=== PATIENT | male | born 1965 | race Caucasian/White ===

== ENCOUNTER 2016-11-20 14:26 | Emergency (ER) | payer OTHER ==
[2016-11-20 14:46] VITALS: O2SAT 93
[2016-11-20] MEDS ORDERED: BACIGUENT PACKET ONE (16:54)
[2016-11-20] MEDS ORDERED: XYLOCAINE 1% HCL 20 ML MDV ONE (16:54)
[2016-11-20] MEDS ORDERED: BACIGUENT PACKET TP ONE (17:09)
[2016-11-20] MEDS ORDERED: XYLOCAINE 1% HCL 20 ML MDV IJ ONE (17:09)
--- NOTE | 2016-11-20 17:48 | ERPHSYRPT ---
- History of Present Illness Time Seen by Provider: 11/20/16 17:43 Source: patient Exam Limitations: no limitations Patient Subjective Stated Complaint: pt states he lacerated left hand while cutting roscoe. pt has laceration to left palm. Triage Nursing Assessment: pt pink, warm, dry. bleeding controlled with pressure dressing. pt has 4cm laceration to left medial palm on left hand. Physician History: The patient is a right-handed 51-year-old male who accidentally cut the palm of his left hand near his thumb with a knife while cutting material for roscoe. This happened earlier today. He denies numbness or tingling. He denies any problems with movement of his fingers or thumb his last tetanus vaccination was last year. Occurred: just prior to arrival Method of Injury: incised Quality: constant Severity of Pain-Max: mild Severity of Pain-Current: mild Extremities Pain Location: hand: left Modifying Factors: Improves With: nothing Associated Symptoms: none Allergies/Adverse Reactions: codeine Allergy (Intermediate, Verified 11/20/16 14:46) Hives Hx Tetanus, Diphtheria Vaccination/Date Given: Yes (up to date) Hx Influenza Vaccination/Date Given: No Hx Pneumococcal Vaccination/Date Given: No Immunizations Up to Date: Yes - Review of Systems Constitutional: No Fever, No Chills Eyes: No Symptoms Ears, Nose, & Throat: No Symptoms Respiratory: No Cough, No Dyspnea Cardiac: No Chest Pain, No Edema, No Syncope Abdominal/Gastrointestinal: No Abdominal Pain, No Nausea, No Vomiting, No Diarrhea Genitourinary Symptoms: No Dysuria Musculoskeletal: No Back Pain, No Neck Pain Skin: Other (laceration) Neurological: No Dizziness, No Focal Weakness, No Sensory Changes Psychological: No Symptoms Endocrine: No Symptoms Hematologic/Lymphatic: No Symptoms Immunological/Allergic: No Symptoms All Other Systems: Reviewed and Negative - Past Medical History Pertinent Past Medical History: Yes Respiratory History: Asthma Musculoskeletal History: Other Other Medical History: mrsa/ Hep C - Past Surgical History Past Surgical History: No Other Surgical History: drainage tube in head, left eye, right chin - Social History Smoking Status: Current every day smoker How long have you smoked: 45 Exposure to second hand smoke: No Drug Use: none Patient Lives Alone: No - Nursing Vital Signs Nursing Vital Signs: Initial Vital Signs Temperature 97.8 F Temperature Source Oral Pulse Rate 65 Respiratory Rate 16 Blood Pressure [Right Arm] 138/66 Pain Intensity 0 - Physical Exam General Appearance: alert Eyes, Ears, Nose, Throat Exam: moist mucous membranes Neck Exam: non-tender, supple Cardiovascular/Respiratory Exam: chest non-tender, normal breath sounds, regular rate/rhythm, no respiratory distress Abdominal Exam: non-tender, No guarding Back Exam: normal inspection, No vertebral tenderness Shoulder Exam: normal inspection Elbow/Forearm Exam: normal inspection Wrist Exam: normal inspection Hand Exam: laceration (left palm lac) Neuro/Tendon Exam: normal sensation, normal motor functions Mental Status Exam: alert, oriented x 3, cooperative Skin Exam: laceration (2 cm lac) SpO2 Interpretation: normal SpO2: 93 Oxygen Delivery: Room Air Procedures - Laceration/Wound Repair Left Hand Wound Location: Left, hand Wound's Depth, Shape: superficial, linear Wound Explored: clean Irrigated: Yes Hibiclens Prep: Yes Anesthesia: 1% Lidocaine Volume Anesthetic (ccs): 12 Wound Repaired With: sutures Suture Size/Type: 4-0, nylon Number of Sutures: 5 Layer Closure?: No Sterile Dressing Applied?: Yes Splint Applied?: No Sling Applied?: No Ordered Tests: Active Orders 24 hr Category Date Time Status Prepare for Sutures STAT Care 11/20/16 17:09 Active Sutures STAT Care 11/20/16 17:10 Active Wound Care STAT Care 11/20/16 17:09 Active Medication Summary Discontinued Medications Generic Name Dose Route Start Last Admin Trade Name Freq PRN Reason Stop Dose Admin Bacitracin Confirm 11/20/16 16:54 Baciguent Packet Administered 11/20/16 16:55 Dose 1 gm .ROUTE .STK-MED ONE Bacitracin 0.9 gm 11/20/16 17:09 11/20/16 17:32 Baciguent Packet TP 11/20/16 17:10 0.9 gm STAT ONE Administration Lidocaine HCl Confirm 11/20/16 16:54 Xylocaine 1% Hcl 20 Ml Mdv Administered 11/20/16 16:55 Dose 20 ml .ROUTE .STK-MED ONE Lidocaine HCl 20 ml 11/20/16 17:09 11/20/16 17:31 Xylocaine 1% Hcl 20 Ml Mdv IJ 11/20/16 17:10 20 ml STAT ONE Administration - Progress Progress: improved Counseled pt/family regarding: diagnosis - Departure Time of Disposition: 17:47 Departure Disposition: Home Clinical Impression: Laceration of hand Condition: Stable Critical Care Time: No Instructions: Care for a Laceration After Repair Additional Instructions: Remove sutures in 12 to 14 days. Augmentin 875 twice a day for 10 days. Prescriptions: Amoxicillin/Potassium Clav [Augmentin 875-125 Tablet] 875 mg PO BID #20 tablet
[2016-11-20 17:59] VITALS: BP 136/77; PULSE 68
== END 2016-11-20 17:59 | disposition home or self-care (01) ==
LOC: ED 14:26
PROC: 0HQGXZZ Repair Left Hand Skin, External Approach (ICD-10-PCS; principal; 2016-11-20)
DX: S61.412A Laceration without foreign body of left hand, initial encounter (principal); W26.0XXA Contact with knife, initial encounter; Y93.H3 Activity, building and construction
CPT/HCPCS: 12001; 99283; A9270-GY

== ENCOUNTER 2016-12-06 09:25 | Emergency (ER) | payer OTHER ==
[2016-12-06 09:38] VITALS: O2SAT 97
--- NOTE | 2016-12-06 09:47 | ERPHSYRPT ---
- History of Present Illness Time Seen by Provider: 12/06/16 09:35 Source: patient Exam Limitations: no limitations Patient Subjective Stated Complaint: PT REPORTS HAVING STITCHES PUT IN HIS LEFT HAND ON THE 15TH-STATES HE STOPPED TAKING ANTIBIOTICS DUE TO UPSET STOMACH- STATES THAT WOUND IS INFECTED Triage Nursing Assessment: PT PINK WARM ET DRY-5 STITCHES NOTED TO LEFT HAND- REDNESS NOTED TO HAND-RESP EASY ET NONLABORED Timing/Duration: week(s) (2) Quality: other (sutures have released with wound granulation by secondary healing) Severity: mild Location: hands Possible Causes: other (infected laceration site) Associated Symptoms: denies symptoms Allergies/Adverse Reactions: codeine Allergy (Intermediate, Verified 12/06/16 09:38) Hives Home Medications: No Home Meds 1 ea UD 12/06/16 [History] Hx Tetanus, Diphtheria Vaccination/Date Given: Yes Hx Influenza Vaccination/Date Given: No Hx Pneumococcal Vaccination/Date Given: No Immunizations Up to Date: Yes - Review of Systems Constitutional: No Symptoms Eyes: No Symptoms Ears, Nose, & Throat: No Symptoms Respiratory: No Symptoms Cardiac: No Symptoms Abdominal/Gastrointestinal: No Symptoms Musculoskeletal: No Symptoms Skin: Other, No Induration Neurological: No Symptoms Psychological: No Symptoms Endocrine: No Symptoms Hematologic/Lymphatic: No Symptoms Immunological/Allergic: No Symptoms - Past Medical History Pertinent Past Medical History: Yes Respiratory History: Asthma Musculoskeletal History: Other Other Medical History: mrsa/ Hep C - Past Surgical History Past Surgical History: No Other Surgical History: drainage tube in head, left eye, right chin - Social History Smoking Status: Current every day smoker How long have you smoked: 45 Exposure to second hand smoke: No Drug Use: none Patient Lives Alone: No - Nursing Vital Signs Nursing Vital Signs: Initial Vital Signs Temperature 98.5 F Temperature Source Oral Pulse Rate 70 Respiratory Rate 22 Blood Pressure [Right Arm] 151/92 Pain Intensity 4 - Physical Exam General Appearance: no apparent distress Eye Exam: eyes nml inspection Ears, Nose, Throat Exam: normal ENT inspection, pharynx normal Neck Exam: normal inspection, non-tender, supple, full range of motion Respiratory Exam: normal breath sounds, lungs clear Cardiovascular Exam: regular rate/rhythm, normal heart sounds, normal peripheral pulses Gastrointestinal/Abdomen Exam: soft, normal bowel sounds Extremity Exam: normal range of motion, other (minimal erythema left wrist volar surface with wound dehisced and granulation of 3 cm vertical laceration. Sutures intact to lateral aspect of wound. No drainage or purulence. ) Neurologic Exam: alert, oriented x 3, cooperative Skin Exam: warm, dry SpO2: 97 Oxygen Delivery: Room Air - Course Nursing assessment & vital signs reviewed: Yes - Progress Progress: improved Counseled pt/family regarding: diagnosis, need for follow-up (PCP 1 week) - Departure Time of Disposition: 09:45 Departure Disposition: Home Clinical Impression: Laceration, Visit for suture removal Wound dehiscence, external operation Qualifiers: Encounter type: sequela Qualified Code(s): T81.31XS - Disruption of external operation (surgical) wound, not elsewhere classified, sequela Condition: Stable Critical Care Time: No Prescriptions: Cephalexin Mh 500 mg [Keflex 500 mg] 1 cap PO QID #40 capsule
[2016-12-06 10:08] VITALS: BP 160/85; PULSE 65
== END 2016-12-06 10:07 | disposition home or self-care (01) ==
LOC: ED 09:25
DX: T81.31XD Disruption of external operation (surgical) wound, not elsewhere classified, subsequent encounter (principal); Z48.02 Encounter for removal of sutures
CPT/HCPCS: 99284

== ENCOUNTER 2020-01-09 12:29 | Emergency (ER) | payer OTHER ==
--- NOTE | 2020-01-09 13:13 | ERPHSYRPT ---
- History of Present Illness Time Seen by Provider: 01/09/20 12:39 Source: patient Exam Limitations: other (Poor Historian) Patient Subjective Stated Complaint: pt states he was fishing and tripped in rocks and twisted left ankle, he aslo has laceration to top of foot. Triage Nursing Assessment: pt alert, resp easy, walked in on crutches, pt has laceration to top of foot that pt has already placed super glue on,no bleeding, no swelling to foot or ankle noted Physician History: 54 yo wm fell while fishing at 7AM. Pt has a dorsal L foot lac which he used super glue to close. Pain is 10/10. He denies other injuries and tetanus is UTD. Method of Injury: fell Occurred: other (6 hours ago) Quality: constant Severity of Pain-Max: severe Severity of Pain-Current: severe Lower Extremities Pain: foot: right Modifying Factors: Improves With: nothing Associated Symptoms: none Allergies/Adverse Reactions: codeine Allergy (Intermediate, Verified 12/06/16 09:38) Hives Home Medications: No Home Meds [No Home Meds] 1 ea UD 12/06/16 [History] Hx Tetanus, Diphtheria Vaccination/Date Given: Yes (2 yrs ago) Hx Influenza Vaccination/Date Given: No Hx Pneumococcal Vaccination/Date Given: No Immunizations Up to Date: Yes Travel Risk - International Travel Have you traveled outside of the country in past 3 weeks: No Have you or anyone close to you been diagnosed with or: No Do your reside in a community with a known COVID-19 case?: Yes If Yes where:: [place] - Coronavirus Screening Has patient experienced Coronavirus symptoms: No - Review of Systems Constitutional: No Symptoms Eyes: No Symptoms Ears, Nose, & Throat: No Symptoms Respiratory: Wheezing Cardiac: No Symptoms Abdominal/Gastrointestinal: No Symptoms Genitourinary Symptoms: No Symptoms Skin: No Symptoms Neurological: No Symptoms Psychological: No Symptoms Endocrine: No Symptoms Hematologic/Lymphatic: No Symptoms Immunological/Allergic: No Symptoms - Past Medical History Pertinent Past Medical History: Yes Neurological History: No Pertinent History ENT History: No Pertinent History Cardiac History: No Pertinent History Respiratory History: Asthma Musculoskeletal History: No Pertinent History, Other GI Medical History: No Pertinent History History: No Pertinent History Psycho-Social History: No Pertinent History Male Reproductive Disorders: No Pertinent History Other Medical History: mrsa/ Hep C - Past Surgical History Past Surgical History: No Neuro Surgical History: No Pertinent History Cardiac: No Pertinent History Respiratory: No Pertinent History Gastrointestinal: No Pertinent History Genitourinary: No Pertinent History Musculoskeletal: No Pertinent History Male Surgical History: No Pertinent History Other Surgical History: drainage tube in head, left eye, right chin - Social History Smoking Status: Current every day smoker (<1ppd) How long have you smoked: 45 Exposure to second hand smoke: Yes Alcohol Use: Socially Drug Use: none Patient Lives Alone: No Significant Family History: no pertinent family hx - Nursing Vital Signs Nursing Vital Signs: Initial Vital Signs Temperature 98.4 F 01/09/20 12:38 Pulse Rate 100 H 01/09/20 12:38 Respiratory Rate 20 01/09/20 12:38 Blood Pressure 191/109 01/09/20 12:38 O2 Sat by Pulse Oximetry 98 01/09/20 12:38 Pain Scale Pain Intensity 4 - Physical Exam General Appearance: no apparent distress (Mild pain) Eyes, Ears, Nose, Throat Exam: normal ENT inspection Neck Exam: normal inspection Cardiovascular/Respiratory Exam: chest non-tender, no JVD (Mildly tachy wo M/ Scattered wheezes B), wheezing Gastrointestinal/Abdominal Exam: non-tender Back Exam: normal inspection Hips Exam: bilateral: non-tender, normal inspection, normal range of motion Legs Exam: bilateral leg: non-tender, normal inspection, normal range of motion Knees Exam: bilateral knee: non-tender, normal inspection, normal range of motion, no evidence of injury Ankle Exam: bilateral ankle: non-tender, normal inspection, normal range of motion, no evidence of injury Foot Exam: left foot: abrasions/lacerations (Dorsal abrasion L dorsal foot covwered in super glue/Good distal capillary return, sensation, and pedal pulse) Neuro/Tendon Exam: normal sensation, normal motor functions, normal tendon functions Mental Status Exam: alert, oriented x 3, cooperative Skin Exam: normal color, warm, dry SpO2 Interpretation: normal SpO2: 98 O2 Delivery: Room Air - Course Nursing assessment & vital signs reviewed: Yes - Radiology Exams Left Foot X-ray Interpretation: Interpreted by me, Negative, No Fracture Ordered Tests: Active Orders 24 hr Category Date Time Status [facility] Bandage Application -[facility] STAT Care 01/09/20 13:20 Active FOOT (MINIMUM 3 VIEWS) Stat Exams 01/09/20 12:57 Taken Medication Summary Discontinued Medications Generic Name Dose Route Start Last Admin Trade Name Freq PRN Reason Stop Dose Admin Ketorolac Tromethamine 60 mg 01/09/20 13:20 01/09/20 13:25 Toradol 30 Mg Injection IM 01/09/20 13:21 60 mg STAT ONE Administration Ketorolac Tromethamine Confirm 01/09/20 13:21 Toradol 30 Mg Injection Administered 01/09/20 13:22 Dose 60 mg .ROUTE .STK-MED ONE - Progress Progress: improved Progress Note: 01/09/20 13:44 Wound cleaned and dressed per nurse/NVI - Departure Departure Disposition: Home Clinical Impression: Laceration, Foot laceration Condition: Stable Critical Care Time: No Referrals: ЕЛЕНА DOVER [Primary Care Provider] - Additional Instructions: Wash laceration 1-2 times a day with soap/water Watch for signs of infection-redness/pain/pus/temperature greater than 100.5 Prescriptions: Ketorolac Tromethamine [Toradol] 10 mg PO Q8H PRN PRN #10 tablet PRN Reason: Pain Albuterol Sulfate [Albuterol Sulfate Hfa] 18 gm IH Q4-6HPRN PRN #1 [id number] PRN Reason: Shortness Of Breath/Wheezing Amox Tr/Potass Clav. 875 mg [Augmentin 875-125 Tablet] 1 each PO BID #14 tablet Naproxen 500 mg [Naprosyn 500 MG] 500 mg PO BIDPRN PRN #10 tablet PRN Reason: Pain
[2020-01-09] MEDS ORDERED: TORAdol 30 mg Injection IM ONE (13:20)
[2020-01-09] MEDS ORDERED: TORAdol 30 mg Injection ONE (13:21)
[2020-01-09 14:11] VITALS: BP 176/99; PULSE 80; O2SAT 95
--- NOTE | 2020-01-09 20:28 | XRAY ---
Indication: Pain following injury. Comparison: None 3 nonweightbearing views left foot demonstrates mild anterior soft tissue swelling. No other bony, articular, or soft tissue abnormalities.
== END 2020-01-09 14:18 | disposition home or self-care (01) ==
LOC: ED 12:29
DX: S91.312A Laceration without foreign body, left foot, initial encounter (principal); W26.9XXA Contact with unspecified sharp object(s), initial encounter; S90.812A Abrasion, left foot, initial encounter; Y99.9 Unspecified external cause status; X50.1XXA Overexertion from prolonged static or awkward postures, initial encounter; Y93.01 Activity, walking, marching and hiking; Y92.89 Other specified places as the place of occurrence of the external cause; M79.672 Pain in left foot; Z86.14 Personal history of Methicillin resistant Staphylococcus aureus infection; B19.20 Unspecified viral hepatitis C without hepatic coma; Z72.0 Tobacco use
CPT/HCPCS: 73630; 96372; 99284; J1885; L4386

== ENCOUNTER 2021-11-15 11:01 | Emergency (ER) | payer OTHER ==
--- NOTE | 2021-11-15 11:13 | ERPHSYRPT ---
- History of Present Illness Time Seen by Provider: 11/15/21 11:10 Source: patient Exam Limitations: no limitations Physician History: This is a 56-year-old white male patient of Dr. Jaimee Dover who presents with 1 week history of upper chest discomfort that radiates into his back intermittently and associated myalgias arthralgias and cough. He has been exposed to a grand daughter who been ill. Patient does not have significant shortness of breath. He has no abdominal pain. He has no nausea vomiting or diarrhea. He denies fever. Patient states that he has not been at work for the last week because he has felt ill. He has no known exposure to any individual with COVID-19. Patient states that he himself has no known cardiac issues. However, there is a family history of coronary artery disease. Timing/Duration: week(s) (1) Severity: mild (To moderate) Associated Symptoms: chest pain (Upper chest with radiation into the back), No nausea, No vomiting, No abdominal pain, No shortness of breath, No fever Allergies/Adverse Reactions: codeine Allergy (Intermediate, Verified 11/15/21 11:17) Hives Home Medications: No Home Meds [No Home Meds] 1 ea UD 12/06/16 [History] Hx Tetanus, Diphtheria Vaccination/Date Given: Yes (2 yrs ago) Hx Influenza Vaccination/Date Given: No Hx Pneumococcal Vaccination/Date Given: No Travel Risk - International Travel Have you traveled outside of the country in past 3 weeks: No - Coronavirus Screening Are you exhibiting any of the following symptoms?: No Close contact with a COVID-19 positive Pt in past 14-21 Days: No - Review of Systems Constitutional: No Symptoms Eyes: No Symptoms Ears, Nose, & Throat: No Symptoms Respiratory: No Symptoms Cardiac: Chest Pain Abdominal/Gastrointestinal: No Symptoms Genitourinary Symptoms: No Symptoms Musculoskeletal: Arthralgias, Myalgias Skin: No Symptoms Neurological: No Symptoms Psychological: No Symptoms Endocrine: No Symptoms Hematologic/Lymphatic: No Symptoms Immunological/Allergic: No Symptoms All Other Systems: Reviewed and Negative - Past Medical History Pertinent Past Medical History: Yes Neurological History: No Pertinent History ENT History: No Pertinent History Cardiac History: No Pertinent History Respiratory History: Asthma Musculoskeletal History: No Pertinent History, Other GI Medical History: No Pertinent History History: No Pertinent History Psycho-Social History: No Pertinent History Male Reproductive Disorders: No Pertinent History Other Medical History: mrsa/ Hep C - Past Surgical History Past Surgical History: No Neuro Surgical History: No Pertinent History Cardiac: No Pertinent History Respiratory: No Pertinent History Gastrointestinal: No Pertinent History Genitourinary: No Pertinent History Musculoskeletal: No Pertinent History Male Surgical History: No Pertinent History Other Surgical History: drainage tube in head, left eye, right chin - Social History Smoking Status: Current every day smoker (<1ppd) How long have you smoked: 45 Exposure to second hand smoke: Yes Alcohol Use: Socially Drug Use: none Patient Lives Alone: No Significant Family History: no pertinent family hx - Nursing Vital Signs Nursing Vital Signs: Initial Vital Signs Pulse Rate 70 11/15/21 11:02 Pain Scale Pain Intensity 2 - Physical Exam General Appearance: no apparent distress, alert, anxiety Eye Exam: PERRL/EOMI, eyes nml inspection Ears, Nose, Throat Exam: normal ENT inspection, moist mucous membranes Neck Exam: normal inspection, non-tender, supple, full range of motion Respiratory Exam: normal breath sounds, chest tenderness, lungs clear, airway intact, No respiratory distress Cardiovascular Exam: regular rate/rhythm, normal heart sounds, normal peripheral pulses Gastrointestinal/Abdomen Exam: soft, normal bowel sounds, No tenderness Rectal Exam: not done Back Exam: normal inspection, normal range of motion, No CVA tenderness, No vertebral tenderness Extremity Exam: normal inspection, normal range of motion, pelvis stable Neurologic Exam: alert, oriented x 3, cooperative, records coordinator II-XII nml as tested, normal mood/affect, nml cerebellar function, nml station & gait, sensation nml Skin Exam: normal color, warm, dry Lymphatic Exam: No adenopathy SpO2 Interpretation: normal O2 Delivery: Room Air - Course Nursing assessment & vital signs reviewed: Yes EKG Interpreted by Me: RATE (77), Sinus Rhythm, NORMAL AXIS, NORMAL INTERVALS, NORMAL QRS, NORMAL ST-T, Other (No acute ischemic changes on today's EKG. I compared today's EKG with that of 01/03/2016) Ordered Tests: Active Orders 24 hr Category Date Time Status Otolaryngology Teacher STAT Care 11/15/21 11:17 Active EKG-ER Only STAT Care 11/15/21 11:16 Active IV Insertion STAT Care 11/15/21 11:16 Active Pulse Oximetry (ED) STAT Care 11/15/21 11:16 Active CHEST 1 VIEW (PORTABLE) Stat Exams 11/15/21 11:16 Completed CHEST WITH CONTRAST [CT] Stat Exams 11/15/21 13:33 Completed BLOOD CULTURE Stat Lab 11/15/21 11:58 Received CBC W DIFF Stat Lab 11/15/21 11:50 Completed CMP Stat Lab 11/15/21 11:50 Completed COVID AG-BINAX NOW RAPID TEST Stat Lab 11/15/21 11:18 Completed D-DIMER QUANTITATIVE Stat Lab 11/15/21 11:50 Completed INFLUENZA A+B MEIR Stat Lab 11/15/21 11:17 Completed Lactic Acid Stat Lab 11/15/21 11:50 Completed Mcleod Screen Stat Lab 11/15/21 11:50 Completed NT PRO BNP Stat Lab 11/15/21 11:50 Completed PROTIME WITH INR Stat Lab 11/15/21 11:50 Completed TROPONIN Q3H Lab 11/15/21 11:50 Completed Medication Summary Generic Name Dose Route Start Last Admin Trade Name Freq PRN Reason Stop Dose Admin Sodium Chloride 1,000 mls @ 100 mls/hr 11/15/21 11:30 11/15/21 11:25 Sodium Chloride 0.9% 1000 Ml IV 12/15/21 11:29 100 mls/hr .Q10H MALICK Administration Discontinued Medications Generic Name Dose Route Start Last Admin Trade Name Freq PRN Reason Stop Dose Admin Aspirin 324 mg 11/15/21 11:16 11/15/21 11:25 Aspirin 81 Mg Tab.Chew PO 11/15/21 11:17 324 mg STAT ONE Administration Aspirin Confirm 11/15/21 11:23 Aspirin 81 Mg Tab.Chew Administered 11/15/21 11:24 Dose 324 mg .ROUTE .STK-MED ONE Lab/Rad Data: Laboratory Result Diagrams 11/15/21 11:50 11/15/21 11:50 Laboratory Results 11/15/21 11/15/21 11/15/21 Range/Units 11:50 11:50 11:50 WBC (4.0-10.5) K/mm3 RBC (4.1-5.6) M/mm3 Hgb (12.5-18.0) gm/dl Hct (42-50) % MCV (78-100) fl MCH (26-32) pg MCHC (32-36) g/dl RDW (11.5-14.0) % Plt Count (150-450) K/mm3 MPV (7.5-11.0) fl Gran % (36.0-66.0) % Eos # (Auto) (0-0.5) Absolute Lymphs (auto) (1.0-4.6) Absolute Monos (auto) (0.0-1.3) Lymphocytes % (24.0-44.0) % Monocytes % (0.0-12.0) % Eosinophils % (0.00-5.0) % Basophils % (0.0-0.4) % Absolute Granulocytes (1.4-6.9) Basophils # (0-0.4) PT 12.5 (9.4-12.5) SECONDS INR 1.06 (0.8-3.0) D-Dimer 916 H* (215-500) ng/mL Sodium (137-145) mmol/L Potassium (3.5-5.1) mmol/L Chloride (98-107) mmol/L Carbon Dioxide (22-30) mmol/L Anion Gap (5-15) MEQ/L BUN (9-20) mg/dL Creatinine (0.66-1.25) mg/dL Estimated GFR ML/MIN Glucose (74-106) mg/dL Lactic Acid (0.4-2.0) Calcium (8.4-10.2) mg/dL Total Bilirubin (0.2-1.3) mg/dL AST (17-59) U/L ALT (0-50) U/L Alkaline Phosphatase (38-126) U/L Troponin I < 0.012 (0.000-0.034) ng/mL NT-Pro-B Natriuret Pep (0-900) pg/mL Serum Total Protein (6.3-8.2) g/dL Albumin (3.5-5.0) g/dL Monoscreen NEGATIVE (Negative) Influenza Type A Ag (NEGATIVE) Influenza Type B Ag (NEGATIVE) SARS-CoV-2 Ag (Rapid) (NEGATIVE) Group A Strep Antibody (NEGATIVE) 11/15/21 11/15/21 11/15/21 Range/Units 11:50 11:50 11:50 WBC 6.8 (4.0-10.5) K/mm3 RBC 4.20 (4.1-5.6) M/mm3 Hgb 12.5 (12.5-18.0) gm/dl Hct 38.8 L (42-50) % MCV 92.4 (78-100) fl MCH 29.8 (26-32) pg MCHC 32.2 (32-36) g/dl RDW 12.7 (11.5-14.0) % Plt Count 330 (150-450) K/mm3 MPV 10.5 (7.5-11.0) fl Gran % 63.7 (36.0-66.0) % Eos # (Auto) 0.07 (0-0.5) Absolute Lymphs (auto) 1.74 (1.0-4.6) Absolute Monos (auto) 0.64 (0.0-1.3) Lymphocytes % 25.6 (24.0-44.0) % Monocytes % 9.4 (0.0-12.0) % Eosinophils % 1.0 (0.00-5.0) % Basophils % 0.3 (0.0-0.4) % Absolute Granulocytes 4.32 (1.4-6.9) Basophils # 0.02 (0-0.4) PT (9.4-12.5) SECONDS INR (0.8-3.0) D-Dimer (215-500) ng/mL Sodium 138 (137-145) mmol/L Potassium 4.3 (3.5-5.1) mmol/L Chloride 107 (98-107) mmol/L Carbon Dioxide 24 (22-30) mmol/L Anion Gap 11.3 (5-15) MEQ/L BUN 14 (9-20) mg/dL Creatinine 0.83 (0.66-1.25) mg/dL Estimated GFR > 60.0 ML/MIN Glucose 87 (74-106) mg/dL Lactic Acid 1.4 (0.4-2.0) Calcium 9.1 (8.4-10.2) mg/dL Total Bilirubin 0.30 (0.2-1.3) mg/dL AST 16 L (17-59) U/L ALT 14 (0-50) U/L Alkaline Phosphatase 69 (38-126) U/L Troponin I (0.000-0.034) ng/mL NT-Pro-B Natriuret Pep 470 (0-900) pg/mL Serum Total Protein 7.1 (6.3-8.2) g/dL Albumin 3.9 (3.5-5.0) g/dL Monoscreen (Negative) Influenza Type A Ag (NEGATIVE) Influenza Type B Ag (NEGATIVE) SARS-CoV-2 Ag (Rapid) (NEGATIVE) Group A Strep Antibody (NEGATIVE) 11/15/21 11/15/21 11/15/21 Range/Units 11:18 11:17 11:17 WBC (4.0-10.5) K/mm3 RBC (4.1-5.6) M/mm3 Hgb (12.5-18.0) gm/dl Hct (42-50) % MCV (78-100) fl MCH (26-32) pg MCHC (32-36) g/dl RDW (11.5-14.0) % Plt Count (150-450) K/mm3 MPV (7.5-11.0) fl Gran % (36.0-66.0) % Eos # (Auto) (0-0.5) Absolute Lymphs (auto) (1.0-4.6) Absolute Monos (auto) (0.0-1.3) Lymphocytes % (24.0-44.0) % Monocytes % (0.0-12.0) % Eosinophils % (0.00-5.0) % Basophils % (0.0-0.4) % Absolute Granulocytes (1.4-6.9) Basophils # (0-0.4) PT (9.4-12.5) SECONDS INR (0.8-3.0) D-Dimer (215-500) ng/mL Sodium (137-145) mmol/L Potassium (3.5-5.1) mmol/L Chloride (98-107) mmol/L Carbon Dioxide (22-30) mmol/L Anion Gap (5-15) MEQ/L BUN (9-20) mg/dL Creatinine (0.66-1.25) mg/dL Estimated GFR ML/MIN Glucose (74-106) mg/dL Lactic Acid (0.4-2.0) Calcium (8.4-10.2) mg/dL Total Bilirubin (0.2-1.3) mg/dL AST (17-59) U/L ALT (0-50) U/L Alkaline Phosphatase (38-126) U/L Troponin I (0.000-0.034) ng/mL NT-Pro-B Natriuret Pep (0-900) pg/mL Serum Total Protein (6.3-8.2) g/dL Albumin (3.5-5.0) g/dL Monoscreen (Negative) Influenza Type A Ag NEGATIVE (NEGATIVE) Influenza Type B Ag NEGATIVE (NEGATIVE) SARS-CoV-2 Ag (Rapid) NEGATIVE (NEGATIVE) Group A Strep Antibody NOT DETECTED (NEGATIVE) - Progress Progress: improved, re-examined Progress Note: 11/15/21 13:36 Chest x-ray shows no acute cardiopulmonary process. There are chronic changes present. - Departure Departure Disposition: Home Clinical Impression: Non-cardiac chest pain, Bronchitis Condition: Stable Critical Care Time: No Referrals: ЕЛЕНА DOVER [Primary Care Provider] - Follow up/PCP as directed Additional Instructions: Avoid exposure to any type of smoke. Take medication as prescribed. Follow-up with your primary care provider for further management. Prescriptions: Prednisone 10 mg [Deltasone 10 mg] 10 mg PO TID #12 tablet
[2021-11-15] MEDS ORDERED: BABY ASPIRIN 81 MG CHEW PO ONE (11:16)
[2021-11-15] MEDS ORDERED: BABY ASPIRIN 81 MG CHEW ONE (11:23)
[2021-11-15] MEDS ORDERED: Sodium Chloride 0.9% 1000 ML 1,000 ML ONE (11:23)
[2021-11-15] MEDS ORDERED: Sodium Chloride 0.9% 1000 ML 1,000 ML IV SCH (11:30)
--- NOTE | 2021-11-15 11:41 | XRAY ---
Indication: Cough 1 week. Chest pain. Comparison: January 03, 2016. Portable chest remains hyperinflated and clear. Heart not enlarged again with incidental hilar calcified granulomas. Bony thorax intact again with mild osteopenia, degenerative changes, and scoliosis. Impression: Continued nonacute hyperinflated chest with chronic features.
[2021-11-15 12:17] LABS: Absolute Neutrophil Ct (ANC) 4.32 (1.4-6.9); Basophil (Absolute #) 0.02 (0-0.4); Eosinophil (Absolute #) 0.07 (0-0.5); Hematocrit 38.8 % (42-50); Hemoglobin 12.5 gm/dl (12.5-18.0); Lymphocyte (Absolute #) 1.74 (1.0-4.6); Lymphocytes % 25.6 % (24.0-44.0); Mean Cell Volume 92.4 fl (78-100); Mean Corpuscular Hemoglobin 29.8 pg (26-32); Mean Corpuscular Hgb Concent. 32.2 g/dl (32-36); Mean Platelet Volume 10.5 fl (7.5-11.0); Monocyte (Absolute #) 0.64 (0.0-1.3); Monocytes % 9.4 % (0.0-12.0); Neutrophil % 63.7 % (36.0-66.0); Platelet Count 330 K/mm3 (150-450); Red Cell Distribution Width 12.7 % (11.5-14.0); White Blood Count 6.8 K/mm3 (4.0-10.5)
[2021-11-15 12:26] LABS: INR 1.06 (0.8-3.0); PROTIME 12.5 SECONDS (9.4-12.5)
[2021-11-15 12:40] LABS: COVID AG -BINAX NOW RAPID TEST NEGATIVE (NEGATIVE)
[2021-11-15 12:42] LABS: Potassium 4.3 mmol/L (3.5-5.1)
[2021-11-15 12:48] LABS: ALBUMIN 3.9 g/dL (3.5-5.0); ALKALINE PHOSPHATASE 69 U/L (38-126); BLOOD UREA NITROGEN 14 mg/dL (9-20); CHLORIDE 107 mmol/L (98-107); Calcium 9.1 mg/dL (8.4-10.2); Carbon Dioxide 24 mmol/L (22-30); Creatinine 1 0.83 mg/dL (0.66-1.25); EST GLOMERULAR FILTRATION RATE > 60.0 ML/MIN; Glucose 87 mg/dL (74-106); NT PRO BNP 470 pg/mL (0-900); SGOT/AST 16 U/L (17-59); SGPT/ALT 14 U/L (0-50); SODIUM 138 mmol/L (137-145); Total Protein 7.1 g/dL (6.3-8.2)
[2021-11-15 13:01] LABS: INFLUENZA A NEGATIVE (NEGATIVE); INFLUENZA B NEGATIVE (NEGATIVE)
[2021-11-15 13:03] LABS: ANION GAP 11.3 MEQ/L (5-15)
[2021-11-15 13:45] VITALS: O2SAT 100
[2021-11-15 13:47] VITALS: PULSE 88
[2021-11-15 13:48] VITALS: BP 139/77
--- NOTE | 2021-11-15 14:47 | XRAY ---
Indication: Chest pain and short of breath. Elevated d-dimer. Multiple contiguous axial images obtained through the chest using 100 cc Isovue 370 contrast and PE protocol. Comparison: January 04, 2016. There is good opacification of the pulmonary arteries to include the lobar and segmental branches. No pulmonary embolus. Heart not enlarged. Aorta normal in course and caliber with minimal scattered calcifications. Again multiple mediastinal and bilateral hilar calcified nodes. No pathologic mediastinal/hilar lymphadenopathy. Lungs again demonstrates bilateral scattered fibrosis/scarring and biapical subpleural cystic changes. No new pulmonary mass/nodule, infiltrate, or effusion. Bony thorax intact with minimal degenerative changes throughout the spine. Again incidental bilateral gynecomastia. Limited upper abdomen including adrenal glands are unremarkable. Impression: 1. Continued negative pulmonary embolus. No new/acute cardiopulmonary abnormalities. 2. Again chronic findings including scattered fibrosis/scarring, biapical subpleural cystic changes, old granulomatous disease, and bilateral gynecomastia.
== END 2021-11-15 15:56 | disposition home or self-care (01) ==
LOC: ED 11:01
DX: J20.9 Acute bronchitis, unspecified (principal); R07.89 Other chest pain; M79.10 Myalgia, unspecified site; R05.9 Cough, unspecified; Z20.828 Contact with and (suspected) exposure to other viral communicable diseases; Z72.0 Tobacco use; Z79.52 Long term (current) use of systemic steroids
CPT/HCPCS: 36000; 36415; 71045; 71260; 80053; 83605; 83880; 84484; 85025; 85379; 85610; 86308; 87040; 87400; 87651; 93005; 93041; 94760; 99000; 99284; A9270-GY

== ENCOUNTER 2022-01-13 21:12 | Emergency (ER) | payer OTHER | END 2022-01-13 21:53 | disposition left against medical advice (07) | LOC: ED 21:12 | DX: Z53.21 Procedure and treatment not carried out due to patient leaving prior to being seen by health care provider (principal) | CPT/HCPCS: 99281 ==

== ENCOUNTER 2023-05-24 05:16 | Emergency (ER) | payer OTHER ==
[2023-05-24] MEDS ORDERED: PROVENTIL 2.5 MG/3 ML NEB IH ONE (05:28)
[2023-05-24 05:34] VITALS: TEMP 96.5
[2023-05-24] MEDS ORDERED: ROCEPHIN 1 Gm-D5w 50 ml Bag** 1 G/50 ML IVPB IV STA (05:39)
[2023-05-24] MEDS ORDERED: solu-MEDROL 125 MG, Sterile H2O 10 ml 2 ML IV ONE ×2 (05:39)
[2023-05-24] MEDS ORDERED: Zithromax 500 MG/ 250 ML NaCl Premix 500 MG/250 ML IVPB IV STA (05:39)
--- NOTE | 2023-05-24 05:42 | ERPHSYRPT ---
- History of Present Illness Time Seen by Provider: 05/24/23 05:17 Source: patient Exam Limitations: no limitations Patient Subjective Stated Complaint: pt states that he hasn't been feeling that great for about one week and has been sob and wheezing intermittently. this m orning his sob got significantly worse and is accompanied by right sided chest pain with inhalation. Triage Nursing Assessment: pt ambulated to room 5 independently with slow steady gait after standing on scale for weight acquisition. pt is alert and oriented times three, able to move all extremities. pt with increased work of breathing, increased resp rate, and use of accessory muscles. inspiratory and expiratory wheezing noted from doorway. lung sounds auscultated anterior and posterior in all saleem with inspiratory and expiratory wheezes. skin is pink, warm, dry, and intact. heart sounds are present and regular. no edema noted. Physician History: Pt states he has had wheezing, coughing and a runny nose for the past week; also chest pain. Denies vomiting, abdominal pain, diarrhea. Allergies/Adverse Reactions: codeine Allergy (Intermediate, Verified 05/24/23 05:19) Hives Home Medications: Albuterol Sulfate 3 ml IH Q6H PRN PRN 05/24/23 [History] Albuterol Sulfate [Proair Respiclick] 2 puff IH Q6H PRN PRN 05/24/23 [History] Hx Tetanus, Diphtheria Vaccination/Date Given: Yes (2 yrs ago) Hx Influenza Vaccination/Date Given: Yes Hx Pneumococcal Vaccination/Date Given: No Immunizations Up to Date: Yes Travel Risk - International Travel Have you traveled outside of the country in past 3 weeks: No - Coronavirus Screening Are you exhibiting any of the following symptoms?: No Close contact with a COVID-19 positive Pt in past 14-21 Days: No - Vaccine Status Have you recieved a Covid-19 vaccination: No - Review of Systems Ears, Nose, & Throat: Nose Discharge Respiratory: Dyspnea Cardiac: Chest Pain Abdominal/Gastrointestinal: No Abdominal Pain, No Nausea, No Vomiting Genitourinary Symptoms: No Dysuria Neurological: No Headache - Past Medical History Pertinent Past Medical History: Yes Neurological History: No Pertinent History ENT History: No Pertinent History Cardiac History: No Pertinent History Respiratory History: Asthma Endocrine Medical History: No Pertinent History Musculoskeletal History: Other GI Medical History: Hepatitis History: No Pertinent History Psycho-Social History: No Pertinent History Male Reproductive Disorders: No Pertinent History Other Medical History: mrsa/ Hep C, sciatica - Past Surgical History Past Surgical History: Yes Neuro Surgical History: No Pertinent History Cardiac: No Pertinent History Respiratory: No Pertinent History Gastrointestinal: No Pertinent History Genitourinary: No Pertinent History Musculoskeletal: No Pertinent History Male Surgical History: No Pertinent History Other Surgical History: drainage tube in head, left eye, right chin - Social History Smoking Status: Current some day smoker How long have you smoked: 13yo Exposure to second hand smoke: Yes Alcohol Use: Socially Drug Use: none Patient Lives Alone: No Significant Family History: no pertinent family hx - Nursing Vital Signs Nursing Vital Signs: Initial Vital Signs Temperature 96.5 F 05/24/23 05:22 Pulse Rate 103 H 05/24/23 05:22 Respiratory Rate 24 05/24/23 05:22 Blood Pressure 143/83 05/24/23 05:22 O2 Sat by Pulse Oximetry 97 05/24/23 05:22 Pain Scale Pain Intensity 4 - Physical Exam General Appearance: alert Eye Exam: PERRL/EOMI Ears, Nose, Throat Exam: pharyngeal erythema (mild) Neck Exam: normal inspection Respiratory Exam: respiratory distress, wheezing Cardiovascular/Chest Exam: normal heart sounds Abdominal/Gastrointestinal Exam: soft, normal bowel sounds Extremity Exam: No pedal edema Neurologic Exam: alert, oriented x 3, cooperative Skin Exam: No cyanosis SpO2 Interpretation: normal SpO2: 98 - Course Nursing assessment & vital signs reviewed: Yes EKG Interpreted by Me: RATE (91), Sinus Rhythm, NORMAL AXIS, Other (QTc = 448) - CT Exams Chest CT Interpretation: Tele-radiologist Report (No evidence of pulmonary embolism. Interval development of mild bilateral pleural effusions. ) Ordered Tests: Active Orders 24 hr Category Date Time Status EKG-ER Only STAT Care 05/24/23 05:39 Active Pulse Oximetry (ED) STAT Care 05/24/23 05:39 Active CHEST WITH CONTRAST [CT] Stat Exams 05/24/23 05:39 Completed CBC W DIFF Stat Lab 05/24/23 05:56 Completed CMP Stat Lab 05/24/23 05:56 Completed MAGNESIUM Stat Lab 05/24/23 05:56 Completed TROPONIN Q4H Lab 05/24/23 05:56 Completed TROPONIN Q4H Lab 05/24/23 09:45 Ordered TROPONIN Q4H Lab 05/24/23 13:45 Ordered Respiratory Therapy Assessment DAILY RT 05/24/23 05:28 Active Medication Summary Generic Name Dose Route Start Last Admin Trade Name Freq PRN Reason Stop Dose Admin Sodium Chloride 1,000 mls @ 100 mls/hr 05/24/23 05:45 05/24/23 06:07 Sodium Chloride 0.9% 1000 Ml IV 06/23/23 05:44 100 mls/hr .Q10H MALICK Administration Diltiazem HCl 100 mls @ 10 mls/hr 05/24/23 07:51 05/24/23 08:05 Cardizem Drip 100 Mg/100 Ml D5w IV 06/23/23 07:50 10 mg/hr .Q10H PRN 10 mls/hr HEART RATE/ A-FIB Administration Protocol 10 MG/HR Discontinued Medications Generic Name Dose Route Start Last Admin Trade Name Gaurav PRN Reason Stop Dose Admin Adenosine Confirm 05/24/23 07:32 Adenosine 6 Mg/2 Ml Vial Administered 05/24/23 07:33 Dose 6 mg IV .STK-MED ONE Adenosine Confirm 05/24/23 07:37 Adenosine 6 Mg/2 Ml Vial Administered 05/24/23 07:38 Dose 12 mg IV .STK-MED ONE Adenosine 6 mg 05/24/23 07:48 05/24/23 07:36 Adenosine 6 Mg/2 Ml Vial IV 05/24/23 07:49 6 mg STAT ONE Administration Adenosine 12 mg 05/24/23 07:49 05/24/23 07:40 Adenosine 6 Mg/2 Ml Vial IV 05/24/23 07:50 12 mg STAT ONE Administration Albuterol Sulfate 2.5 mg 05/24/23 05:28 05/24/23 05:32 Albuterol Sulfate 2.5 Mg/3 Ml Neb IH 05/24/23 05:29 2.5 mg STAT ONE Administration Methylprednisolone Sodium 0 mg 05/24/23 05:39 05/24/23 06:08 Succinate 125 mg/ Sterile IV 05/24/23 05:40 125 mg Water 2 ml STAT ONE Administration Diltiazem HCl Confirm 05/24/23 07:42 Diltiazem Hcl Iv 5 Mg/Ml Vial Administered 05/24/23 07:43 Dose 50 mg IV .STK-MED ONE Diltiazem HCl 15 mg 05/24/23 07:49 05/24/23 08:05 Diltiazem Hcl Iv 5 Mg/Ml Vial IV 05/24/23 07:50 15 mg STAT ONE Administration Azithromycin 500 mg in 250 mls @ 250 mls/hr 05/24/23 05:39 05/24/23 06:40 Zithromax 500 Mg/ 250 Ml Nacl Premix IV 05/24/23 06:38 250 mls/hr STAT STA 250 mls/hr Administration Ceftriaxone Sodium/Dextrose 1 g in 50 mls @ 100 mls/hr 05/24/23 05:39 05/24/23 06:41 Rocephin 1 Gm-D5w 50 Ml Bag IV 05/24/23 06:08 Infused STAT STA Infusion Azithromycin Confirm 05/24/23 06:06 Zithromax 500 Mg/ 250 Ml Nacl Premix Administered 05/24/23 06:07 Dose 500 mg in 250 mls @ ud IV .STK-MED ONE Ceftriaxone Sodium/Dextrose Confirm 05/24/23 06:06 Rocephin 1 Gm-D5w 50 Ml Bag Administered 05/24/23 06:07 Dose 1 g in 50 mls @ ud IV .STK-MED ONE Diltiazem HCl Confirm 05/24/23 07:49 Cardizem Drip 100 Mg/100 Ml D5w Administered 05/24/23 07:50 Dose 100 mls @ ud IV .STK-MED ONE Methylprednisolone Sodium Succinate Confirm 05/24/23 06:06 Methylprednis Sod Succ 125 Mg/2 Ml Vial Administered 05/24/23 06:07 Dose 125 mg .ROUTE .STK-MED ONE Sterile Water Confirm 05/24/23 06:05 Water For Injection,Sterile 10 Ml Vial Administered 05/24/23 06:06 Dose 10 ml IJ .STK-MED ONE Lab/Rad Data: Laboratory Result Diagrams 05/24/23 05:56 05/24/23 05:56 Laboratory Results 05/24/23 05/24/23 05/24/23 Range/Units 05:56 05:56 05:56 WBC 11.3 H (4.0-10.5) x10^3/uL RBC 4.39 (4.1-5.6) x10^6/uL Hgb 13.3 (12.5-18.0) g/dL Hct 41.4 L (42-50) % MCV 94.3 (78-100) fL MCH 30.3 (26-32) pg MCHC 32.1 (32-36) g/dL RDW 12.8 (11.5-14.0) % Plt Count 254 (150-450) x10^3/uL MPV 9.8 (7.5-11.0) fL Gran % 76.9 H (36.0-66.0) % Immature Gran % (Auto) 0.4 (0.00-0.4) % Nucleat RBC Rel Count 0.0 (0.00-0.1) % Eos # (Auto) 0.16 (0-0.5) x10^3/uL Immature Gran # (Auto) 0.04 H (0.00-0.03) x10^3u/L Absolute Lymphs (auto) 1.65 (1.0-4.6) x10^3/uL Absolute Monos (auto) 0.70 (0.0-1.3) x10^3/uL Absolute Nucleated RBC 0.00 (0.00-0.01) x10^3u/L Lymphocytes % 14.7 L (24.0-44.0) % Monocytes % 6.2 (0.0-12.0) % Eosinophils % 1.4 (0.00-5.0) % Basophils % 0.4 (0.0-0.4) % Absolute Granulocytes 8.65 H (1.4-6.9) x10^3/uL Basophils # 0.05 (0-0.4) x10^3/uL Sodium 138 (137-145) mmol/L Potassium 4.1 (3.5-5.1) mmol/L Chloride 107 (98-107) mmol/L Carbon Dioxide 24 (22-30) mmol/L Anion Gap 10.7 (5-15) MEQ/L BUN 11 (9-20) mg/dL Creatinine 0.78 (0.66-1.25) mg/dL Estimated GFR > 60.0 ML/MIN Glucose 164 H (74-106) mg/dL Calcium 8.5 (8.4-10.2) mg/dL Magnesium 1.7 (1.6-2.3) mg/dL Total Bilirubin 0.40 (0.2-1.3) mg/dL AST 20 (17-59) U/L ALT 19 (0-50) U/L Alkaline Phosphatase 77 (38-126) U/L Troponin I < 0.012 (0.000-0.034) ng/mL Serum Total Protein 6.0 L (6.3-8.2) g/dL Albumin 3.5 (3.5-5.0) g/dL - Progress Progress Note: 05/24/23 08:14 Pt went into SVT & was given adenosine 6mg & 12 mg which decreased his rate to normal. Pt again went into SVT and was given diltiazem 15mg which decreased his rate to normal. Pt was then placed on a diltiazem drip of 10mg/hr. 05/24/23 08:16 Discussed with : Other Medical Desision Making - Discussion of managment Reviewed:: Test results - Diagnostic Testing Diagnostic test were ordered, analyzed, and reviewed by me: Yes Radiological Interpretation: Teleradiologist Report - Departure Departure Disposition: Transfer ([facility]) Clinical Impression: SVT (supraventricular tachycardia), Dyspnea, Bronchitis Condition: Stable Critical Care Time: Yes Critical Care Time(excluding separately billable procedures): Critical 30-74 mins Referrals: ЕЛЕНА DOVER [Primary Care Provider] - Follow up/PCP as directed
[2023-05-24] MEDS ORDERED: Sodium Chloride 0.9% 1000 ML 1,000 ML IV SCH (05:45)
[2023-05-24 05:59] LABS: Absolute Neutrophil Ct (ANC) 8.65 x10^3/uL (1.4-6.9); BASOPHIL % 0.4 % (0.0-0.4); Basophil (Absolute #) 0.05 x10^3/uL (0-0.4); Eosinophil % 1.4 % (0.00-5.0); Eosinophil (Absolute #) 0.16 x10^3/uL (0-0.5); Hematocrit 41.4 % (42-50); Hemoglobin 13.3 g/dL (12.5-18.0); IMMATURE GRAN # 0.04 x10^3u/L (0.00-0.03); IMMATURE GRAN % 0.4 % (0.00-0.4); Lymphocyte (Absolute #) 1.65 x10^3/uL (1.0-4.6); Lymphocytes % 14.7 % (24.0-44.0); Mean Cell Volume 94.3 fL (78-100); Mean Corpuscular Hemoglobin 30.3 pg (26-32); Mean Corpuscular Hgb Concent. 32.1 g/dL (32-36); Mean Platelet Volume 9.8 fL (7.5-11.0); Monocytes % 6.2 % (0.0-12.0); Neutrophil % 76.9 % (36.0-66.0); Platelet Count 254 x10^3/uL (150-450); Red Blood Count 4.39 x10^6/uL (4.1-5.6); Red Cell Distribution Width 12.8 % (11.5-14.0); White Blood Count 11.3 x10^3/uL (4.0-10.5)
[2023-05-24] MEDS ORDERED: Sterile H2O 10 ml IJ ONE (06:05)
[2023-05-24] MEDS ORDERED: Sodium Chloride 0.9% 1000 ML 1,000 ML ONE (06:06)
[2023-05-24] MEDS ORDERED: ROCEPHIN 1 Gm-D5w 50 ml Bag** 1 G/50 ML IVPB IV ONE (06:06)
[2023-05-24] MEDS ORDERED: solu-MEDROL ONE (06:06)
[2023-05-24] MEDS ORDERED: Zithromax 500 MG/ 250 ML NaCl Premix 500 MG/250 ML IVPB IV ONE (06:06)
[2023-05-24 06:14] LABS: ALBUMIN 3.5 g/dL (3.5-5.0); ALKALINE PHOSPHATASE 77 U/L (38-126); ANION GAP 10.7 MEQ/L (5-15); BLOOD UREA NITROGEN 11 mg/dL (9-20); CHLORIDE 107 mmol/L (98-107); Calcium 8.5 mg/dL (8.4-10.2); Carbon Dioxide 24 mmol/L (22-30); Creatinine 1 0.78 mg/dL (0.66-1.25); EST GLOMERULAR FILTRATION RATE > 60.0 ML/MIN; Glucose 164 mg/dL (74-106); MAGNESIUM 1.7 mg/dL (1.6-2.3); Potassium 4.1 mmol/L (3.5-5.1); SGOT/AST 20 U/L (17-59); SGPT/ALT 19 U/L (0-50); SODIUM 138 mmol/L (137-145)
[2023-05-24] MEDS ORDERED: Adenocard IV 6 MG/2 ML IV ONE ×4 (07:32→07:49)
[2023-05-24] MEDS ORDERED: Cardizem IV 50 MG/10 ML IV ONE ×2 (07:42→07:49)
[2023-05-24] MEDS ORDERED: CARDIZEM DRIP 100 MG/100 ML D5W 100 ML IV ONE (07:49)
[2023-05-24] MEDS ORDERED: CARDIZEM DRIP 100 MG/100 ML D5W 100 ML IV PRN (07:51)
[2023-05-24 08:00] VITALS: O2SAT 98
[2023-05-24 08:06] VITALS: BP 146/100; PULSE 180; RESP 20
--- NOTE | 2023-05-24 08:09 | XRAY ---
CLINICAL HISTORY:shortness of breath, PE protocol COMPARISON:CT dated 11/15/2021. TECHNIQUE:Contiguous axial CT images of the chest were acquired with the administration of intravenous contrast following pulmonary agiographic protocol. Coronal and sagittal reconstructions were also obtained. FINDINGS: No evidence of pulmonary embolism is noted. Bilateral mild pleural effusion noted, more on right side. Cystic emphysematous changes are noted at bilateral apices. Atelectatic changes are identified in medial segment of mid right middle lobe and lingular segment of the left upper lobe. The scanned pulmonary parenchyma shows no definite consolidative lesions. Heart size is normal, and there is no pericardial effusion. No pathologically enlarged mediastinal, hilar or axillary lymph node is identified. There is no definite mass lesion in the chest wall. Scanned upper abdomen is unremarkable IMPRESSION: 1. No evidence of pulmonary embolism is noted. 2. Interval development of mild bilateral pleural effusions. 3. Rest of the scan is grossly stable. Electronically Signed by: Jacqueline Guerrero MD. 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
== END 2023-05-24 08:41 | disposition short-term general hospital (02) ==
LOC: ED 05:16
DX: I47.1 Supraventricular tachycardia (principal); R06.00 Dyspnea, unspecified; J40 Bronchitis, not specified as acute or chronic; R05.1 Acute cough; R07.9 Chest pain, unspecified; Z79.899 Other long term (current) drug therapy; Z28.310 Unvaccinated for COVID-19; Z72.0 Tobacco use
CPT/HCPCS: 36000; 36415; 71260; 80053; 83735; 84484; 85025; 93005; 94640; 94760; 96360; 96365; 96367; 96374; 96375; 96376; 99285; 99291; J0153; J0456; J0696; J2930; J7609; A9270-GY

== ENCOUNTER 2023-09-16 09:16 | Emergency (ER) | payer OTHER ==
[2023-09-16 09:44] VITALS: TEMP 98.5
[2023-09-16] MEDS ORDERED: XYLOCAINE 1% HCL 20 ML MDV ONE (09:47)
--- NOTE | 2023-09-16 10:21 | ERPHSYRPT ---
- History of Present Illness Time Seen by Provider: 09/16/23 09:35 Source: patient Exam Limitations: no limitations Patient Subjective Stated Complaint: laceration to R forearm Triage Nursing Assessment: pt to ED c/o lac to R forearm. 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 rates 8/10 pain that radiates down to R hand. full ROM in affected extremity. cap refil < 3 sec. PWD. laceration cleaned on arrival. not actively bleeding, dressing from home bloody. adipose tissue visible. Physician History: Patient is a 58-year-old male presents to our ED for evaluation and treatment of a laceration to the volar aspect of his right forearm. Patient states he cut his arm on glass. Injury occurred just prior to arrival. Tetanus up-to-date. Pain rated 8 out of 10. Patient states the pain is localized no radiation no other injuries reported. Patient voices no other complaints or concerns at this time. Portions of this note were created with voice recognition technology. There may be grammatical, spelling, punctuation or sound alike errors Timing/Duration: today Severity: moderate Modifying Factors: Improves With: nothing Associated Symptoms: denies symptoms Allergies/Adverse Reactions: codeine Allergy (Intermediate, Verified 09/16/23 09:24) Hives Home Medications: Albuterol Sulfate 3 ml IH Q6H PRN PRN 05/24/23 [History] Albuterol Sulfate [Proair Respiclick] 2 puff IH Q6H PRN PRN 05/24/23 [History] Losartan Potassium 50 mg PO DAILY 09/16/23 [History] Metoprolol Succinate 50 mg [Toprol Xl 50 MG] 50 mg PO BID 09/16/23 [History] Hx Tetanus, Diphtheria Vaccination/Date Given: Yes (2 yrs ago) Hx Influenza Vaccination/Date Given: Yes Hx Pneumococcal Vaccination/Date Given: No Immunizations Up to Date: Yes Travel Risk - International Travel Have you traveled outside of the country in past 3 weeks: No - Coronavirus Screening Are you exhibiting any of the following symptoms?: No Close contact with a COVID-19 positive Pt in past 14-21 Days: No - Vaccine Status Have you recieved a Covid-19 vaccination: No - Review of Systems Constitutional: No Symptoms, No Fever, No Chills Eyes: No Symptoms Ears, Nose, & Throat: No Symptoms Respiratory: No Symptoms, No Cough, No Dyspnea Cardiac: No Symptoms, No Chest Pain, No Edema, No Syncope Abdominal/Gastrointestinal: No Symptoms, No Abdominal Pain, No Nausea, No Vomiting, No Diarrhea Genitourinary Symptoms: No Symptoms, No Dysuria Musculoskeletal: No Symptoms, No Back Pain, No Neck Pain Skin: No Symptoms, No Rash Neurological: No Symptoms, No Dizziness, No Focal Weakness, No Sensory Changes Psychological: No Symptoms Endocrine: No Symptoms Hematologic/Lymphatic: No Symptoms Immunological/Allergic: No Symptoms All Other Systems: Reviewed and Negative - Past Medical History Pertinent Past Medical History: Yes Neurological History: No Pertinent History ENT History: No Pertinent History Cardiac History: Hypertension Respiratory History: Asthma Endocrine Medical History: No Pertinent History Musculoskeletal History: Other GI Medical History: Hepatitis History: No Pertinent History Psycho-Social History: No Pertinent History Male Reproductive Disorders: No Pertinent History Other Medical History: mrsa/ Hep C, sciatica - Past Surgical History Past Surgical History: Yes Neuro Surgical History: No Pertinent History Cardiac: No Pertinent History Respiratory: No Pertinent History Gastrointestinal: No Pertinent History Genitourinary: No Pertinent History Musculoskeletal: No Pertinent History Male Surgical History: No Pertinent History Other Surgical History: drainage tube in head, left eye, right chin - Social History Smoking Status: Current some day smoker How long have you smoked: 15yo Exposure to second hand smoke: Yes Alcohol Use: Socially Drug Use: none Patient Lives Alone: No Significant Family History: no pertinent family hx - Nursing Vital Signs Nursing Vital Signs: Initial Vital Signs Temperature 98.5 F 09/16/23 09:26 Pulse Rate 71 09/16/23 09:26 Respiratory Rate 18 09/16/23 09:26 Blood Pressure 123/74 09/16/23 09:26 O2 Sat by Pulse Oximetry 99 09/16/23 09:26 Pain Scale Pain Intensity 8 - Physical Exam General Appearance: no apparent distress, alert Eye Exam: PERRL/EOMI, eyes nml inspection Neck Exam: normal inspection, full range of motion Respiratory Exam: normal breath sounds, airway intact, No respiratory distress Cardiovascular Exam: regular rate/rhythm, normal peripheral pulses Gastrointestinal/Abdomen Exam: No tenderness, No mass Back Exam: normal inspection, normal range of motion, No CVA tenderness, No vertebral tenderness Extremity Exam: normal inspection, normal range of motion, pelvis stable, other (The involved extremities neurovascular tact distally compartments are soft cap refill less than 2 seconds. Laceration measures 3 cm), No tenderness (Patient denies foreign body sensation at site of laceration) Neurologic Exam: alert, oriented x 3, cooperative, normal mood/affect, nml cerebellar function, nml station & gait, sensation nml, No motor deficits Skin Exam: normal color, warm, dry, No rash Lymphatic Exam: No adenopathy SpO2 Interpretation: normal SpO2: 99 O2 Delivery: Room Air Procedures - Laceration/Wound Repair Right Other Time of Procedure: 09:40 Wound Location: Right (Right volar forearm) Wound Length (cm): 3 Wound's Depth, Shape: superficial Wound Explored: clean Irrigated: Yes Hibiclens Prep: Yes Anesthesia: 1% Lidocaine Volume Anesthetic (ccs): 4 Wound Debrided: No debridement indicated Wound Repaired With: sutures Suture Size/Type: 4-0, ethilon Number of Sutures: 9 Layer Closure?: No Sterile Dressing Applied?: Yes Splint Applied?: No - Course Nursing assessment & vital signs reviewed: Yes Ordered Tests: Medication Summary Discontinued Medications Generic Name Dose Route Start Last Admin Trade Name Gaurav PRN Reason Stop Dose Admin Lidocaine HCl Confirm 09/16/23 09:47 Lidocaine Hcl 1% 20 Ml Mdv 20 Ml Ml Administered 09/16/23 09:48 Dose 4 ml .ROUTE .Pycno ONE - Progress Progress: improved Progress Note: 58-year-old male presents to our ED for evaluation and treatment of a laceration volar aspect right forearm sustained just prior to arrival. Patient lacerated his forearm on glass. Physical exam reveals a 3 cm superficial laceration. The involved extremities neurovascular intact distally compartments are soft cap refill less than 2 seconds. There is some fat extruding from the wound. However no tenderness function compromised. There does not appear to be any muscle or tendon laceration. Laceration was repaired with 9 simple interrupted sutures using 4-0 Ethilon. No intra or postprocedural complications. Patient tolerated procedure well. Patient reports his tetanus is updated. A prescription for Keflex forwarded to patient's pharmacy. Patient agrees to follow-up with his primary care doctor within 48 hours for reassessment. Sutures are to be removed in 7 days. Portions of this note were created with voice recognition technology. There may be grammatical, spelling, punctuation or sound alike errors Complexity problem addressed is low acute uncomplicated No critical care time complexity of data reviewed and analyzed is none. No specialized testing ordered. Diagnosis made based on history and physical exam Risk of complication and or risk of morbidity/mortality of patient management is moderate. A prescription for Keflex forwarded to patient's pharmacy. Vital stable. Time spent to discharge patient is approximately 15 minutes. Plan of care established for shared decision making. No social determinants of health present impede follow-up. Portions of this note were created with voice recognition technology. There may be grammatical, spelling, punctuation or sound alike errors 09/16/23 10:39 Counseled pt/family regarding: diagnosis, need for follow-up - Departure Departure Disposition: Home Clinical Impression: Laceration Condition: Stable Critical Care Time: No Referrals: ЕЛЕНА DOVER [Primary Care Provider] - Follow up/PCP as directed Additional Instructions: Discharge/Care Plan ERICKA JACOB was seen on 09/16/23 in the Emergency Room. The patient was counseled regarding Diagnosis,Lab results, Imaging studies, need for follow up and when to return to the Emergency Room. Prescriptions given: Discharge Note I have spoken with the patient and/or caregivers. I have explained the patient's condition, diagnosis and treatment plan based on the information available to me at this time. I have answered the patient's and/or caregiver's questions and addressed any concerns. The patient and/or caregivers have as good understanding of the patient's diagnosis, condition and treatment plan as can be expected at this point. The vital signs have been stable. The patient's condition is stable and appropriate for discharge from the emergency department. The patient will pursue further outpatient evaluation with the primary care physician or other designated or consulting physician as outlined in the discharge instructions. The patient and/or caregivers are agreeable to this plan of care and follow-up instructions have been explained in detail. The patient and/or caregivers have received these instruction. The patient/and or caregivers are aware that any significant change in condition or worsening of symptoms should prompt an immediate return to this or the closest emergency department or call 911. Prescriptions: Cephalexin Mh 500 mg [Keflex 500 mg] 500 mg PO TID #21 cap
[2023-09-16 10:27] VITALS: BP 155/84
[2023-09-16 10:31] VITALS: PULSE 64; RESP 20
[2023-09-16 10:43] VITALS: O2SAT 99
== END 2023-09-16 10:31 | disposition home or self-care (01) ==
LOC: ED 09:16
DX: S51.811A Laceration without foreign body of right forearm, initial encounter (principal); W25.XXXA Contact with sharp glass, initial encounter; I10 Essential (primary) hypertension; Z79.899 Other long term (current) drug therapy; Z28.310 Unvaccinated for COVID-19; Z72.0 Tobacco use
CPT/HCPCS: 12002; 99281

== ENCOUNTER 2023-09-27 15:04 | Observation (INO) | payer OTHER ==
[2023-09-27] MEDS ORDERED: Sodium Chloride 0.9% 1000 ML 1,000 ML ONE (15:10)
[2023-09-27] MEDS ORDERED: Sodium Chloride 0.9% 100 ML ONE (15:12)
[2023-09-27] MEDS ORDERED: TRANEXAMIC ACID 1000 MG/10 ML ONE (15:12)
[2023-09-27] MEDS ORDERED: Sterile H2O 10 ml IJ ONE (15:15)
[2023-09-27] MEDS ORDERED: solu-MEDROL ONE (15:15)
[2023-09-27] MEDS ORDERED: Pepcid 20 MG VIAL IV ONE ×2 (15:19→15:26)
[2023-09-27] MEDS ORDERED: solu-MEDROL 125 MG, Sterile H2O 10 ml 2 ML IV ONE ×2 (15:19)
[2023-09-27] MEDS ORDERED: TRANEXAMIC ACID 1000 MG/10 ML 1,000 MG in Sodium Chloride 0.9% 100 ML IV ONE (15:21)
--- NOTE | 2023-09-27 15:31 | ERPHSYRPT ---
- History of Present Illness Time Seen by Provider: 09/27/23 15:10 Source: patient, EMS Physician History: 58yo m presents by EMS for concerns for allergic reaction w/ significant upper lip swelling, sob, wheezing. Pt states the swelling in his lip started around 2 hrs prior to presentation, states it started on the right side of his upper lip and gradually spread to the right side as well. Pt reports some sob and a rash of uncertain age on his lower trunk and upper thighs. Pt states he had a similar episode of upper lip swelling 3wks ago that resolved w/ several doses of benadryl. Pt received 2 IM doses of epi, 50mg IV benadryl, 1 duoneb in ambulance en route to ED. Pt complains of some mild retrosternal chest discomfort, reports sob has significantly improved, complains of pain in upper lip. Denies any radiation of pain into jaw or back, denies n/v/abdominal pain. Timing/Duration: today, hour(s) (2) Severity: severe (swelling of upper lip) Modifying Factors: Improves With: nothing Associated Symptoms: shortness of breath, chest pain, No nausea, No vomiting, No abdominal pain Allergies/Adverse Reactions: codeine Allergy (Intermediate, Verified 09/27/23 15:30) Hives Home Medications: Albuterol Sulfate 3 ml IH Q6H PRN PRN 05/24/23 [History] Albuterol Sulfate [Proair Respiclick] 2 puff IH Q6H PRN PRN 05/24/23 [History] Losartan Potassium 50 mg PO DAILY 09/16/23 [History] Metoprolol Succinate 50 mg [Toprol Xl 50 MG] 50 mg PO BID 09/16/23 [History] Umeclidinium Brm/Vilanterol Tr [Anoro Ellipta 62.5-25 Mcg INH] 1 each IH UD 09/27/23 [History] Hx Tetanus, Diphtheria Vaccination/Date Given: Yes (2 yrs ago) Hx Influenza Vaccination/Date Given: Yes Hx Pneumococcal Vaccination/Date Given: No Travel Risk - Vaccine Status Have you recieved a Covid-19 vaccination: No - Review of Systems Constitutional: No Fever, No Chills, No Fatigue Ears, Nose, & Throat: Mouth Swelling, No Throat Pain, No Throat Swelling, No Painful Swallowing, No Snoring, No Stridor Respiratory: Dyspnea, Wheezing, No Stridor Cardiac: Chest Pain, No Edema, No Palpitations Abdominal/Gastrointestinal: No Symptoms Skin: Rash Neurological: No Symptoms - Past Medical History Pertinent Past Medical History: Yes Neurological History: No Pertinent History ENT History: No Pertinent History Cardiac History: Hypertension Respiratory History: Asthma Endocrine Medical History: No Pertinent History Musculoskeletal History: Other GI Medical History: Hepatitis History: No Pertinent History Psycho-Social History: No Pertinent History Male Reproductive Disorders: No Pertinent History Other Medical History: mrsa/ Hep C, sciatica - Past Surgical History Past Surgical History: Yes Neuro Surgical History: No Pertinent History Cardiac: No Pertinent History Respiratory: No Pertinent History Gastrointestinal: No Pertinent History Genitourinary: No Pertinent History Musculoskeletal: No Pertinent History Male Surgical History: No Pertinent History Other Surgical History: drainage tube in head, left eye, right chin - Social History Smoking Status: Current some day smoker How long have you smoked: 15yo Exposure to second hand smoke: Yes Alcohol Use: Socially Drug Use: none Patient Lives Alone: No Significant Family History: no pertinent family hx - Nursing Vital Signs Nursing Vital Signs: Initial Vital Signs Pulse Rate 62 09/27/23 15:06 Respiratory Rate 24 09/27/23 15:06 Blood Pressure 194/90 09/27/23 15:06 Pain Scale Pain Intensity 0 - Physical Exam General Appearance: no apparent distress, alert Eye Exam: PERRL/EOMI, eyes nml inspection Ears, Nose, Throat Exam: other (upper lip significantly swollen 2x baseline, right worse than left; no pharyngeal erythema, tongue normal in size, lower lip non-edematous) Neck Exam: normal inspection, non-tender, supple, No lymphadenopathy Respiratory Exam: airway intact, wheezing Cardiovascular Exam: regular rate/rhythm, normal heart sounds, normal peripheral pulses, capillary refill <2 sec Gastrointestinal/Abdomen Exam: soft, normal bowel sounds Skin Exam: rash (faint, pink, slightly raised papules over lower abdomen and upper thighs b/l) Lymphatic Exam: No adenopathy, No axilla node tender (L), No axilla node tender (R) SpO2 Interpretation: normal SpO2: 100 O2 Delivery: Nasal Cannula (2L) - Course Nursing assessment & vital signs reviewed: Yes EKG Interpreted by Me: RATE (64), Sinus Rhythm, NORMAL INTERVALS, NORMAL QRS, Other (no significant ST changes, not suggestive of ischemia) Ordered Tests: Active Orders 24 hr Category Date Time Status EKG-ER Only STAT Care 09/27/23 15:19 Active IV Insertion STAT Care 09/27/23 15:19 Active Oxygen-ED Only Nasal Cannula 2 lpm Care 09/27/23 15:19 Active Pulse Oximetry (ED) STAT Care 09/27/23 15:19 Active CHEST 1 VIEW (PORTABLE) Stat Exams 09/27/23 15:19 Taken CBC W DIFF Stat Lab 09/27/23 16:00 Completed CMP Stat Lab 09/27/23 16:30 Completed TROPONIN Q4H Lab 09/27/23 16:40 Completed TROPONIN Q4H Lab 09/27/23 19:30 Ordered TROPONIN Q4H Lab 09/27/23 23:30 Ordered Medication Summary Generic Name Dose Route Start Last Admin Trade Name Freq PRN Reason Stop Dose Admin Sodium Chloride 1,000 mls @ 100 mls/hr 09/27/23 15:30 09/27/23 15:50 Sodium Chloride 0.9% 1000 Ml IV 10/27/23 15:29 100 mls/hr .Q10H MALICK Administration Discontinued Medications Generic Name Dose Route Start Last Admin Trade Name Freq PRN Reason Stop Dose Admin Methylprednisolone Sodium 0 mg 09/27/23 15:19 09/27/23 15:35 Succinate 125 mg/ Sterile IV 09/27/23 15:20 125 mg Water 2 ml STAT ONE Administration Famotidine 20 mg 09/27/23 15:19 09/27/23 15:39 Famotidine 20 Mg/1 Vial IV 09/27/23 15:20 20 mg STAT ONE Administration Famotidine Confirm 09/27/23 15:26 Famotidine 20 Mg/1 Vial Administered 09/27/23 15:27 Dose 20 mg IV .STK-MED ONE Sodium Chloride Confirm 09/27/23 15:10 Sodium Chloride 0.9% 1000 Ml Administered 09/27/23 15:11 Dose 1,000 mls @ ud .ROUTE .STK-MED ONE Sodium Chloride Confirm 09/27/23 15:12 Sodium Chloride 0.9% Administered 09/27/23 15:13 Dose 100 mls @ ud .ROUTE .STK-MED ONE Tranexamic Acid 1,000 mg/ 110 mls @ 660 mls/hr 09/27/23 15:21 09/27/23 15:25 Sodium Chloride IV 09/27/23 15:30 660 mls/hr STAT ONE Administration Methylprednisolone Sodium Succinate Confirm 09/27/23 15:15 Methylprednis Sod Succ 125 Mg/2 Ml Vial Administered 09/27/23 15:16 Dose 125 mg .ROUTE .STK-MED ONE Nicotine 21 mg 09/27/23 18:17 Nicotine 21 Mg/Patch Patch TOP 09/27/23 18:18 STAT ONE Sterile Water Confirm 09/27/23 15:15 Water For Injection,Sterile 10 Ml Vial Administered 09/27/23 15:16 Dose 10 ml IJ .STK-MED ONE Tranexamic Acid Confirm 09/27/23 15:12 Tranexamic Acid 1000 Mg/10 Ml Vial/Amp Administered 09/27/23 15:13 Dose 1,000 mg .ROUTE .STK-MED ONE Lab/Rad Data: Laboratory Result Diagrams 09/27/23 16:00 09/27/23 16:30 Laboratory Results 09/27/23 09/27/23 09/27/23 Range/Units 16:40 16:30 16:00 WBC 14.5 H (4.0-10.5) x10^3/uL RBC 4.93 (4.1-5.6) x10^6/uL Hgb 14.6 (12.5-18.0) g/dL Hct 44.9 (42-50) % MCV 91.1 (78-100) fL MCH 29.6 (26-32) pg MCHC 32.5 (32-36) g/dL RDW 12.9 (11.5-14.0) % Plt Count 282 (150-450) x10^3/uL MPV 9.3 (7.5-11.0) fL Gran % 74.7 H (36.0-66.0) % Immature Gran % (Auto) 0.3 (0.00-0.4) % Nucleat RBC Rel Count 0.0 (0.00-0.1) % Eos # (Auto) 0.27 (0-0.5) x10^3/uL Immature Gran # (Auto) 0.04 H (0.00-0.03) x10^3u/L Absolute Lymphs (auto) 2.62 (1.0-4.6) x10^3/uL Absolute Monos (auto) 0.69 (0.0-1.3) x10^3/uL Absolute Nucleated RBC 0.00 (0.00-0.01) x10^3u/L Lymphocytes % 18.0 L (24.0-44.0) % Monocytes % 4.8 (0.0-12.0) % Eosinophils % 1.9 (0.00-5.0) % Basophils % 0.3 (0.0-0.4) % Absolute Granulocytes 10.85 H (1.4-6.9) x10^3/uL Basophils # 0.05 (0-0.4) x10^3/uL Sodium 133 L (137-145) mmol/L Potassium 4.3 (3.5-5.1) mmol/L Chloride 107 (98-107) mmol/L Carbon Dioxide 16 L* (22-30) mmol/L Anion Gap 15.4 H (5-15) MEQ/L BUN 34 H (9-20) mg/dL Creatinine 1.31 H (0.66-1.25) mg/dL Estimated GFR 62.3 ML/MIN Glucose 99 (74-106) mg/dL Calcium 9.6 (8.4-10.2) mg/dL Total Bilirubin 0.90 (0.2-1.3) mg/dL AST 23 (17-59) U/L ALT 14 (0-50) U/L Alkaline Phosphatase 65 (38-126) U/L Troponin I < 0.012 (0.000-0.034) ng/mL Serum Total Protein 7.3 (6.3-8.2) g/dL Albumin 4.5 (3.5-5.0) g/dL - Progress Progress: improved Progress Note: 09/27/23 16:40 pt received 2 doses IM epi, 50mg IV benadryl, 125 solumedrol, 20mg IV pepcid, 1g TXA on re-evaluation - upper lip still swollen but slightly improved, pt reports feeling much better, able to breath w/o difficulty, able to swallow secretions w/o difficulty, vitally stable plan for admission for observation 09/27/23 17:00 repeat ekg 15:23 showed sinus rhythm, 62bpm, no ST changes suggestive of ischemia 01/20/24 18:07 Pt continues to be vitally stable, upper lip swelling improving page sent to hospitalist Discussed with Dr.: Other (Dr Covington) Will see patient in: hospital (observation) Counseled pt/family regarding: lab results, diagnosis, need for follow-up Medical Desision Making - Discussion of managment Care discussed with:: hospitalist Reviewed:: Test results Agreed on:: place in obs Will see patient: in hospital - Diagnostic Testing Diagnostic test were ordered, analyzed, and reviewed by me: Yes Radiological Interpretation: Interpreted by me - Risk of complications The pt has a mod risk of morbidity or mortality based on: Need for prescription drug management - Departure Departure Disposition: Observation Clinical Impression: Angioedema Qualifiers: Encounter type: initial encounter Qualified Code(s): T78.3XXA - Angioneurotic edema, initial encounter Condition: Stable Critical Care Time: Yes Critical Care Time(excluding separately billable procedures): Critical 30-74 mins Referrals: ЕЛЕНА DOVER [Primary Care Provider] - Follow up/PCP as directed
[2023-09-27] MEDS: Sodium Chloride 0.9% 1000 ML 1,000 ML IV SCH (15:50)
[2023-09-27 16:48] LABS: ALBUMIN 4.5 g/dL (3.5-5.0); ANION GAP 15.4 MEQ/L (5-15); BILIRUBIN,TOTAL 0.9 mg/dL (0.2-1.3); Calcium 9.6 mg/dL (8.4-10.2); Creatinine 1 1.31 mg/dL (0.66-1.25); EST GLOMERULAR FILTRATION RATE 62.3 ML/MIN; Potassium 4.3 mmol/L (3.5-5.1); Total Protein 7.3 g/dL (6.3-8.2)
[2023-09-27 17:02] LABS: Absolute Neutrophil Ct (ANC) 10.85 x10^3/uL (1.4-6.9); BASOPHIL % 0.3 % (0.0-0.4); Basophil (Absolute #) 0.05 x10^3/uL (0-0.4); Eosinophil % 1.9 % (0.00-5.0); Eosinophil (Absolute #) 0.27 x10^3/uL (0-0.5); Hematocrit 44.9 % (42-50); Hemoglobin 14.6 g/dL (12.5-18.0); IMMATURE GRAN # 0.04 x10^3u/L (0.00-0.03); IMMATURE GRAN % 0.3 % (0.00-0.4); Lymphocyte (Absolute #) 2.62 x10^3/uL (1.0-4.6); Mean Cell Volume 91.1 fL (78-100); Mean Corpuscular Hemoglobin 29.6 pg (26-32); Mean Corpuscular Hgb Concent. 32.5 g/dL (32-36); Mean Platelet Volume 9.3 fL (7.5-11.0); Monocyte (Absolute #) 0.69 x10^3/uL (0.0-1.3); Monocytes % 4.8 % (0.0-12.0); Neutrophil % 74.7 % (36.0-66.0); Platelet Count 282 x10^3/uL (150-450); Red Blood Count 4.93 x10^6/uL (4.1-5.6); Red Cell Distribution Width 12.9 % (11.5-14.0); White Blood Count 14.5 x10^3/uL (4.0-10.5)
[2023-09-27] MEDS ORDERED: Nicoderm CQ 21 MG TOP ONE (18:17)
[2023-09-27] MEDS ORDERED: PROVENTIL 2.5 MG/3 ML NEB IH PRN (19:17)
[2023-09-27] MEDS ORDERED: TYLENOL 325 MG PO PRN (19:19)
[2023-09-27] MEDS ORDERED: PHENERGAN 25 MG PO PRN (19:19)
[2023-09-27] MEDS ORDERED: BENADRYL 50 MG/ML IV PRN (19:21)
--- NOTE | 2023-09-27 19:28 | PCM.HP ---
History of Present Illness - Chief Complaint Chief Complaint: Angioedema History of Present Illness: is a 58 year old male with hx of asthma and HTN came in today with c/o SOB, wheezing, lips swelling 2 hrs prior. Got treatments in EMS on way over to ER - benadryl, epi and albuterol and has since improved with some residual chest pain, lips pain. He said he had similar episode 3 weeks prior which resolved with same treatment. Denies any recent new meds. Unsure of any food allergies. He has been on Losartan since May 2023 No nausea, vomiting, diarrhea, fever, chills, sputum, headache, vision change, syncope - Review of Systems Constitutional: No Symptoms Eyes: No Symptoms Ears, Nose, & Throat: Other (Lip swelling) Respiratory: Short Of Breath, Wheezing Cardiac: Chest Pain Abdominal/Gastrointestinal: No Symptoms Genitourinary Symptoms: No Symptoms Musculoskeletal: No Symptoms Skin: No Symptoms Neurological: No Symptoms Psychological: No Symptoms Endocrine: No Symptoms Hematologic/Lymphatic: No Symptoms Immunological/Allergic: Other (Had lip swelling 3 weeks prior as well) Medications & Allergies Home Medications: Home Medication List Albuterol Sulfate 3 ml IH Q6H PRN PRN 05/24/23 [History Confirmed 09/27/23] Albuterol Sulfate [Proair Respiclick] 2 puff IH Q6H PRN PRN 05/24/23 [History Confirmed 09/27/23] Losartan Potassium 50 mg PO DAILY 09/16/23 [History Confirmed 09/27/23] Metoprolol Succinate 50 mg [Toprol Xl 50 MG] 50 mg PO BID 09/16/23 [History Confirmed 09/27/23] Umeclidinium Brm/Vilanterol Tr [Anoro Ellipta 62.5-25 Mcg INH] 1 each IH UD 09/27/23 [History Confirmed 09/27/23] Allergies/Adverse Reactions: Allergies Allergy/AdvReac Type Severity Reaction Status Date / Time codeine Allergy Intermediate Hives Verified 09/27/23 15:30 - Past Medical History Past Medical History: Yes Neurological History: No Pertinent History ENT History: No Pertinent History Cardiac History: Hypertension Respiratory History: Asthma Endocrine Medical History: No Pertinent History Musculoskelatal History: Other GI Medical History: Hepatitis History: No Pertinent History Pyscho-Social History: No Pertinent History Male Reproductive Disorders: No Pertinent History Comment: mrsa/ Hep C, sciatica - Past Surgical History Past Surgical History: Yes Neuro Surgical History: No Pertinent History Cardiac History: No Pertinent History Respiratory Surgery: No Pertinent History GI Surgical History: No Pertinent History Genitourinary Surgical Hx: No Pertinent History Musculskeletal Surgical Hx: No Pertinent History Male Surgical History: No Pertinent History Other Surgical History: drainage tube in head, left eye, right chin - Social History Smoking Status: Current some day smoker How long have you smoked: 13yo Exposure to second hand smoke: Yes Alcohol: Rarely Drug Use: none Significant Family History: no pertinent family hx - Physical Exam Vital Signs: Vital Signs - 24 hr Temp Pulse Resp BP BP Pulse Ox 09/27/23 19:01 70 17 151/75 99 09/27/23 18:28 100 09/27/23 18:01 70 22 166/105 09/27/23 17:31 65 19 158/81 09/27/23 17:01 63 20 115/87 93 L 09/27/23 16:31 63 18 170/82 98 09/27/23 16:30 61 19 99 09/27/23 16:20 62 18 99 09/27/23 16:10 60 16 99 09/27/23 16:00 60 21 98 09/27/23 15:50 59 L 15 100 09/27/23 15:40 62 22 100 09/27/23 15:33 59 L 24 09/27/23 15:30 100 09/27/23 15:24 60 16 145/89 09/27/23 15:07 97.0 F 65 20 194/90 100 09/27/23 15:06 62 24 194/90 General Appearance: no apparent distress, alert Neurologic Exam: alert, oriented x 3, cooperative, normal mood/affect Eye Exam: PERRL/EOMI, eyes nml inspection Ears, Nose, Throat Exam: normal ENT inspection, moist mucous membranes Neck Exam: normal inspection, non-tender, supple, full range of motion Respiratory Exam: normal breath sounds, lungs clear, airway intact Cardiovascular Exam: regular rate/rhythm, normal heart sounds, normal peripheral pulses Gastrointestinal/Abdomen Exam: soft, normal bowel sounds Rectal Exam: deferred Back Exam: normal inspection Extremity Exam: normal inspection Skin Exam: normal color, warm, dry Results - Labs Lab/Micro Results: Lab Results-Last 24 Hours 09/27/23 09/27/23 09/27/23 Range/Units 16:00 16:30 16:40 WBC 14.5 H (4.0-10.5) x10^3/uL RBC 4.93 (4.1-5.6) x10^6/uL Hgb 14.6 (12.5-18.0) g/dL Hct 44.9 (42-50) % MCV 91.1 (78-100) fL MCH 29.6 (26-32) pg MCHC 32.5 (32-36) g/dL RDW 12.9 (11.5-14.0) % Plt Count 282 (150-450) x10^3/uL MPV 9.3 (7.5-11.0) fL Gran % 74.7 H (36.0-66.0) % Immature Gran % (Auto) 0.3 (0.00-0.4) % Nucleat RBC Rel Count 0.0 (0.00-0.1) % Eos # (Auto) 0.27 (0-0.5) x10^3/uL Immature Gran # (Auto) 0.04 H (0.00-0.03) x10^3u/L Absolute Lymphs (auto) 2.62 (1.0-4.6) x10^3/uL Absolute Monos (auto) 0.69 (0.0-1.3) x10^3/uL Absolute Nucleated RBC 0.00 (0.00-0.01) x10^3u/L Lymphocytes % 18.0 L (24.0-44.0) % Monocytes % 4.8 (0.0-12.0) % Eosinophils % 1.9 (0.00-5.0) % Basophils % 0.3 (0.0-0.4) % Absolute Granulocytes 10.85 H (1.4-6.9) x10^3/uL Basophils # 0.05 (0-0.4) x10^3/uL Sodium 133 L (137-145) mmol/L Potassium 4.3 (3.5-5.1) mmol/L Chloride 107 (98-107) mmol/L Carbon Dioxide 16 L* (22-30) mmol/L Anion Gap 15.4 H (5-15) MEQ/L BUN 34 H (9-20) mg/dL Creatinine 1.31 H (0.66-1.25) mg/dL Estimated GFR 62.3 ML/MIN Glucose 99 (74-106) mg/dL Calcium 9.6 (8.4-10.2) mg/dL Total Bilirubin 0.90 (0.2-1.3) mg/dL AST 23 (17-59) U/L ALT 14 (0-50) U/L Alkaline Phosphatase 65 (38-126) U/L Troponin I < 0.012 (0.000-0.034) ng/mL Serum Total Protein 7.3 (6.3-8.2) g/dL Albumin 4.5 (3.5-5.0) g/dL - Radiology Impressions Radiology Exams & Impressions: Radiology Procedures Category Date Time Status CHEST 1 VIEW (PORTABLE) Stat Exams 09/27/23 15:19 Taken Assessment/Plan (1) Angioedema Current Visit: Yes Status: Acute Qualifiers: Encounter type: initial encounter Qualified Code(s): T78.3XXA - Angioneurotic edema, initial encounter Assessment & Plan: Responded to treatment. Unsure what is causing this. Would stop and avoid ACEI/ARB from now on given its propensity for angioedema. Prn benadryl, epi and steroid. Will monitor him overnight and if all is ok, home tomorrow Code(s): T78.3XXA - ANGIONEUROTIC EDEMA, INITIAL ENCOUNTER (2) OG (acute kidney injury) Current Visit: Yes Status: Acute Assessment & Plan: BUN 30s, Cr 1.31. NS at 100ml/hr, monitor and repeat chem in AM. Avoid NSAIDs, IV contrast and hypotension. Code(s): N17.9 - ACUTE KIDNEY FAILURE, UNSPECIFIED (3) Hyponatremia Current Visit: Yes Status: Acute Assessment & Plan: Na 133 - mildly low, NS should take care of this. Repeat chem in AM Code(s): E87.1 - HYPO-OSMOLALITY AND HYPONATREMIA (4) Essential (primary) hypertension Current Visit: Yes Status: Acute Assessment & Plan: Holding and avoiding ACEI/ARB given angioedema. Not sure if it is due to this, but it is well documented. Continue Metoprolol Code(s): I10 - ESSENTIAL (PRIMARY) HYPERTENSION (5) Asthma Current Visit: Yes Status: Acute Assessment & Plan: Continue albuterol updraft as needed Code(s): J45.909 - UNSPECIFIED ASTHMA, UNCOMPLICATED (6) Leukocytosis Current Visit: Yes Status: Acute Assessment & Plan: WBC 14.5 - no fever or sign of infection. likely a stress reaction. Monitor and repeat CBC tomorrow Code(s): D72.829 - ELEVATED WHITE BLOOD CELL COUNT, UNSPECIFIED Telemedicine Encounter - Telemedicine Encounter Telemedicine Encounter: The entirety of this encounter was performed via Telemedicine" Pt gave me verbal consent to have this telemedicine visit
--- NOTE | 2023-09-27 20:17 | XRAY ---
Indication: Wheezing. Comparison: November 15, 2021 Portable chest unchanged again demonstrating CT proven pulmonary emphysema and bilateral paramediastinal subsegmental atelectasis/scarring. No focal infiltrate, consolidation, or large effusion. Heart not enlarged again with left hilar calcified nodes. Bony thorax intact again with osteopenia, degenerative changes, and minimal scoliosis. Impression: Continued nonacute chest with chronic features.
[2023-09-27] MEDS ORDERED: Toprol Xl 50 MG PO SCH (22:00)
[2023-09-27] MEDS: Lopressor 50 MG PO SCH (22:33)
[2023-09-28] MEDS: Sodium Chloride 0.9% 1000 ML 1,000 ML IV SCH (02:06)
[2023-09-28 07:44] LABS: Hematocrit 42.6 % (42-50); Hemoglobin 13.4 g/dL (12.5-18.0); Mean Corpuscular Hemoglobin 29.6 pg (26-32); Mean Corpuscular Hgb Concent. 31.5 g/dL (32-36); Mean Platelet Volume 9.6 fL (7.5-11.0); Platelet Count 258 x10^3/uL (150-450); Red Blood Count 4.53 x10^6/uL (4.1-5.6); Red Cell Distribution Width 13.3 % (11.5-14.0); White Blood Count 9.5 x10^3/uL (4.0-10.5)
[2023-09-28] MEDS ORDERED: VENTOLIN COMMON CANISTER IH PRN (07:44)
[2023-09-28] MEDS ORDERED: MEDICATION INTERVENTION MC SCH (07:45)
[2023-09-28 07:57] LABS: ANION GAP 10.6 MEQ/L (5-15); Calcium 9.4 mg/dL (8.4-10.2); Creatinine 1 0.75 mg/dL (0.66-1.25); EST GLOMERULAR FILTRATION RATE 103.3 ML/MIN; Potassium 4.6 mmol/L (3.5-5.1)
--- NOTE | 2023-09-28 08:27 | PCM.DS ---
Discharge Summary Date of Admission: 09/27/23 19:33 Date of Discharge: 09/28/23 Admitting Physician: BRITTA LOPEZ DO Primary Care Provider: ЕЛЕНА DOVER Allergies Allergies codeine Allergy (Severe, Verified 09/27/23 20:26) Hives losartan Allergy (Severe, Verified 09/27/23 20:28) Swelling of Tongue and Lips Hospital Summary - Hospital Course Hospital Course: is a 58 year old male with hx of asthma and HTN. He came in to ED on 09/27/23 with c/o SOB, wheezing, lips swelling 2 hrs prior. Got treatments by EMS on way over to ER with Benadryl, epi and albuterol. He improved with some residual chest pain, lips pain. He said he had similar episode 3 weeks prior which resolved with IBP. Denies any recent new meds. Unsure of any food allergies. He has been on Losartan since May 2023. This medication was stopped and added to allergy med. Discussed not to take and KAROLYN or ARB meds OP due to allergy. BP is stable without this medication. He reports he was unable to eat yesterday and has associated n/v due to angioedmea. On admission he had some OG but this has resolved with IV fluids overnight. He denies CP, SOB, abd. pain, N/V/D. He is wanting to go home today. - Vitals & Intake/Output Vital Signs: Vital Signs Temperature 97.1 F 09/28/23 06:41 Pulse Rate 63 09/28/23 07:35 Respiratory Rate 18 09/28/23 07:35 Blood Pressure 135/67 09/28/23 06:41 O2 Sat by Pulse Oximetry 97 09/28/23 07:35 Intake & Output: Intake & Output 09/25/23 09/26/23 09/27/23 09/28/23 11:59 11:59 11:59 11:59 Intake Total 1428 Output Total 1450 Balance -22 Weight 81.7 kg - Lab Result Diagrams: 09/28/23 07:35 09/28/23 07:35 Lab Results-Last 24 Hrs: Lab Results-Last 24 Hours 09/27/23 09/27/23 09/27/23 Range/Units 16:00 16:30 16:40 WBC 14.5 H (4.0-10.5) x10^3/uL RBC 4.93 (4.1-5.6) x10^6/uL Hgb 14.6 (12.5-18.0) g/dL Hct 44.9 (42-50) % MCV 91.1 (78-100) fL MCH 29.6 (26-32) pg MCHC 32.5 (32-36) g/dL RDW 12.9 (11.5-14.0) % Plt Count 282 (150-450) x10^3/uL MPV 9.3 (7.5-11.0) fL Gran % 74.7 H (36.0-66.0) % Immature Gran % (Auto) 0.3 (0.00-0.4) % Nucleat RBC Rel Count 0.0 (0.00-0.1) % Eos # (Auto) 0.27 (0-0.5) x10^3/uL Immature Gran # (Auto) 0.04 H (0.00-0.03) x10^3u/L Absolute Lymphs (auto) 2.62 (1.0-4.6) x10^3/uL Absolute Monos (auto) 0.69 (0.0-1.3) x10^3/uL Absolute Nucleated RBC 0.00 (0.00-0.01) x10^3u/L Lymphocytes % 18.0 L (24.0-44.0) % Monocytes % 4.8 (0.0-12.0) % Eosinophils % 1.9 (0.00-5.0) % Basophils % 0.3 (0.0-0.4) % Absolute Granulocytes 10.85 H (1.4-6.9) x10^3/uL Basophils # 0.05 (0-0.4) x10^3/uL Sodium 133 L (137-145) mmol/L Potassium 4.3 (3.5-5.1) mmol/L Chloride 107 (98-107) mmol/L Carbon Dioxide 16 L* (22-30) mmol/L Anion Gap 15.4 H (5-15) MEQ/L BUN 34 H (9-20) mg/dL Creatinine 1.31 H (0.66-1.25) mg/dL Estimated GFR 62.3 ML/MIN Glucose 99 (74-106) mg/dL Calcium 9.6 (8.4-10.2) mg/dL Total Bilirubin 0.90 (0.2-1.3) mg/dL AST 23 (17-59) U/L ALT 14 (0-50) U/L Alkaline Phosphatase 65 (38-126) U/L Troponin I < 0.012 (0.000-0.034) ng/mL Serum Total Protein 7.3 (6.3-8.2) g/dL Albumin 4.5 (3.5-5.0) g/dL 09/28/23 09/28/23 Range/Units 07:35 07:35 WBC 9.5 (4.0-10.5) x10^3/uL RBC 4.53 (4.1-5.6) x10^6/uL Hgb 13.4 (12.5-18.0) g/dL Hct 42.6 (42-50) % MCV 94.0 (78-100) fL MCH 29.6 (26-32) pg MCHC 31.5 L (32-36) g/dL RDW 13.3 (11.5-14.0) % Plt Count 258 (150-450) x10^3/uL MPV 9.6 (7.5-11.0) fL Gran % (36.0-66.0) % Immature Gran % (Auto) (0.00-0.4) % Nucleat RBC Rel Count (0.00-0.1) % Eos # (Auto) (0-0.5) x10^3/uL Immature Gran # (Auto) (0.00-0.03) x10^3u/L Absolute Lymphs (auto) (1.0-4.6) x10^3/uL Absolute Monos (auto) (0.0-1.3) x10^3/uL Absolute Nucleated RBC (0.00-0.01) x10^3u/L Lymphocytes % (24.0-44.0) % Monocytes % (0.0-12.0) % Eosinophils % (0.00-5.0) % Basophils % (0.0-0.4) % Absolute Granulocytes (1.4-6.9) x10^3/uL Basophils # (0-0.4) x10^3/uL Sodium 133 L (137-145) mmol/L Potassium 4.6 (3.5-5.1) mmol/L Chloride 110 H (98-107) mmol/L Carbon Dioxide 17 L (22-30) mmol/L Anion Gap 10.6 (5-15) MEQ/L BUN 17 (9-20) mg/dL Creatinine 0.75 (0.66-1.25) mg/dL Estimated GFR 103.3 ML/MIN Glucose 130 H (74-106) mg/dL Calcium 9.4 (8.4-10.2) mg/dL Total Bilirubin (0.2-1.3) mg/dL AST (17-59) U/L ALT (0-50) U/L Alkaline Phosphatase (38-126) U/L Troponin I (0.000-0.034) ng/mL Serum Total Protein (6.3-8.2) g/dL Albumin (3.5-5.0) g/dL - Radiology Exams Ordered Rad Exams-Entire Visit: Radiology Procedures Category Date Time Status CHEST 1 VIEW (PORTABLE) Stat Exams 09/27/23 15:19 Completed - Procedures and Test Procedures and Tests throughout Hospitalization: Therapy Orders & Screens 09/27/23 20:27 Respiratory Therapy Assessment DAILY Comment: Diagnosis: Angioedema 09/27/23 21:10 Smoking Cessation Education ONCE Comment: Diagnosis: Angioedema Smoking Status: Current every day smoker How long have you smoked: 13yo Have you smoked in the past 12 months: Yes Do you dip or chew tobacco: No Discharge Exam General Appearance: no apparent distress, alert Neurologic Exam: alert, oriented x 3, cooperative, normal mood/affect, nml cerebellar function, sensation nml, No motor deficits Eye Exam: PERRL, EOMI, eyes nml inspection Ears, Nose, Throat Exam: normal ENT inspection, pharynx normal, moist mucous me mbranes Neck Exam: normal inspection, non-tender, supple, full range of motion Respiratory Exam: normal breath sounds, lungs clear, wheezing, No respiratory distress Cardiovascular Exam: regular rate/rhythm, normal heart sounds Gastrointestinal/Abdomen Exam: soft, No tenderness, No mass Male Genitalia Exam: deferred Rectal Exam: deferred Back Exam: normal inspection, normal range of motion, No CVA tenderness, No vertebral tenderness Extremity Exam: normal inspection, normal range of motion Skin Exam: normal color, warm, dry Final Diagnosis/Problem List - Final Discharge Diagnosis/Problem (1) Angioedema Current Visit: Yes Status: Resolved Assessment & Plan: - resolved - Discontinued losartan and added to allergy list. - Do not take KAROLYN/ ARB OP - F/U with PCP this week - will need repeat labs - F/U with cardiology as scheduled Code(s): T78.3XXA - ANGIONEUROTIC EDEMA, INITIAL ENCOUNTER (2) OG (acute kidney injury) Current Visit: Yes Status: Resolved Assessment & Plan: - resolved Code(s): N17.9 - ACUTE KIDNEY FAILURE, UNSPECIFIED (3) Essential (primary) hypertension Current Visit: Yes Status: Acute Assessment & Plan: - BP stable - Continue Beta clemente - F/u with [facility] as scheduled Code(s): I10 - ESSENTIAL (PRIMARY) HYPERTENSION (4) Smoker Current Visit: Yes Status: Acute Assessment & Plan: - advised cessation - pt is trying to quit, Code(s): F17.200 - NICOTINE DEPENDENCE, UNSPECIFIED, UNCOMPLICATED - Discharge Discharge Date: 09/28/23 Disposition: Home, Self-Care Condition: Stable Prescriptions: Continue Albuterol Sulfate 3 ml IH Q6H PRN PRN PRN Reason: Shortness Of Breath/Wheezing Albuterol Sulfate [Proair Respiclick] 2 puff IH Q6H PRN PRN PRN Reason: Shortness Of Breath/Wheezing Umeclidinium Brm/Vilanterol Tr [Anoro Ellipta 62.5-25 Mcg INH] 1 each IH DAILY Metoprolol Tartrate 50 mg [Lopressor 50 MG] 50 mg PO BID Instructions: Angioedema (DC) Follow up with: ЕЛЕНА DOVER [Primary Care Provider] - Call for Appointment (Call Friday09/29/2023 for a 1 week follow-up appointment. )
[2023-09-28] MEDS: Lopressor 50 MG PO SCH (08:59)
[2023-09-28] MEDS ORDERED: ENOXAPARIN SODIUM SQ SCH (10:00)
[2023-09-28 11:26] VITALS: BP 118/85; TEMP 97.5; O2SAT 99
[2023-09-28 12:11] VITALS: PULSE 72; RESP 18
== END 2023-09-28 13:05 | disposition home or self-care (01) ==
LOC: ED 15:04 → MED SURG 19:33
PROVIDERS: ADMIT Internal Medicine; ATTEND Internal Medicine
DX: T78.3XXA Angioneurotic edema, initial encounter (principal); N17.9 Acute kidney failure, unspecified; I10 Essential (primary) hypertension; F17.200 Nicotine dependence, unspecified, uncomplicated; J45.909 Unspecified asthma, uncomplicated; D72.829 Elevated white blood cell count, unspecified; Z79.899 Other long term (current) drug therapy; Z20.828 Contact with and (suspected) exposure to other viral communicable diseases
CPT/HCPCS: 36000; 36415; 71045; 80048; 80053; 84484; 85025; 85027; 93005; 93268; 94640; 94760; 96374; 96375; 99284; 99291; G0378; Q3014; J1650; J2930; J7609; J7614; A9270-GY

== ENCOUNTER 2023-10-31 12:28 | Emergency (ER) | payer OTHER ==
[2023-10-31 12:42] VITALS: TEMP 96.1
[2023-10-31] MEDS ORDERED: solu-MEDROL ONE (12:47)
[2023-10-31] MEDS ORDERED: Sterile H2O 10 ml IJ ONE (12:47)
[2023-10-31] MEDS ORDERED: Sodium Chloride 0.9% 1000 ML 1,000 ML ONE (12:47)
[2023-10-31] MEDS ORDERED: BENADRYL 50 MG/ML ONE ×2 (12:47→14:09)
--- NOTE | 2023-10-31 12:47 | ERPHSYRPT ---
- History of Present Illness Time Seen by Provider: 10/31/23 12:35 Source: patient Exam Limitations: no limitations Physician History: About 3 hours ago after pt took a trelegy inhaler inhalation pt's lower lip started to swell; denies chest pain, shortness of air, fever, headache. Allergies/Adverse Reactions: codeine Allergy (Severe, Verified 09/27/23 20:26) Hives lisinopril Allergy (Severe, Verified 10/31/23 12:43) angioedema losartan Allergy (Severe, Verified 09/27/23 20:28) Swelling of Tongue and Lips Home Medications: Albuterol Sulfate 3 ml IH Q6H PRN PRN 05/24/23 [History] Albuterol Sulfate [Proair Respiclick] 2 puff IH Q6H PRN PRN 05/24/23 [History] Metoprolol Tartrate 50 mg [Lopressor 50 MG] 50 mg PO BID 09/27/23 [History] Umeclidinium Brm/Vilanterol Tr [Anoro Ellipta 62.5-25 Mcg INH] 1 each IH DAILY 09/27/23 [History] Hx Tetanus, Diphtheria Vaccination/Date Given: Yes (2 yrs ago) Hx Influenza Vaccination/Date Given: Yes Hx Pneumococcal Vaccination/Date Given: No Travel Risk - Vaccine Status Have you recieved a Covid-19 vaccination: No - Review of Systems Constitutional: No Fever Ears, Nose, & Throat: Mouth Swelling (lower lip) Respiratory: Wheezing (ongoing), No Dyspnea Cardiac: No Chest Pain Abdominal/Gastrointestinal: No Abdominal Pain, No Nausea, No Vomiting, No Diarrhea Neurological: No Headache - Past Medical History Pertinent Past Medical History: Yes Neurological History: No Pertinent History ENT History: No Pertinent History Cardiac History: Hypertension Respiratory History: Asthma Endocrine Medical History: No Pertinent History Musculoskeletal History: Other GI Medical History: Hepatitis History: No Pertinent History Psycho-Social History: No Pertinent History Male Reproductive Disorders: No Pertinent History Other Medical History: mrsa/ Hep C, sciatica - Past Surgical History Past Surgical History: Yes Neuro Surgical History: No Pertinent History Cardiac: No Pertinent History Respiratory: No Pertinent History Gastrointestinal: No Pertinent History Genitourinary: No Pertinent History Musculoskeletal: No Pertinent History Male Surgical History: No Pertinent History Other Surgical History: drainage tube in head, left eye, right chin - Social History Smoking Status: Current every day smoker How long have you smoked: 13yo Exposure to second hand smoke: Yes Alcohol Use: Socially Drug Use: none Patient Lives Alone: No Significant Family History: no pertinent family hx - Nursing Vital Signs Nursing Vital Signs: Initial Vital Signs Temperature 96.1 F 10/31/23 12:34 Pulse Rate 69 10/31/23 12:34 Respiratory Rate 22 10/31/23 12:34 Blood Pressure 97/71 10/31/23 12:34 O2 Sat by Pulse Oximetry 99 10/31/23 12:34 Pain Scale Pain Intensity 0 - Physical Exam General Appearance: alert Eye Exam: PERRL/EOMI Ears, Nose, Throat Exam: TMs normal, pharynx normal, moist mucous membranes, other (lower lip edematous) Neck Exam: normal inspection Respiratory Exam: wheezing (expiratory - mild) Cardiovascular Exam: normal heart sounds Gastrointestinal/Abdomen Exam: soft, normal bowel sounds Neurologic Exam: alert, cooperative Skin Exam: warm, dry Ordered Tests: Active Orders 24 hr Category Date Time Status IV Insertion STAT Care 10/31/23 12:42 Completed Medication Summary Generic Name Dose Route Start Last Admin Trade Name Freq PRN Reason Stop Dose Admin Sodium Chloride 1,000 mls @ 100 mls/hr 10/31/23 12:45 10/31/23 13:06 Sodium Chloride 0.9% 1000 Ml IV 11/30/23 12:44 100 mls/hr .Q10H MALICK Administration Discontinued Medications Generic Name Dose Route Start Last Admin Trade Name Freq PRN Reason Stop Dose Admin Albuterol Sulfate 2.5 mg 10/31/23 12:42 10/31/23 12:54 Albuterol Sulfate 2.5 Mg/3 Ml Neb IH 10/31/23 12:43 2.5 mg STAT ONE Administration Albuterol Sulfate Confirm 10/31/23 12:52 Albuterol Sulfate 2.5 Mg/3 Ml Neb Administered 10/31/23 12:53 Dose 2.5 mg IH .STK-MED ONE Methylprednisolone Sodium 0 mg 10/31/23 12:42 10/31/23 13:05 Succinate 125 mg/ Sterile IV 10/31/23 12:43 125 mg Water 2 ml STAT ONE Administration Diphenhydramine HCl 25 mg 10/31/23 12:42 10/31/23 13:05 Diphenhydramine Hcl 50 Mg/Ml Vial IV 10/31/23 12:43 25 mg STAT ONE Administration Diphenhydramine HCl Confirm 10/31/23 12:47 Diphenhydramine Hcl 50 Mg/Ml Vial Administered 10/31/23 12:48 Dose 50 mg .ROUTE .STK-MED ONE Diphenhydramine HCl 25 mg 10/31/23 14:00 10/31/23 14:11 Diphenhydramine Hcl 50 Mg/Ml Vial IV 10/31/23 14:01 25 mg STAT ONE Administration Diphenhydramine HCl Confirm 10/31/23 14:09 Diphenhydramine Hcl 50 Mg/Ml Vial Administered 10/31/23 14:10 Dose 50 mg .ROUTE .STK-MED ONE Epinephrine HCl 0.2 mg 10/31/23 14:06 10/31/23 14:11 Epinephrine 1 Mg/1 Ml Pf Amp 1 Mg/Ml Ml SQ 10/31/23 14:07 0.2 mg STAT ONE Administration Epinephrine HCl Confirm 10/31/23 14:10 Epinephrine 1 Mg/1 Ml Pf Amp 1 Mg/Ml Ml Administered 10/31/23 14:11 Dose 1 mg .ROUTE .STK-MED ONE Methylprednisolone Sodium Succinate Confirm 10/31/23 12:47 Methylprednis Sod Succ 125 Mg/2 Ml Vial Administered 10/31/23 12:48 Dose 125 mg .ROUTE .STK-MED ONE Sterile Water Confirm 10/31/23 12:47 Water For Injection,Sterile 10 Ml Vial Administered 10/31/23 12:48 Dose 10 ml IJ .STK-MED ONE - Progress Progress: improved Progress Note: 10/31/23 16:51 Pt examined @1645: lower lip less edematous & pt states he feels better. Counseled pt/family regarding: diagnosis, need for follow-up - Departure Departure Disposition: Home Clinical Impression: Angioedema secondary to trelegy Condition: Stable Critical Care Time: No Referrals: ЕЛЕНА DOVER [Primary Care Provider] - Follow up/PCP as directed Instructions: Adverse Drug Reactions, Adult (DC), Angioedema (DC) Additional Instructions: Do not take trelegy. Follow up with private doctor tomorrow. Prescriptions: Hydroxyzine HCl 25 mg [Atarax 25 mg] 25 mg PO Q4H PRN PRN #30 tablet PRN Reason: Allergies Methylprednisolone Packet [Medrol Dosepack] 4 mg PO UD #30 packet
[2023-10-31] MEDS ORDERED: PROVENTIL 2.5 MG/3 ML NEB IH ONE (12:52)
[2023-10-31] MEDS: PROVENTIL 2.5 MG/3 ML NEB IH ONE (12:54)
[2023-10-31] MEDS: solu-MEDROL 125 MG, Sterile H2O 10 ml 2 ML IV ONE (13:05)
[2023-10-31] MEDS: BENADRYL 50 MG/ML IV ONE ×2 (13:05→14:11)
[2023-10-31] MEDS: Sodium Chloride 0.9% 1000 ML 1,000 ML IV SCH (13:06)
[2023-10-31] MEDS ORDERED: Epinephrine Preservative Free 1 MG/ML ONE (14:10)
[2023-10-31] MEDS: Epinephrine Preservative Free 1 MG/ML SQ ONE (14:11)
[2023-10-31 17:08] VITALS: BP 122/70; PULSE 75; RESP 17; O2SAT 96
== END 2023-10-31 17:22 | disposition home or self-care (01) ==
LOC: ED 12:28
DX: T78.3XXA Angioneurotic edema, initial encounter (principal); T50.995A Adverse effect of other drugs, medicaments and biological substances, initial encounter; I10 Essential (primary) hypertension; Z79.899 Other long term (current) drug therapy; Z79.52 Long term (current) use of systemic steroids; Z28.310 Unvaccinated for COVID-19; Z72.0 Tobacco use
CPT/HCPCS: 36000; 94640; 96372; 96374; 96375; 96376; 99284; J0171; J1200; J2930; J7609; A9270-GY

== ENCOUNTER 2023-12-27 20:32 | Emergency (ER) | payer BC, OTHER ==
[2023-12-27 20:58] VITALS: TEMP 97.8
[2023-12-27 21:02] VITALS: RESP 18
[2023-12-27] MEDS ORDERED: XYLOCAINE 1% HCL 20 ML MDV ONE (21:06)
[2023-12-27] MEDS: XYLOCAINE 1% HCL 20 ML MDV IJ ONE (21:11)
--- NOTE | 2023-12-27 21:30 | ERPHSYRPT ---
- History of Present Illness Time Seen by Provider: 12/27/23 21:00 Source: patient Exam Limitations: no limitations Patient Subjective Stated Complaint: pt reports that he was mushroom hunting 2 days ago and had "ticks all over me". states that there are 2 placed on back of neck that he thinks might still have part or all of a tick under the skin. Triage Nursing Assessment: pt ambulated into room 8 independently with slow steady gait after standing on scale for weight acquisition. pt is alert and oriented times three, able to move all extremities, able to speak in complete sentences, and with resp even and unlabored. denies garcía, sob, difficulty breathing, lightheadedness, dizziness, chest pain, n/v, fever, cough, chills, or other ill feelings. Physician History: 58yo m presents for abscess of skin on the back of his head. Pt reports he noticed it today after mushroom hunting in the [facility], states he had several ticks on his body that he was able to removed, is concerned that this bump is related to a tick bite. Pt states he is not sure if he had a tick there or if he had an infected hair. Pt denies any fevers, denies any GARCÍA, weakness, drainage from the area, denies vision changes, cp, soa. Timing/Duration: today Quality: painful Severity: mild Location: scalp Possible Causes: no cause identified Allergies/Adverse Reactions: codeine Allergy (Severe, Verified 12/27/23 20:41) Hives lisinopril Allergy (Severe, Verified 12/27/23 20:41) angioedema losartan Allergy (Severe, Verified 12/27/23 20:41) Swelling of Tongue and Lips Home Medications: Albuterol Sulfate 3 ml IH Q6H PRN PRN 05/24/23 [History] Albuterol Sulfate [Proair Respiclick] 2 puff IH Q6H PRN PRN 05/24/23 [History] Metoprolol Tartrate 50 mg [Lopressor 50 MG] 50 mg PO BID 09/27/23 [History] Hx Tetanus, Diphtheria Vaccination/Date Given: Yes (2 yrs ago) Hx Influenza Vaccination/Date Given: Yes Hx Pneumococcal Vaccination/Date Given: No Immunizations Up to Date: Yes Travel Risk - International Travel Have you traveled outside of the country in past 3 weeks: No - Emerging Infectious Disease Are you exhibiting symptoms associated with any current EIDs: No - Review of Systems Constitutional: No Fever, No Chills, No Lethargy, No Malaise Respiratory: No Symptoms Cardiac: No Symptoms Abdominal/Gastrointestinal: No Symptoms Skin: Other (possible abscess on posterior scalp) Neurological: No Symptoms - Past Medical History Pertinent Past Medical History: Yes Neurological History: Other ENT History: No Pertinent History Cardiac History: Hypertension Respiratory History: Asthma Endocrine Medical History: No Pertinent History Musculoskeletal History: Other GI Medical History: Hepatitis History: No Pertinent History Psycho-Social History: No Pertinent History Male Reproductive Disorders: No Pertinent History Other Medical History: mrsa/ Hep C, sciatica - Past Surgical History Past Surgical History: Yes Neuro Surgical History: No Pertinent History Cardiac: No Pertinent History Respiratory: No Pertinent History Gastrointestinal: No Pertinent History Genitourinary: No Pertinent History Musculoskeletal: No Pertinent History Male Surgical History: No Pertinent History Other Surgical History: drainage tube in head, left eye, right chin Significant Family History: no pertinent family hx - Social History Smoking Status: Current every day smoker How long have you smoked: 13yo Exposure to second hand smoke: Yes Alcohol Use: Socially Drug Use: none Patient Lives Alone: No - Nursing Vital Signs Nursing Vital Signs: Initial Vital Signs Temperature 97.8 F 12/27/23 20:44 Pulse Rate 84 12/27/23 20:44 Respiratory Rate 16 12/27/23 20:44 Blood Pressure 129/80 12/27/23 20:44 O2 Sat by Pulse Oximetry 99 12/27/23 20:44 Pain Scale Pain Intensity 10 - Physical Exam General Appearance: no apparent distress, alert Eye Exam: PERRL/EOMI, eyes nml inspection Neck Exam: normal inspection, non-tender, No meningismus Respiratory Exam: normal breath sounds, lungs clear, No chest tenderness, No respiratory distress Cardiovascular Exam: regular rate/rhythm, normal heart sounds Neurologic Exam: alert, oriented x 3, cooperative, normal mood/affect, nml station & gait, sensation nml Skin Exam: normal color, warm, dry, other (1cm erythematous region on right posterior lower scalp w/ area of central purulence, no evidence of tick remnants ) SpO2 Interpretation: normal SpO2: 97 O2 Delivery: Room Air Procedures - Incision and Drainage Time of Procedure: 21:15 Site: right side posterior scalp occipital region Anesthesia: 1% Lidocaine cc's of anesthesia: 2 Blade Size: 11 I & D Procedure: betadine prep, sterile drapes applied, culture obtained Results: small amount pus Ordered Tests: Active Orders 24 hr Category Date Time Status CULTURE,WOUND Stat Lab 12/27/23 21:25 Received Medication Summary Discontinued Medications Generic Name Dose Route Start Last Admin Trade Name Gaurav PRN Reason Stop Dose Admin Doxycycline Hyclate 100 mg 12/27/23 21:38 12/27/23 21:44 Doxycycline Hyclate 100 Mg Tablet PO 12/27/23 21:39 100 mg STAT ONE Administration Doxycycline Hyclate Confirm 12/27/23 21:39 Doxycycline Hyclate 100 Mg Tablet Administered 12/27/23 21:40 Dose 100 mg .ROUTE .STK-MED ONE Lidocaine HCl Confirm 12/27/23 21:06 Lidocaine Hcl 1% 20 Ml Mdv 20 Ml Ml Administered 12/27/23 21:07 Dose 5 ml .ROUTE .STK-MED ONE Lidocaine HCl 5 ml 12/27/23 21:09 12/27/23 21:11 Lidocaine Hcl 1% 20 Ml Mdv 20 Ml Ml IJ 12/27/23 21:10 5 ml STAT ONE Administration - Progress Progress: improved, pain not gone completely Progress Note: 12/27/23 21:28 I+D performed yielding small amount purulent fluid - cultured bandage applied instructed to keep wound clean/dry as possible no evidence of retained tick particulates, vitals stable while in ED likely folliculitis Medical Desision Making - Diagnostic Testing Diagnostic test were ordered, analyzed, and reviewed by me: No - Risk of complications Low Risk: Low risk of morbidity from additional dx testing or treatment - Departure Departure Disposition: Home Clinical Impression: Folliculitis Abscess of skin Qualifiers: Site of cutaneous abscess: head Qualified Code(s): L02.811 - Cutaneous abscess of head [any part, except face] Condition: Stable Critical Care Time: No Referrals: ЕЛЕНА DOVER [Primary Care Provider] - Follow up/PCP as directed Instructions: Bacterial Folliculitis (DC) Additional Instructions: plan to dc home no evidence of retained tick body parts doxycycline 100mg twice per day x 7d prescribed recommend close follow up w/ PCP Dr Dover this week return to ED if: develop fevers, develop muscle weakness, develop GARCÍA, develop blurry vision Prescriptions: Doxycycline Hyclate 100 mg [Vibramycin 100 MG] 100 mg PO BID 7 Days #14 tab
[2023-12-27] MEDS ORDERED: Vibramycin 100 MG ONE (21:39)
[2023-12-27] MEDS: Vibramycin 100 MG PO ONE (21:44)
[2023-12-27 22:02] VITALS: BP 121/64; PULSE 77; O2SAT 98
== END 2023-12-27 22:04 | disposition home or self-care (01) ==
LOC: ED 20:32
DX: L02.811 Cutaneous abscess of head [any part, except face] (principal); L73.9 Follicular disorder, unspecified; I10 Essential (primary) hypertension; Z79.899 Other long term (current) drug therapy; Z72.0 Tobacco use
CPT/HCPCS: 10060; 87070; 87077; 87186; 96372; 99283; A9270-GY

== ENCOUNTER 2024-01-21 13:07 | Observation (INO) | payer BC, OTHER ==
[2024-01-21] MEDS ORDERED: Sterile H2O 10 ml IJ ONE (13:24)
[2024-01-21] MEDS ORDERED: BENADRYL 50 MG/ML ONE ×2 (13:24→14:48)
--- NOTE | 2024-01-21 13:24 | ERPHSYRPT ---
- History of Present Illness Time Seen by Provider: 01/21/24 13:13 Source: patient Exam Limitations: no limitations Physician History: For the past 5 hours pt has had nausea; for the past hour swelling of his upper lip; chest pain, shortness of air, vomiting all denied. Allergies/Adverse Reactions: codeine Allergy (Severe, Verified 01/21/24 13:33) Hives lisinopril Allergy (Severe, Verified 01/21/24 13:33) angioedema losartan Allergy (Severe, Verified 01/21/24 13:33) Swelling of Tongue and Lips Home Medications: Albuterol Sulfate 3 ml IH Q6H PRN PRN 05/24/23 [History] Albuterol Sulfate [Proair Respiclick] 2 puff IH Q6H PRN PRN 05/24/23 [History] Metoprolol Tartrate 50 mg [Lopressor 50 MG] 50 mg PO BID 09/27/23 [History] Hx Tetanus, Diphtheria Vaccination/Date Given: Yes (2 yrs ago) Hx Influenza Vaccination/Date Given: Yes Hx Pneumococcal Vaccination/Date Given: No Travel Risk - Emerging Infectious Disease Are you exhibiting symptoms associated with any current EIDs: No - Review of Systems Constitutional: No Fever Ears, Nose, & Throat: Other (upper lip swelling) Respiratory: No Dyspnea Cardiac: No Chest Pain Abdominal/Gastrointestinal: Nausea, No Vomiting Neurological: No Headache - Past Medical History Pertinent Past Medical History: Yes Neurological History: Other ENT History: No Pertinent History Cardiac History: Hypertension Respiratory History: Asthma Endocrine Medical History: No Pertinent History Musculoskeletal History: Other GI Medical History: Hepatitis History: No Pertinent History Psycho-Social History: No Pertinent History Male Reproductive Disorders: No Pertinent History Other Medical History: mrsa/ Hep C, sciatica - Past Surgical History Past Surgical History: Yes Neuro Surgical History: No Pertinent History Cardiac: No Pertinent History Respiratory: No Pertinent History Gastrointestinal: No Pertinent History Genitourinary: No Pertinent History Musculoskeletal: No Pertinent History Male Surgical History: No Pertinent History Other Surgical History: drainage tube in head, left eye, right chin Significant Family History: no pertinent family hx - Social History Smoking Status: Current every day smoker How long have you smoked: 13yo Exposure to second hand smoke: Yes Alcohol Use: Socially Drug Use: none Patient Lives Alone: No - Nursing Vital Signs Nursing Vital Signs: Initial Vital Signs Temperature 96.4 F 01/21/24 13:23 Pulse Rate 160 H 01/21/24 13:23 Respiratory Rate 22 01/21/24 13:23 Blood Pressure 94/75 01/21/24 13:23 O2 Sat by Pulse Oximetry 96 01/21/24 13:23 Pain Scale Pain Intensity 3 - Physical Exam General Appearance: alert Eye Exam: PERRL/EOMI Ears, Nose, Throat Exam: pharynx normal, other (moderate upper lip edema; no pharyngeal edema.) Neck Exam: normal inspection Respiratory Exam: wheezing (expiratory - diffuse) Cardiovascular Exam: tachycardia Gastrointestinal/Abdomen Exam: normal bowel sounds Back Exam: normal inspection Neurologic Exam: alert, cooperative Skin Exam: warm, dry SpO2 Interpretation: normal SpO2: 96 O2 Delivery: Room Air - Course EKG Interpreted by Me: RATE (157), SVT, NORMAL AXIS, Other (QTc = 485) - Radiology Exams Chest X-ray Interpretation: Discussed w/ radiologist (Continued nonacute hyperinflated chest with chronic features.) Ordered Tests: Active Orders 24 hr Category Date Time Status EKG-ER Only STAT Care 01/21/24 13:20 Active IV Insertion STAT Care 01/21/24 13:20 Active Oxygen-ED Only Nasal Cannula 2 lpm Care 01/21/24 13:43 Active CHEST 1 VIEW (PORTABLE) Stat Exams 01/21/24 13:21 Completed AMYLASE Stat Lab 01/21/24 13:25 Completed CBC W DIFF Stat Lab 01/21/24 13:25 Completed CMP Stat Lab 01/21/24 13:25 Completed LIPASE Stat Lab 01/21/24 13:25 Completed MAGNESIUM Stat Lab 01/21/24 13:25 Completed TROPONIN Q4H Lab 01/21/24 13:25 Completed TROPONIN Q4H Lab 01/21/24 17:30 Ordered TROPONIN Q4H Lab 01/21/24 21:30 Ordered UA W/RFX UR CULTURE Stat Lab 01/21/24 13:21 Ordered Medication Summary Discontinued Medications Generic Name Dose Route Start Last Admin Trade Name Freq PRN Reason Stop Dose Admin Adenosine 6 mg 01/21/24 14:13 01/21/24 14:18 Adenosine 6 Mg/2 Ml Vial IV 01/21/24 14:14 6 mg STAT ONE Administration Adenosine Confirm 01/21/24 14:13 Adenosine 6 Mg/2 Ml Vial Administered 01/21/24 14:14 Dose 6 mg IV .STK-MED ONE Albuterol Sulfate 2.5 mg 01/21/24 15:15 01/21/24 15:27 Albuterol Sulfate 2.5 Mg/3 Ml Neb IH 01/21/24 15:16 2.5 mg STAT ONE Administration Albuterol Sulfate Confirm 01/21/24 15:24 Albuterol Sulfate 2.5 Mg/3 Ml Neb Administered 01/21/24 15:25 Dose 2.5 mg IH .STK-MED ONE Methylprednisolone Sodium 0 mg 01/21/24 13:22 01/21/24 13:26 Succinate 125 mg/ Sterile IV 01/21/24 13:23 125 mg Water 2 ml STAT ONE Administration Diphenhydramine HCl 25 mg 01/21/24 13:22 01/21/24 13:26 Diphenhydramine Hcl 50 Mg/Ml Vial IV 01/21/24 13:23 25 mg STAT ONE Administration Diphenhydramine HCl Confirm 01/21/24 13:24 Diphenhydramine Hcl 50 Mg/Ml Vial Administered 01/21/24 13:25 Dose 50 mg .ROUTE .STK-MED ONE Diphenhydramine HCl 50 mg 01/21/24 14:37 01/21/24 14:49 Diphenhydramine Hcl 50 Mg/Ml Vial IV 01/21/24 14:38 50 mg STAT ONE Administration Diphenhydramine HCl Confirm 01/21/24 14:48 Diphenhydramine Hcl 50 Mg/Ml Vial Administered 01/21/24 14:49 Dose 50 mg .ROUTE .STK-MED ONE Sodium Chloride 1,000 mls @ 999 mls/hr 01/21/24 13:20 01/21/24 14:27 Sodium Chloride 0.9% 1000 Ml IV 01/21/24 14:20 Infused .Q1H1M STA Infusion Sodium Chloride Confirm 01/21/24 13:25 Sodium Chloride 0.9% 1000 Ml Administered 01/21/24 13:26 Dose 1,000 mls @ ud .ROUTE .STK-MED ONE Sodium Chloride 1,000 mls @ 999 mls/hr 01/21/24 14:04 01/21/24 14:31 Sodium Chloride 0.9% 1000 Ml IV 01/21/24 15:04 999 mls/hr .Q1H1M STA Administration Sodium Chloride Confirm 01/21/24 14:29 Sodium Chloride 0.9% 1000 Ml Administered 01/21/24 14:30 Dose 1,000 mls @ ud .ROUTE .STK-MED ONE Methylprednisolone Sodium Succinate Confirm 01/21/24 13:25 Methylprednis Sod Succ 125 Mg/2 Ml Vial Administered 01/21/24 13:26 Dose 125 mg .ROUTE .STK-MED ONE Sterile Water Confirm 01/21/24 13:24 Water For Injection,Sterile 10 Ml Vial Administered 01/21/24 13:25 Dose 10 ml IJ .STK-MED ONE Lab/Rad Data: Laboratory Result Diagrams 01/21/24 13:25 01/21/24 13:25 Laboratory Results 01/21/24 01/21/24 01/21/24 Range/Units 13:25 13:25 13:25 WBC 12.1 H (4.0-10.5) x10^3/uL RBC 5.49 (4.1-5.6) x10^6/uL Hgb 16.2 (12.5-18.0) g/dL Hct 49.7 (42-50) % MCV 90.5 (78-100) fL MCH 29.5 (26-32) pg MCHC 32.6 (32-36) g/dL RDW 12.6 (11.5-14.0) % Plt Count 360 (150-450) x10^3/uL MPV 9.8 (7.5-11.0) fL Gran % 63.0 (36.0-66.0) % Immature Gran % (Auto) 0.2 (0.00-0.4) % Nucleat RBC Rel Count 0.0 (0.00-0.1) % Eos # (Auto) 0.10 (0-0.5) x10^3/uL Immature Gran # (Auto) 0.02 (0.00-0.03) x10^3u/L Absolute Lymphs (auto) 3.42 (1.0-4.6) x10^3/uL Absolute Monos (auto) 0.85 (0.0-1.3) x10^3/uL Absolute Nucleated RBC 0.00 (0.00-0.01) x10^3u/L Lymphocytes % 28.4 (24.0-44.0) % Monocytes % 7.1 (0.0-12.0) % Eosinophils % 0.8 (0.00-5.0) % Basophils % 0.5 (0.0-0.4) % Absolute Granulocytes 7.60 H (1.4-6.9) x10^3/uL Basophils # 0.06 (0-0.4) x10^3/uL Sodium 139 (135-145) mmol/L Potassium 3.8 (3.5-5.1) mmol/L Chloride 112 H (98-107) mmol/L Carbon Dioxide 23 (22-30) mmol/L Anion Gap 8.1 (5-15) MEQ/L BUN 28 H (9-20) mg/dL Creatinine 1.18 (0.66-1.25) mg/dL Estimated GFR 70.6 ML/MIN Glucose 130 H (74-106) mg/dL Calcium 9.0 (8.4-10.2) mg/dL Magnesium 1.7 (1.6-2.3) mg/dL Total Bilirubin 0.40 (0.2-1.3) mg/dL AST 22 (17-59) U/L ALT 21 (0-50) U/L Alkaline Phosphatase 56 (38-126) U/L Troponin I < 0.012 (0.000-0.033) ng/mL Serum Total Protein 6.4 (6.3-8.2) g/dL Albumin 3.7 (3.5-5.0) g/dL Amylase 57 (30-110) U/L Lipase 56 (23-300) U/L - Progress Progress: improved Progress Note: 01/21/24 14:32 EKG after adenosine at 1417: sinus rhythm, rate=72, QTc = 419, minimal ST depression in leads III & aVF. 01/21/24 15:13 Pt examined again: no pharyngeal edema, upper lip still edematous. Discussed with : Other (Spoke with & discussed pt with Dr. Clayton - obs) Counseled pt/family regarding: lab results, diagnosis, rad results Medical Desision Making - Diagnostic Testing Diagnostic test were ordered, analyzed, and reviewed by me: Yes Radiological Interpretation: Discussed w/ radiologist - Departure Departure Disposition: Observation Clinical Impression: SVT (supraventricular tachycardia), Angioedema of upper lip Condition: Stable Critical Care Time: No Referrals: ЕЛЕНА DOVER [Primary Care Provider] - Follow up/PCP as directed
[2024-01-21] MEDS ORDERED: Sodium Chloride 0.9% 1000 ML 1,000 ML ONE ×2 (13:25→14:29)
[2024-01-21] MEDS ORDERED: solu-MEDROL ONE (13:25)
[2024-01-21] MEDS: Sodium Chloride 0.9% 1000 ML 1,000 ML IV STA ×2 (13:26→14:31)
[2024-01-21] MEDS: solu-MEDROL 125 MG, Sterile H2O 10 ml 2 ML IV ONE (13:26)
[2024-01-21] MEDS: BENADRYL 50 MG/ML IV ONE ×2 (13:26→14:49)
[2024-01-21 13:35] LABS: BASOPHIL % 0.5 % (0.0-0.4); Basophil (Absolute #) 0.06 x10^3/uL (0-0.4); Eosinophil % 0.8 % (0.00-5.0); Hematocrit 49.7 % (42-50); Hemoglobin 16.2 g/dL (12.5-18.0); IMMATURE GRAN # 0.02 x10^3u/L (0.00-0.03); IMMATURE GRAN % 0.2 % (0.00-0.4); Lymphocyte (Absolute #) 3.42 x10^3/uL (1.0-4.6); Lymphocytes % 28.4 % (24.0-44.0); Mean Cell Volume 90.5 fL (78-100); Mean Corpuscular Hemoglobin 29.5 pg (26-32); Mean Corpuscular Hgb Concent. 32.6 g/dL (32-36); Mean Platelet Volume 9.8 fL (7.5-11.0); Monocyte (Absolute #) 0.85 x10^3/uL (0.0-1.3); Monocytes % 7.1 % (0.0-12.0); Platelet Count 360 x10^3/uL (150-450); Red Blood Count 5.49 x10^6/uL (4.1-5.6); Red Cell Distribution Width 12.6 % (11.5-14.0); White Blood Count 12.1 x10^3/uL (4.0-10.5)
--- NOTE | 2024-01-21 14:11 | XRAY ---
Indication: Supra ventricular tachycardia. Comparison: September 27, 2023 Portable chest is now slightly rotated and again hyperinflated without focal infiltrate, consolidation, or large effusion. Heart not enlarged. Bony thorax intact again with osteopenia and mild degenerative changes. Impression: Continued nonacute hyperinflated chest with chronic features.
[2024-01-21] MEDS ORDERED: Adenocard IV 6 MG/2 ML IV ONE (14:13)
[2024-01-21] MEDS: Adenocard IV 6 MG/2 ML IV ONE (14:18)
[2024-01-21 14:50] LABS: ALBUMIN 3.7 g/dL (3.5-5.0); ANION GAP 8.1 MEQ/L (5-15); BILIRUBIN,TOTAL 0.4 mg/dL (0.2-1.3); Creatinine 1 1.18 mg/dL (0.66-1.25); EST GLOMERULAR FILTRATION RATE 70.6 ML/MIN; MAGNESIUM 1.7 mg/dL (1.6-2.3); Potassium 3.8 mmol/L (3.5-5.1); Total Protein 6.4 g/dL (6.3-8.2)
[2024-01-21] MEDS ORDERED: PROVENTIL 2.5 MG/3 ML NEB IH ONE (15:24)
[2024-01-21] MEDS: PROVENTIL 2.5 MG/3 ML NEB IH ONE (15:27)
--- NOTE | 2024-01-21 16:19 | PCM.HP ---
<ALISTAIR MORALES - Last Filed: 01/21/24 16:37> History of Present Illness - Chief Complaint Chief Complaint: SVT; Angioedema of upper lip Date: 01/21/24 History of Present Illness: is a 58 year old male with a pmhx of AFIB, HTN, smoker (2 cigarettes a month), and MRSA (5-6 year ago), who presented to ED 01/21/24 with complaints of a lip swelling, shortness of breath, and wheezing. Onset was around 8/9 a.m today. Patient states he woke up feeling nauseated, vomited once and when he went to take a drink he noticed his lip felt like it was swelling. He has had several admissions for similar episodes in the past. During prior admissions trelegy lisinopril, and losartan were discontinued. He reports that he has not been prescribed any new medications (not able to provide medication list, unsure of the names) nor has he ever been told he has food allergies. He also denies any changes to detergents/soaps. He denies fever, CP, vision changes, headache, dizziness, or sick contacts. He does feel like he had chills earlier. In ED, patient was tachycardic and hypotensive. Initial EKG per ER physician read showing SVT with HR at 157. Labs showing leukocytosis which may be reactive otherwise labs unremarkable. Patient was given adenosine with repeat EKG NS with HR [address] depression in leads III & AVF. Initial troponins wnl. Patient treated with Benadryl and solu-medrol with upper lip still edematous. Will admit for observation of SVT and angioedema of the upper lip. - Review of Systems Constitutional: Chills Eyes: No Symptoms Ears, Nose, & Throat: Mouth Swelling Respiratory: Short Of Breath Cardiac: No Symptoms Abdominal/Gastrointestinal: Nausea, Vomiting Genitourinary Symptoms: No Symptoms Musculoskeletal: No Symptoms Skin: No Symptoms Neurological: No Symptoms Psychological: No Symptoms Endocrine: No Symptoms Hematologic/Lymphatic: No Symptoms Immunological/Allergic: Pollen Allergy Medications & Allergies Home Medications: Home Medication List Albuterol Sulfate 3 ml IH Q6H PRN PRN 05/24/23 [History Confirmed 01/21/24] Albuterol Sulfate [Proair Respiclick] 2 puff IH Q6H PRN PRN 05/24/23 [History Confirmed 01/21/24] Metoprolol Tartrate 50 mg [Lopressor 50 MG] 50 mg PO BID 09/27/23 [History Confirmed 01/21/24] Allergies/Adverse Reactions: Allergies Allergy/AdvReac Type Severity Reaction Status Date / Time codeine Allergy Severe Hives Verified 01/21/24 13:33 lisinopril Allergy Severe angioedema Verified 01/21/24 13:33 losartan Allergy Severe Swelling Verified 01/21/24 13:33 of Tongue and Lips - Past Medical History Past Medical History: Yes Neurological History: Other ENT History: No Pertinent History Cardiac History: Hypertension Respiratory History: Asthma Endocrine Medical History: No Pertinent History Musculoskelatal History: Other GI Medical History: Hepatitis History: No Pertinent History Pyscho-Social History: No Pertinent History Male Reproductive Disorders: No Pertinent History Comment: mrsa/ Hep C, sciatica - Past Surgical History Past Surgical History: Yes Neuro Surgical History: No Pertinent History Cardiac History: No Pertinent History Respiratory Surgery: No Pertinent History GI Surgical History: No Pertinent History Genitourinary Surgical Hx: No Pertinent History Musculskeletal Surgical Hx: No Pertinent History Male Surgical History: No Pertinent History Other Surgical History: drainage tube in head, left eye, right chin Significant Family History: no pertinent family hx - Social History Smoking Status: Current every day smoker How long have you smoked: 13yo Exposure to second hand smoke: Yes Alcohol: None Drug Use: none - Social Determinants of Health Will the patient participate in the screening: Yes Do you worry about a steady place to live?: No Do you have any problems with any of the following?: No known problems In the past 12 months,have you had to go without utilities?: No Have you or anyone in your house had to go without enough: No Transportation Issues: No Has anyone in your support network made you feel unsafe?: No Does the patient want assistance with any of the above?: No - Physical Exam Vital Signs: Vital Signs - 24 hr Temp Pulse Resp BP BP Pulse Ox 01/21/24 15:31 96 01/21/24 15:29 73 20 96 01/21/24 15:00 72 13 134/93 97 01/21/24 14:30 70 15 114/78 97 01/21/24 14:01 72 21 133/81 95 01/21/24 14:00 151 H 18 97 01/21/24 13:50 151 H 27 H 96 01/21/24 13:40 151 H 21 95 01/21/24 13:37 155 H 23 95 01/21/24 13:23 96.4 F 160 H 22 94/75 96 General Appearance: no apparent distress Neurologic Exam: alert, oriented x 3, cooperative Eye Exam: PERRL/EOMI Ears, Nose, Throat Exam: other (angioededema to upper lip) Neck Exam: normal inspection Respiratory Exam: crackles/rales, wheezing Cardiovascular Exam: regular rate/rhythm, normal heart sounds Gastrointestinal/Abdomen Exam: soft, normal bowel sounds Rectal Exam: deferred Back Exam: normal inspection Extremity Exam: normal inspection Skin Exam: normal color Results - Labs Lab/Micro Results: Lab Results-Last 24 Hours 01/21/24 01/21/24 01/21/24 Range/Units 13:25 13:25 13:25 WBC 12.1 H (4.0-10.5) x10^3/uL RBC 5.49 (4.1-5.6) x10^6/uL Hgb 16.2 (12.5-18.0) g/dL Hct 49.7 (42-50) % MCV 90.5 (78-100) fL MCH 29.5 (26-32) pg MCHC 32.6 (32-36) g/dL RDW 12.6 (11.5-14.0) % Plt Count 360 (150-450) x10^3/uL MPV 9.8 (7.5-11.0) fL Gran % 63.0 (36.0-66.0) % Immature Gran % (Auto) 0.2 (0.00-0.4) % Nucleat RBC Rel Count 0.0 (0.00-0.1) % Eos # (Auto) 0.10 (0-0.5) x10^3/uL Immature Gran # (Auto) 0.02 (0.00-0.03) x10^3u/L Absolute Lymphs (auto) 3.42 (1.0-4.6) x10^3/uL Absolute Monos (auto) 0.85 (0.0-1.3) x10^3/uL Absolute Nucleated RBC 0.00 (0.00-0.01) x10^3u/L Lymphocytes % 28.4 (24.0-44.0) % Monocytes % 7.1 (0.0-12.0) % Eosinophils % 0.8 (0.00-5.0) % Basophils % 0.5 (0.0-0.4) % Absolute Granulocytes 7.60 H (1.4-6.9) x10^3/uL Basophils # 0.06 (0-0.4) x10^3/uL Sodium 139 (135-145) mmol/L Potassium 3.8 (3.5-5.1) mmol/L Chloride 112 H (98-107) mmol/L Carbon Dioxide 23 (22-30) mmol/L Anion Gap 8.1 (5-15) MEQ/L BUN 28 H (9-20) mg/dL Creatinine 1.18 (0.66-1.25) mg/dL Estimated GFR 70.6 ML/MIN Glucose 130 H (74-106) mg/dL Calcium 9.0 (8.4-10.2) mg/dL Magnesium 1.7 (1.6-2.3) mg/dL Total Bilirubin 0.40 (0.2-1.3) mg/dL AST 22 (17-59) U/L ALT 21 (0-50) U/L Alkaline Phosphatase 56 (38-126) U/L Troponin I < 0.012 (0.000-0.033) ng/mL Serum Total Protein 6.4 (6.3-8.2) g/dL Albumin 3.7 (3.5-5.0) g/dL Amylase 57 (30-110) U/L Lipase 56 (23-300) U/L - Radiology Impressions Radiology Exams & Impressions: Radiology Procedures Category Date Time Status CHEST 1 VIEW (PORTABLE) Stat Exams 01/21/24 13:21 Completed - Other Procedures and Tests Respiratory Therapy 01/21/24 15:53 EKG [id number] 01/21/24 22:17 EKG ONCE Assessment/Plan (1) Angioedema of lips Current Visit: Yes Status: Acute Assessment & Plan: -Unsure what is causing this -will need to review medication list when available as pt is unsure of the names of his medications. Patient may need referral to mine geologist for further testing/epi pen . -Solumedrol given in ED, will continue 40mg BID for now as well as prn benadryl, and epi -Supplemental oxygen with goal spo2 >92% -IVF -Abuterol nebs PRN for bronchospasm -Pepcid bid Code(s): T78.3XXA - ANGIONEUROTIC EDEMA, INITIAL ENCOUNTER (2) SVT (supraventricular tachycardia) Current Visit: Yes Status: Acute Assessment & Plan: -Converted to NS on repeat EKG after receiving adenosine in ED -Metoprolol 5mg IV prn -TELE -UDS -Trops WNL Code(s): I47.1 - SUPRAVENTRICULAR TACHYCARDIA * DO NOT USE * (3) Asthma Current Visit: No Status: Acute Assessment & Plan: -CXR -RT eval - neb/inh Code(s): J45.909 - UNSPECIFIED ASTHMA, UNCOMPLICATED (4) Leukocytosis Current Visit: No Status: Acute Assessment & Plan: -most likely reactive, will trend -CXR with nonacute hyperinflated chest -UA pending Code(s): D72.829 - ELEVATED WHITE BLOOD CELL COUNT, UNSPECIFIED (5) Smoker Current Visit: No Status: Acute Assessment & Plan: -Advised cessation Code(s): F17.200 - NICOTINE DEPENDENCE, UNSPECIFIED, UNCOMPLICATED (6) HTN (hypertension) Current Visit: Yes Status: Acute Assessment & Plan: -stable, will review home medications when available. Code(s): I10 - ESSENTIAL (PRIMARY) HYPERTENSION (7) Afib Current Visit: Yes Status: Acute Assessment & Plan: -Planned ablation on 01/26/[address] Mclean at [facility] - patient states he does have medications on hold right now, I believe this is probably his anticoagulant -Continue metoprolol, patient unsure of medications, will call pharmacy to obtain list. VTE: bilateral SCD Dispo: 1-2 days Code: Full Code(s): I48.91 - UNSPECIFIED ATRIAL FIBRILLATION Telemedicine Encounter - Telemedicine Encounter Telemedicine Encounter: The entirety of this encounter was performed via Telemedicine" <ASHIA WYMAN - Last Filed: 01/21/24 21:04> History of Present Illness - Chief Complaint History of Present Illness: is a 58 year old male. - Physical Exam Vital Signs: Vital Signs - 24 hr Temp Pulse Resp BP BP Pulse Ox 01/21/24 20:36 81 18 92 L 01/21/24 19:53 96.6 F 81 18 117/81 94 L 01/21/24 16:28 78 16 93 L 01/21/24 16:00 98.0 F 73 16 128/77 93 L 01/21/24 15:53 78 01/21/24 15:52 98.0 F 73 16 128/77 93 L 01/21/24 15:31 96 01/21/24 15:29 73 20 96 01/21/24 15:00 72 13 134/93 97 01/21/24 14:30 70 15 114/78 97 01/21/24 14:01 72 21 133/81 95 01/21/24 14:00 151 H 18 97 01/21/24 13:50 151 H 27 H 96 01/21/24 13:40 151 H 21 95 01/21/24 13:37 155 H 23 95 01/21/24 13:23 96.4 F 160 H 22 94/75 96 Results - Labs Lab/Micro Results: Lab Results-Last 24 Hours 01/21/24 01/21/24 01/21/24 Range/Units 13:25 13:25 13:25 WBC 12.1 H (4.0-10.5) x10^3/uL RBC 5.49 (4.1-5.6) x10^6/uL Hgb 16.2 (12.5-18.0) g/dL Hct 49.7 (42-50) % MCV 90.5 (78-100) fL MCH 29.5 (26-32) pg MCHC 32.6 (32-36) g/dL RDW 12.6 (11.5-14.0) % Plt Count 360 (150-450) x10^3/uL MPV 9.8 (7.5-11.0) fL Gran % 63.0 (36.0-66.0) % Immature Gran % (Auto) 0.2 (0.00-0.4) % Nucleat RBC Rel Count 0.0 (0.00-0.1) % Eos # (Auto) 0.10 (0-0.5) x10^3/uL Immature Gran # (Auto) 0.02 (0.00-0.03) x10^3u/L Absolute Lymphs (auto) 3.42 (1.0-4.6) x10^3/uL Absolute Monos (auto) 0.85 (0.0-1.3) x10^3/uL Absolute Nucleated RBC 0.00 (0.00-0.01) x10^3u/L Lymphocytes % 28.4 (24.0-44.0) % Monocytes % 7.1 (0.0-12.0) % Eosinophils % 0.8 (0.00-5.0) % Basophils % 0.5 (0.0-0.4) % Absolute Granulocytes 7.60 H (1.4-6.9) x10^3/uL Basophils # 0.06 (0-0.4) x10^3/uL Sodium 139 (135-145) mmol/L Potassium 3.8 (3.5-5.1) mmol/L Chloride 112 H (98-107) mmol/L Carbon Dioxide 23 (22-30) mmol/L Anion Gap 8.1 (5-15) MEQ/L BUN 28 H (9-20) mg/dL Creatinine 1.18 (0.66-1.25) mg/dL Estimated GFR 70.6 ML/MIN Glucose 130 H (74-106) mg/dL Calcium 9.0 (8.4-10.2) mg/dL Magnesium 1.7 (1.6-2.3) mg/dL Total Bilirubin 0.40 (0.2-1.3) mg/dL AST 22 (17-59) U/L ALT 21 (0-50) U/L Alkaline Phosphatase 56 (38-126) U/L Troponin I < 0.012 (0.000-0.033) ng/mL Serum Total Protein 6.4 (6.3-8.2) g/dL Albumin 3.7 (3.5-5.0) g/dL Amylase 57 (30-110) U/L Lipase 56 (23-300) U/L Urine Color (Yellow) Urine Appearance (Clear) Urine pH (4.6-8.0) Ur Specific Starbuck (1.005-1.030) Urine Protein (Negative) Urine Glucose (UA) (Negative) mg/dL Urine Ketones (Negative) Urine Blood (Negative) Urine Nitrite (Negative) Urine Bilirubin (Negative) Urine Urobilinogen (0.2) mg/dL Ur Leukocyte Esterase (Negative) U Hyaline Cast (Auto) (0-2) /LPF Urine Microscopic RBC (0-5) /HPF Urine Microscopic WBC (0-5) /HPF Ur Epithelial Cells (None Seen) /HPF Urine Bacteria (None Seen) /HPF Urine Culture Reflexed (NO) 01/21/24 01/21/24 Range/Units 16:30 19:22 WBC (4.0-10.5) x10^3/uL RBC (4.1-5.6) x10^6/uL Hgb (12.5-18.0) g/dL Hct (42-50) % MCV (78-100) fL MCH (26-32) pg MCHC (32-36) g/dL RDW (11.5-14.0) % Plt Count (150-450) x10^3/uL MPV (7.5-11.0) fL Gran % (36.0-66.0) % Immature Gran % (Auto) (0.00-0.4) % Nucleat RBC Rel Count (0.00-0.1) % Eos # (Auto) (0-0.5) x10^3/uL Immature Gran # (Auto) (0.00-0.03) x10^3u/L Absolute Lymphs (auto) (1.0-4.6) x10^3/uL Absolute Monos (auto) (0.0-1.3) x10^3/uL Absolute Nucleated RBC (0.00-0.01) x10^3u/L Lymphocytes % (24.0-44.0) % Monocytes % (0.0-12.0) % Eosinophils % (0.00-5.0) % Basophils % (0.0-0.4) % Absolute Granulocytes (1.4-6.9) x10^3/uL Basophils # (0-0.4) x10^3/uL Sodium (135-145) mmol/L Potassium (3.5-5.1) mmol/L Chloride (98-107) mmol/L Carbon Dioxide (22-30) mmol/L Anion Gap (5-15) MEQ/L BUN (9-20) mg/dL Creatinine (0.66-1.25) mg/dL Estimated GFR ML/MIN Glucose (74-106) mg/dL Calcium (8.4-10.2) mg/dL Magnesium (1.6-2.3) mg/dL Total Bilirubin (0.2-1.3) mg/dL AST (17-59) U/L ALT (0-50) U/L Alkaline Phosphatase (38-126) U/L Troponin I < 0.012 (0.000-0.033) ng/mL Serum Total Protein (6.3-8.2) g/dL Albumin (3.5-5.0) g/dL Amylase (30-110) U/L Lipase (23-300) U/L Urine Color Yellow (Yellow) Urine Appearance Clear (Clear) Urine pH 5.5 (4.6-8.0) Ur Specific Starbuck 1.025 (1.005-1.030) Urine Protein Negative (Negative) Urine Glucose (UA) >=1000 A (Negative) mg/dL Urine Ketones Trace A (Negative) Urine Blood Negative (Negative) Urine Nitrite Negative (Negative) Urine Bilirubin Negative (Negative) Urine Urobilinogen 0.2 (0.2) mg/dL Ur Leukocyte Esterase Negative (Negative) U Hyaline Cast (Auto) NONE SEEN (0-2) /LPF Urine Microscopic RBC 0-2 (0-5) /HPF Urine Microscopic WBC 0-2 (0-5) /HPF Ur Epithelial Cells None Seen (None Seen) /HPF Urine Bacteria None Seen (None Seen) /HPF Urine Culture Reflexed NO (NO) - Radiology Impressions Radiology Exams & Impressions: Radiology Procedures Category Date Time Status CHEST 1 VIEW (PORTABLE) Stat Exams 01/21/24 13:21 Completed - Other Procedures and Tests Respiratory Therapy 01/21/24 15:29 Respiratory Therapy Assessment DAILY 01/21/24 16:53 EKG REPEAT IN AM 01/21/24 22:17 EKG ONCE Telemedicine Encounter - Telemedicine Encounter Telemedicine Encounter: The entirety of this encounter was performed via Telemedicine" JIM Encounter - JIM Encounter Attestation JIM Encounter Attestation: "ERICKA Rothman andalbinoiscussed pertinent aspects of their care with Alistair bowers with the history, physical exam (any modifications based on my personal exam will be noted below), assessment, and plan as outlined in original note. Please see immediately below for my summary of findings and additional assessment and plan along with any meaningful corrections/explanations to the Subjective/Objective portions of the JIM note will be noted." My portion of the encounter took place via telemedicine. 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 His SVT is likely worse due to withdrawal of beta clemente. He says he is still supposed to be taking another medication (does not remember which one), with instructions to stop it 2 days prior to surgery. At this time he is rate controlled without medication, will use metoprolol IVP as needed. Trops negative x 2. Upper lip swelling recurrent, and improving with IV steroids and pepcid.
[2024-01-21] MEDS ORDERED: Zofran 4 MG/2 ML VIAL IV PRN (16:53)
[2024-01-21] MEDS ORDERED: TYLENOL 325 MG PO PRN (16:53)
[2024-01-21] MEDS: Sodium Chloride 0.9% 1000 ML 1,000 ML IV SCH (17:12)
[2024-01-21] MEDS: Nicoderm CQ 21 MG TOP SCH (17:14)
[2024-01-21] MEDS: BENADRYL 50 MG/ML IV PRN (17:16)
[2024-01-21] MEDS ORDERED: Epinephrine Preservative Free 1 MG/ML IJ PRN (17:24)
[2024-01-21] MEDS: solu-MEDROL 40 MG, Sterile H2O 10 ml 1 ML IV SCH (18:56)
[2024-01-21] MEDS ORDERED: DUONEB 0.5-3 MG/3 ml Neb IH SCH (19:00)
[2024-01-21 19:31] LABS: Appearance Clear (Clear); Bacteria None Seen /HPF (None Seen); Bilirubin Negative (Negative); Blood Negative (Negative); Epithelial Cells None Seen /HPF (None Seen); Glucose, Urine >=1000 mg/dL (Negative); Hyaline Casts NONE SEEN /LPF (0-2); Ketones Trace (Negative); Leukocyte Esterase Negative (Negative); Nitrite Negative (Negative); Ph 5.5 (4.6-8.0); Protein,Urine Dip Negative (Negative); RBC 0-2 /HPF (0-5); Specific Gravity 1.025 (1.005-1.030); Urobilinogen 0.2 mg/dL (0.2); WBC 0-2 /HPF (0-5)
[2024-01-21 19:32] LABS: ADD URINE CULTURE? NO (NO)
[2024-01-21 20:24] LABS: Barbiturate,Urine NEGATIVE (NEGATIVE); Benzodiazepine,Urine NEGATIVE (NEGATIVE); Cocaine,Urine NEGATIVE (NEGATIVE); Methadone,Urine NEGATIVE (NEGATIVE); Opiate,Urine NEGATIVE (NEGATIVE); PCP,Urine NEGATIVE (NEGATIVE); THC,Urine NEGATIVE (NEGATIVE)
[2024-01-21] MEDS: PROVENTIL 2.5 MG/3 ML NEB IH SCH (20:33)
[2024-01-21 21:17] LABS: Amphetamine,Urine POSITIVE (NEGATIVE)
[2024-01-21] MEDS: Pepcid 20 MG PO SCH (22:56)
[2024-01-22 05:02] LABS: Absolute Neutrophil Ct (ANC) 11.15 x10^3/uL (1.4-6.9); BASOPHIL % 0.1 % (0.0-0.4); Basophil (Absolute #) 0.01 x10^3/uL (0-0.4); Eosinophil (Absolute #) 0 x10^3/uL (0-0.5); Hematocrit 42.8 % (42-50); Hemoglobin 13.8 g/dL (12.5-18.0); IMMATURE GRAN # 0.06 x10^3u/L (0.00-0.03); IMMATURE GRAN % 0.5 % (0.00-0.4); Lymphocyte (Absolute #) 0.83 x10^3/uL (1.0-4.6); Lymphocytes % 6.8 % (24.0-44.0); Mean Cell Volume 90.7 fL (78-100); Mean Corpuscular Hemoglobin 29.2 pg (26-32); Mean Corpuscular Hgb Concent. 32.2 g/dL (32-36); Mean Platelet Volume 9.9 fL (7.5-11.0); Monocyte (Absolute #) 0.09 x10^3/uL (0.0-1.3); Monocytes % 0.7 % (0.0-12.0); Neutrophil % 91.9 % (36.0-66.0); Platelet Count 283 x10^3/uL (150-450); Red Blood Count 4.72 x10^6/uL (4.1-5.6); Red Cell Distribution Width 12.5 % (11.5-14.0); White Blood Count 12.1 x10^3/uL (4.0-10.5)
[2024-01-22 05:34] LABS: ALBUMIN 3.9 g/dL (3.5-5.0); ANION GAP 11.5 MEQ/L (5-15); BILIRUBIN,TOTAL 0.2 mg/dL (0.2-1.3); Creatinine 1 0.92 mg/dL (0.66-1.25); EST GLOMERULAR FILTRATION RATE 95.2 ML/MIN; MAGNESIUM 1.7 mg/dL (1.6-2.3); Potassium 3.9 mmol/L (3.5-5.1); Total Protein 6.5 g/dL (6.3-8.2)
[2024-01-22] MEDS ORDERED: solu-MEDROL ONE (06:06)
--- NOTE | 2024-01-22 11:23 | PCM.DS ---
Discharge Summary Date of Admission: 01/21/24 15:50 Date of Discharge: 01/22/24 Admitting Physician: ASHIA WYMAN MD Primary Care Provider: ЕЛЕНА DOVER Allergies Allergies codeine Allergy (Severe, Verified 01/21/24 13:33) Hives lisinopril Allergy (Severe, Verified 01/21/24 13:33) angioedema losartan Allergy (Severe, Verified 01/21/24 13:33) Swelling of Tongue and Lips Hospital Summary - Hospital Course Hospital Course: is a 58 year old male with a pmhx of AFIB, HTN, smoker (2 cigarettes a month), and MRSA (5-6 year ago), who presented to ED 01/21/24 with complaints of a lip swelling, shortness of breath, and wheezing. Onset was around 8/9 a.m today. Patient states he woke up feeling nauseated, vomited once and when he went to take a drink he noticed his lip felt like it was swelling. He has had several admissions for similar episodes in the past. During prior admissions trelegy lisinopril, and losartan were discontinued. He reports that he has not been prescribed any new medications (not able to provide medication list, unsure of the names) nor has he ever been told he has food allergies. He also denies any changes to detergents/soaps. He denies fever, CP, vision changes, headache, dizziness, or sick contacts. He does feel like he had chills earlier. In ED, patient was tachycardic and hypotensive. Initial EKG per ER physician read showing SVT with HR at 157. Labs showing leukocytosis which may be reactive otherwise labs unremarkable. Patient was given adenosine with repeat EKG NS with HR [address] depression in leads III & AVF. Initial troponins wnl. Patient treated with Benadryl and solu-medrol with upper lip still edematous. Will admit for observation of SVT and angioedema of the upper lip. No overnight events noted, no further edema to upper lip. Repeat EKG NS, trop series negative. Patient does have planned SVT ablation procedure scheduled for 01/26/[address] Cortez at [facility]. I have reviewed current medication list and pre-procedural instructions. It is noted that patient is required to hold metoprolol x 5 day and amlodipine 2 days prior to procedure. Patient is at high risk for readmission due to holding the beta clemente. Discharge Note New Diagnosis: SVT/angioedema New Medications: medrol dose pack - pt to follow pre-procedural instructions Follow Up: PCP/cards Latest Assessment & Plan 1) Angioedema of lips Current Visit: Yes Status: Acute Assessment & Plan: -Unsure what is causing this -will need to review medication list when available as pt is unsure of the names of his medications. Patient may need referral to dump grounds checker for further testing/epi pen . -Solumedrol given in ED, will continue 40mg BID for now as well as prn benadryl, and epi -Supplemental oxygen with goal spo2 >92% -IVF -Abuterol nebs PRN for bronchospasm -Pepcid bid 01/21: -Continue medrol dose pack/pepcid -pt advised nebs at home prn Code(s): T78.3XXA - ANGIONEUROTIC EDEMA, INITIAL ENCOUNTER (2) SVT (supraventricular tachycardia) Current Visit: Yes Status: Acute Assessment & Plan: -Converted to NS on repeat EKG after receiving adenosine in ED -Metoprolol 5mg IV prn -TELE -UDS -Trops WNL 01/21: -Repeat eKG NS -Planned SVT ablation on Friday, instructions to hold metoprolol and amlodipine Code(s): I47.1 - SUPRAVENTRICULAR TACHYCARDIA * DO NOT USE * (3) Asthma Current Visit: No Status: Acute Assessment & Plan: -CXR negative for acute findings -RT eval - neb/inh Code(s): J45.909 - UNSPECIFIED ASTHMA, UNCOMPLICATED (4) Leukocytosis Current Visit: No Status: Acute Assessment & Plan: -most likely reactive, will trend -CXR with nonacute hyperinflated chest -UA negative Code(s): D72.829 - ELEVATED WHITE BLOOD CELL COUNT, UNSPECIFIED (5) Smoker Current Visit: No Status: Acute Assessment & Plan: -Advised cessation I spent 35 minutes [id number] with the patient on the day of discharge performing discharge exam, discussing hospital stay and discharge instructions with patient and caregivers, preparation of discharge records, prescriptions & referral forms and addressing any questions/concerns the patient had as documented above. - Vitals & Intake/Output Vital Signs: Vital Signs Temperature 96 F 05/16/24 06:58 Pulse Rate 80 01/22/24 07:04 Respiratory Rate 16 01/22/24 07:04 Blood Pressure 125/74 01/22/24 06:58 O2 Sat by Pulse Oximetry 92 L 01/22/24 07:04 Intake & Output: Intake & Output 01/19/24 01/20/24 01/21/24 01/22/24 11:59 11:59 11:59 11:59 Intake Total 2303 Output Total 480 Balance 1823 Weight 82.8 kg - Lab Result Diagrams: 01/22/24 04:51 01/22/24 04:51 Lab Results-Last 24 Hrs: Lab Results-Last 24 Hours 01/21/24 01/21/24 01/21/24 Range/Units 13:25 13:25 13:25 WBC 12.1 H (4.0-10.5) x10^3/uL RBC 5.49 (4.1-5.6) x10^6/uL Hgb 16.2 (12.5-18.0) g/dL Hct 49.7 (42-50) % MCV 90.5 (78-100) fL MCH 29.5 (26-32) pg MCHC 32.6 (32-36) g/dL RDW 12.6 (11.5-14.0) % Plt Count 360 (150-450) x10^3/uL MPV 9.8 (7.5-11.0) fL Gran % 63.0 (36.0-66.0) % Immature Gran % (Auto) 0.2 (0.00-0.4) % Nucleat RBC Rel Count 0.0 (0.00-0.1) % Eos # (Auto) 0.10 (0-0.5) x10^3/uL Immature Gran # (Auto) 0.02 (0.00-0.03) x10^3u/L Absolute Lymphs (auto) 3.42 (1.0-4.6) x10^3/uL Absolute Monos (auto) 0.85 (0.0-1.3) x10^3/uL Absolute Nucleated RBC 0.00 (0.00-0.01) x10^3u/L Lymphocytes % 28.4 (24.0-44.0) % Monocytes % 7.1 (0.0-12.0) % Eosinophils % 0.8 (0.00-5.0) % Basophils % 0.5 (0.0-0.4) % Absolute Granulocytes 7.60 H (1.4-6.9) x10^3/uL Basophils # 0.06 (0-0.4) x10^3/uL Sodium 139 (135-145) mmol/L Potassium 3.8 (3.5-5.1) mmol/L Chloride 112 H (98-107) mmol/L Carbon Dioxide 23 (22-30) mmol/L Anion Gap 8.1 (5-15) MEQ/L BUN 28 H (9-20) mg/dL Creatinine 1.18 (0.66-1.25) mg/dL Estimated GFR 70.6 ML/MIN Glucose 130 H (74-106) mg/dL Calcium 9.0 (8.4-10.2) mg/dL Magnesium 1.7 (1.6-2.3) mg/dL Total Bilirubin 0.40 (0.2-1.3) mg/dL AST 22 (17-59) U/L ALT 21 (0-50) U/L Alkaline Phosphatase 56 (38-126) U/L Troponin I < 0.012 (0.000-0.033) ng/mL Serum Total Protein 6.4 (6.3-8.2) g/dL Albumin 3.7 (3.5-5.0) g/dL Amylase 57 (30-110) U/L Lipase 56 (23-300) U/L Urine Color (Yellow) Urine Appearance (Clear) Urine pH (4.6-8.0) Ur Specific [place] (1.005-1.030) Urine Protein (Negative) Urine Glucose (UA) (Negative) mg/dL Urine Ketones (Negative) Urine Blood (Negative) Urine Nitrite (Negative) Urine Bilirubin (Negative) Urine Urobilinogen (0.2) mg/dL Ur Leukocyte Esterase (Negative) U Hyaline Cast (Auto) (0-2) /LPF Urine Microscopic RBC (0-5) /HPF Urine Microscopic WBC (0-5) /HPF Ur Epithelial Cells (None Seen) /HPF Urine Bacteria (None Seen) /HPF Urine Culture Reflexed (NO) Urine Opiates Level (NEGATIVE) Ur Methadone (NEGATIVE) Urine Barbiturates (NEGATIVE) Ur Phencyclidine (PCP) (NEGATIVE) Urine Amphetamine (NEGATIVE) U Benzodiazepine Level (NEGATIVE) Urine Cocaine (NEGATIVE) Urine Marijuana (THC) (NEGATIVE) 01/21/24 01/21/24 01/21/24 Range/Units 16:30 19:22 19:22 WBC (4.0-10.5) x10^3/uL RBC (4.1-5.6) x10^6/uL Hgb (12.5-18.0) g/dL Hct (42-50) % MCV (78-100) fL MCH (26-32) pg MCHC (32-36) g/dL RDW (11.5-14.0) % Plt Count (150-450) x10^3/uL MPV (7.5-11.0) fL Gran % (36.0-66.0) % Immature Gran % (Auto) (0.00-0.4) % Nucleat RBC Rel Count (0.00-0.1) % Eos # (Auto) (0-0.5) x10^3/uL Immature Gran # (Auto) (0.00-0.03) x10^3u/L Absolute Lymphs (auto) (1.0-4.6) x10^3/uL Absolute Monos (auto) (0.0-1.3) x10^3/uL Absolute Nucleated RBC (0.00-0.01) x10^3u/L Lymphocytes % (24.0-44.0) % Monocytes % (0.0-12.0) % Eosinophils % (0.00-5.0) % Basophils % (0.0-0.4) % Absolute Granulocytes (1.4-6.9) x10^3/uL Basophils # (0-0.4) x10^3/uL Sodium (135-145) mmol/L Potassium (3.5-5.1) mmol/L Chloride (98-107) mmol/L Carbon Dioxide (22-30) mmol/L Anion Gap (5-15) MEQ/L BUN (9-20) mg/dL Creatinine (0.66-1.25) mg/dL Estimated GFR ML/MIN Glucose (74-106) mg/dL Calcium (8.4-10.2) mg/dL Magnesium (1.6-2.3) mg/dL Total Bilirubin (0.2-1.3) mg/dL AST (17-59) U/L ALT (0-50) U/L Alkaline Phosphatase (38-126) U/L Troponin I < 0.012 (0.000-0.033) ng/mL Serum Total Protein (6.3-8.2) g/dL Albumin (3.5-5.0) g/dL Amylase (30-110) U/L Lipase (23-300) U/L Urine Color Yellow (Yellow) Urine Appearance Clear (Clear) Urine pH 5.5 (4.6-8.0) Ur Specific [place] 1.025 (1.005-1.030) Urine Protein Negative (Negative) Urine Glucose (UA) >=1000 A (Negative) mg/dL Urine Ketones Trace A (Negative) Urine Blood Negative (Negative) Urine Nitrite Negative (Negative) Urine Bilirubin Negative (Negative) Urine Urobilinogen 0.2 (0.2) mg/dL Ur Leukocyte Esterase Negative (Negative) U Hyaline Cast (Auto) NONE SEEN (0-2) /LPF Urine Microscopic RBC 0-2 (0-5) /HPF Urine Microscopic WBC 0-2 (0-5) /HPF Ur Epithelial Cells None Seen (None Seen) /HPF Urine Bacteria None Seen (None Seen) /HPF Urine Culture Reflexed NO (NO) Urine Opiates Level NEGATIVE (NEGATIVE) Ur Methadone NEGATIVE (NEGATIVE) Urine Barbiturates NEGATIVE (NEGATIVE) Ur Phencyclidine (PCP) NEGATIVE (NEGATIVE) Urine Amphetamine POSITIVE A (NEGATIVE) U Benzodiazepine Level NEGATIVE (NEGATIVE) Urine Cocaine NEGATIVE (NEGATIVE) Urine Marijuana (THC) NEGATIVE (NEGATIVE) 01/21/24 01/22/24 01/22/24 Range/Units 21:40 04:51 04:51 WBC 12.1 H (4.0-10.5) x10^3/uL RBC 4.72 (4.1-5.6) x10^6/uL Hgb 13.8 (12.5-18.0) g/dL Hct 42.8 (42-50) % MCV 90.7 (78-100) fL MCH 29.2 (26-32) pg MCHC 32.2 (32-36) g/dL RDW 12.5 (11.5-14.0) % Plt Count 283 (150-450) x10^3/uL MPV 9.9 (7.5-11.0) fL Gran % 91.9 H (36.0-66.0) % Immature Gran % (Auto) 0.5 H (0.00-0.4) % Nucleat RBC Rel Count 0.0 (0.00-0.1) % Eos # (Auto) 0 (0-0.5) x10^3/uL Immature Gran # (Auto) 0.06 H (0.00-0.03) x10^3u/L Absolute Lymphs (auto) 0.83 L (1.0-4.6) x10^3/uL Absolute Monos (auto) 0.09 (0.0-1.3) x10^3/uL Absolute Nucleated RBC 0.00 (0.00-0.01) x10^3u/L Lymphocytes % 6.8 L (24.0-44.0) % Monocytes % 0.7 (0.0-12.0) % Eosinophils % 0.0 (0.00-5.0) % Basophils % 0.1 (0.0-0.4) % Absolute Granulocytes 11.15 H (1.4-6.9) x10^3/uL Basophils # 0.01 (0-0.4) x10^3/uL Sodium 138 (135-145) mmol/L Potassium 3.9 (3.5-5.1) mmol/L Chloride 109 H (98-107) mmol/L Carbon Dioxide 21 L (22-30) mmol/L Anion Gap 11.5 (5-15) MEQ/L BUN 20 (9-20) mg/dL Creatinine 0.92 (0.66-1.25) mg/dL Estimated GFR 95.2 ML/MIN Glucose 139 H (74-106) mg/dL Calcium 9.0 (8.4-10.2) mg/dL Magnesium 1.7 (1.6-2.3) mg/dL Total Bilirubin 0.20 (0.2-1.3) mg/dL AST 23 (17-59) U/L ALT 21 (0-50) U/L Alkaline Phosphatase 56 (38-126) U/L Troponin I < 0.012 (0.000-0.033) ng/mL Serum Total Protein 6.5 (6.3-8.2) g/dL Albumin 3.9 (3.5-5.0) g/dL Amylase (30-110) U/L Lipase (23-300) U/L Urine Color (Yellow) Urine Appearance (Clear) Urine pH (4.6-8.0) Ur Specific [place] (1.005-1.030) Urine Protein (Negative) Urine Glucose (UA) (Negative) mg/dL Urine Ketones (Negative) Urine Blood (Negative) Urine Nitrite (Negative) Urine Bilirubin (Negative) Urine Urobilinogen (0.2) mg/dL Ur Leukocyte Esterase (Negative) U Hyaline Cast (Auto) (0-2) /LPF Urine Microscopic RBC (0-5) /HPF Urine Microscopic WBC (0-5) /HPF Ur Epithelial Cells (None Seen) /HPF Urine Bacteria (None Seen) /HPF Urine Culture Reflexed (NO) Urine Opiates Level (NEGATIVE) Ur Methadone (NEGATIVE) Urine Barbiturates (NEGATIVE) Ur Phencyclidine (PCP) (NEGATIVE) Urine Amphetamine (NEGATIVE) U Benzodiazepine Level (NEGATIVE) Urine Cocaine (NEGATIVE) Urine Marijuana (THC) (NEGATIVE) - Radiology Exams Ordered Rad Exams-Entire Visit: Radiology Procedures Category Date Time Status CHEST 1 VIEW (PORTABLE) Stat Exams 01/21/24 13:21 Completed - Procedures and Test Procedures and Tests throughout Hospitalization: Therapy Orders & Screens 01/21/24 15:29 Respiratory Therapy Assessment DAILY Comment: 01/21/24 15:53 EKG [id number] Comment: 01/21/24 16:53 EKG REPEAT IN AM Comment: Diagnosis: SVT; Angioedema of upper lip Respiratory Therapy Consult ONCE Comment: Reason For Exam: Diagnosis: SVT; Angioedema of upper lip 01/21/24 22:17 EKG ONCE Comment: Diagnosis: SVT; Angioedema of upper lip Discharge Exam General Appearance: no apparent distress Neurologic Exam: alert, oriented x 3, cooperative Eye Exam: PERRL Ears, Nose, Throat Exam: normal ENT inspection, moist mucous membranes Neck Exam: normal inspection Respiratory Exam: wheezing Cardiovascular Exam: regular rate/rhythm, normal heart sounds Gastrointestinal/Abdomen Exam: soft, normal bowel sounds Male Genitalia Exam: deferred Rectal Exam: deferred Back Exam: normal inspection Extremity Exam: normal inspection Skin Exam: normal color Final Diagnosis/Problem List - Final Discharge Diagnosis/Problem (1) Angioedema of lips Current Visit: Yes Status: Acute Code(s): T78.3XXA - ANGIONEUROTIC EDEMA, INITIAL ENCOUNTER (2) SVT (supraventricular tachycardia) Current Visit: Yes Status: Acute Code(s): I47.1 - SUPRAVENTRICULAR TACHYCA RDIA * DO NOT USE * (3) Asthma Current Visit: No Status: Acute Code(s): J45.909 - UNSPECIFIED ASTHMA, UN COMPLICATED (4) Leukocytosis Current Visit: No Status: Acute Code(s): D72.829 - ELEVATED WHITE BLOOD CELL COUNT, UNSPECIFIED (5) Smoker Current Visit: No Status: Acute Code(s): F17.200 - NICOTINE DEPENDENCE, UNSPECIFIED, UNCOMPLICATED (6) HTN (hypertension) Current Visit: Yes Status: Acute Code(s): I10 - ESSENTIAL (PRIMARY) HYPERTENSION (7) Afib Current Visit: Yes Status: Acute Code(s): I48.91 - UNSPECIFIED ATRIAL FIBRILLATION - Discharge Disposition: Home, Self-Care Condition: Stable Prescriptions: New Methylprednisolone Packet [Medrol Dosepack] 4 mg PO UD #30 packet Famotidine 20 mg [Pepcid 20 MG] 20 mg PO BID 14 Days #28 tablet Continue Metoprolol Tartrate 50 mg [Lopressor 50 MG] 50 mg PO BID Albuterol Sulfate/Budesonide [Airsupra 90-80 Mcg Inhaler] 2 puffs IH DAILY PRN PRN PRN Reason: Shortness Of Breath Amlodipine Besylate 5 mg [Norvasc 5 mg] 5 mg PO DAILY Albuterol/Ipratropium 3ml Neb* [DUONEB 0.5-3 MG/3 ml Neb] 3 ml IH Q6H PRN PRN PRN Reason: Shortness Of Breath Additional Instructions: hold metoprolol x 5 day and amlodipine 2 days prior to procedure per pre-surgery instructions Follow up with: ЕЛЕНА DOVER [Primary Care Provider] - 01/27/24 4:00 pm
[2024-01-22 11:34] VITALS: BP 129/69; TEMP 97.1
[2024-01-22 12:49] VITALS: PULSE 91; RESP 16; O2SAT 94
== END 2024-01-22 13:23 | disposition home or self-care (01) ==
LOC: ED 13:07 → MED SURG 15:50
PROVIDERS: ADMIT Internal Medicine; ATTEND Internal Medicine
DX: T78.3XXA Angioneurotic edema, initial encounter (principal); I47.10 Supraventricular tachycardia, unspecified; J45.909 Unspecified asthma, uncomplicated; D72.829 Elevated white blood cell count, unspecified; F17.200 Nicotine dependence, unspecified, uncomplicated; I10 Essential (primary) hypertension; I48.91 Unspecified atrial fibrillation; Z86.14 Personal history of Methicillin resistant Staphylococcus aureus infection; Z79.899 Other long term (current) drug therapy
CPT/HCPCS: 36000; 36415; 71045; 80053; 80307; 81001; 82150; 83690; 83735; 84484; 85025; 93005; 93268; 94640; 94760; 96374; 96375; 96376; 99285; G0378; Q3014; J0153; J1200; J2919; J7609; A9270-GY

== ENCOUNTER 2024-02-05 08:58 | Emergency (ER) | payer BC, OTHER ==
[2024-02-05 09:17] VITALS: TEMP 97.4; O2SAT 97
[2024-02-05] MEDS ORDERED: Cleocin Phosphate IV 600 MG/4 ML ONE (10:06)
--- NOTE | 2024-02-05 10:06 | ERPHSYRPT ---
- History of Present Illness Time Seen by Provider: 02/05/24 09:40 Source: patient Exam Limitations: no limitations Patient Subjective Stated Complaint: pt states spider bite to leg Triage Nursing Assessment: pt ambulated into the er; pt is axo x4; c/o spider bite; reddened area measuring 10 cm x 10 cm; purple area with pustules measuring 3 cm x 3 cm; minimal bleeding present; skin is hot to the touch around reddened area; no respiratory distress present; hypertensive Physician History: 58 years old male with history of atrial fibrillation status post ablation on Xarelto presented in the ER with complaint of right lower lateral thigh above knee area with a spider bite/swelling redness and bloody drainage. Patient reports this has been gradually worsening for the last 4 days. Dull aching to sharp pain with radiation to the hip and knee. No fever or chills reported. Denies any discharge of pus. Up-to-date with tetanus. Allergies/Adverse Reactions: codeine Allergy (Severe, Verified 02/05/24 09:04) Hives lisinopril Allergy (Severe, Verified 02/05/24 09:04) angioedema losartan Allergy (Severe, Verified 02/05/24 09:04) Swelling of Tongue and Lips Home Medications: Metoprolol Tartrate 50 mg [Lopressor 50 MG] 50 mg PO BID 09/27/23 [History] Albuterol Sulfate/Budesonide [Airsupra 90-80 Mcg Inhaler] 2 puffs IH DAILY PRN PRN 01/22/24 [History] Albuterol/Ipratropium 3ml Neb* [DUONEB 0.5-3 MG/3 ml Neb] 3 ml IH Q6H PRN PRN 01/22/24 [History] Amlodipine Besylate 5 mg [Norvasc 5 mg] 5 mg PO DAILY 01/22/24 [History] Pantoprazole 20 mg [Protonix 20MG Tablet] 20 mg PO BID 02/05/24 [History] Rivaroxaban [Xarelto] 20 mg PO HS 02/05/24 [History] Hx Tetanus, Diphtheria Vaccination/Date Given: Yes Hx Influenza Vaccination/Date Given: Yes Hx Pneumococcal Vaccination/Date Given: Yes Travel Risk - International Travel Have you traveled outside of the country in past 3 weeks: No - Emerging Infectious Disease Are you exhibiting symptoms associated with any current EIDs: No - Review of Systems Constitutional: No Symptoms Ears, Nose, & Throat: No Symptoms Respiratory: No Symptoms Cardiac: No Symptoms Abdominal/Gastrointestinal: No Symptoms Musculoskeletal: Injury Skin: Cellulitis, Skin Lesions Neurological: No Symptoms - Past Medical History Pertinent Past Medical History: Yes Neurological History: Other ENT History: No Pertinent History Cardiac History: Hypertension Respiratory History: Asthma Endocrine Medical History: No Pertinent History Musculoskeletal History: Other GI Medical History: Hepatitis History: No Pertinent History Psycho-Social History: No Pertinent History Male Reproductive Disorders: No Pertinent History Other Medical History: mrsa/ Hep C, sciatica - Past Surgical History Past Surgical History: Yes Neuro Surgical History: No Pertinent History Cardiac: No Pertinent History Respiratory: No Pertinent History Gastrointestinal: No Pertinent History Genitourinary: No Pertinent History Musculoskeletal: No Pertinent History Male Surgical History: No Pertinent History Other Surgical History: drainage tube in head, left eye, right chin Significant Family History: no pertinent family hx - Social History Smoking Status: Former smoker How long have you smoked: 15yo Exposure to second hand smoke: Yes Alcohol Use: Socially Drug Use: none Patient Lives Alone: No - Nursing Vital Signs Nursing Vital Signs: Initial Vital Signs Pulse Rate 80 02/05/24 09:02 Blood Pressure 167/100 02/05/24 09:02 O2 Sat by Pulse Oximetry 97 02/05/24 09:02 Pain Scale Pain Intensity 8 - Physical Exam General Appearance: no apparent distress Eye Exam: PERRL/EOMI Neck Exam: normal inspection, full range of motion Respiratory Exam: normal breath sounds, lungs clear Cardiovascular Exam: regular rate/rhythm, normal heart sounds Extremity Exam: normal range of motion, inflammation, swelling (Right lower lateral thigh with purple discoloration in the center, erythema around. Warm and mild tenderness. No swelling of the knee. No fluctuation. Firm consistency.), tenderness Neurologic Exam: alert, oriented x 3, cooperative Skin Exam: normal color, warm SpO2 Interpretation: normal SpO2: 97 O2 Delivery: Room Air Ordered Tests: Medication Summary Discontinued Medications Generic Name Dose Route Start Last Admin Trade Name Freq PRN Reason Stop Dose Admin Clindamycin Phosphate 600 mg 02/05/24 09:58 Clindamycin Phosphate 600 Mg/4 Ml Vial IM 02/05/24 09:59 ONCE STA - Progress Progress: unchanged Progress Note: 02/05/24 10:04 58 years old is evaluated in the ER for right lower lateral thighs spider bite. Patient is afebrile. It is firm consistency, no fluctuation. He has cellulitis around. I will start him on clindamycin. Patient is up-to-date with tetanus. Since he is on Xarelto, not ideal to take ibuprofen but it I will give him pain medications. Discussed signs symptoms of worsening needing return to ER which she seems understanding. Counseled pt/family regarding: diagnosis, need for follow-up Medical Desision Making - Diagnostic Testing Diagnostic test were ordered, analyzed, and reviewed by me: No - Risk of complications The pt has a mod risk of morbidity or mortality based on: Need for prescription drug management - Departure Departure Disposition: Home Clinical Impression: Spider bite, Cellulitis, leg Condition: Stable Critical Care Time: No Referrals: ЕЛЕНА DOVER [Primary Care Provider] - Follow up with PCP 1 day Instructions: Insect Bites and Stings ED Additional Instructions: Take Tylenol as needed. Follow-up with primary care for reevaluation. Return to ER for increasing pain swelling or if develop discharge/fever chills etc. Prescriptions: Hydrocodone/Acetaminophen [Hydrocodone-Acetamin 7.5-325] 1 each PO Q6HPRN PRN 3 Days #12 tablet MDD 4 PRN Reason: Pain clindamycin HCL [Clindamycin HCl] 300 mg PO QID 7 Days #28 cap
[2024-02-05] MEDS: Cleocin Phosphate IV 600 MG/4 ML IM STA (10:08)
[2024-02-05 10:13] VITALS: RESP 14
[2024-02-05] MEDS ORDERED: BACIGUENT PACKET ONE (10:35)
[2024-02-05] MEDS: BACIGUENT PACKET TP ONE (10:38)
[2024-02-05 10:44] VITALS: BP 142/80; PULSE 72
== END 2024-02-05 10:44 | disposition home or self-care (01) ==
LOC: ED 08:58
DX: S70.361A Insect bite (nonvenomous), right thigh, initial encounter (principal); L03.115 Cellulitis of right lower limb; W57.XXXA Bitten or stung by nonvenomous insect and other nonvenomous arthropods, initial encounter; I10 Essential (primary) hypertension; Z79.01 Long term (current) use of anticoagulants; Z79.891 Long term (current) use of opiate analgesic; Z79.899 Other long term (current) drug therapy
CPT/HCPCS: 96372; 99283; A9270-GY

== ENCOUNTER 2024-09-21 11:41 | Observation (INO) | payer BC, OTHER ==
[2024-09-21] MEDS ORDERED: Sterile H2O 10 ml IJ ONE (11:49)
[2024-09-21] MEDS ORDERED: solu-MEDROL ONE (11:49)
[2024-09-21] MEDS ORDERED: Pepcid 20 MG VIAL IV ONE (11:49)
[2024-09-21] MEDS ORDERED: BENADRYL 50 MG/ML ONE (11:49)
[2024-09-21] MEDS ORDERED: Epinephrine Preservative Free 1 MG/ML ONE (11:49)
[2024-09-21] MEDS: BENADRYL 50 MG/ML IV ONE (11:53)
[2024-09-21] MEDS: solu-MEDROL 125 MG, Sterile H2O 10 ml 2 ML IV ONE (11:53)
[2024-09-21] MEDS: Pepcid 20 MG VIAL IV ONE (11:53)
[2024-09-21] MEDS: Epinephrine Preservative Free 1 MG/ML IJ ONE (11:54)
--- NOTE | 2024-09-21 12:29 | ERPHSYRPT ---
- History of Present Illness Time Seen by Provider: 09/21/24 12:21 Source: patient Exam Limitations: no limitations Patient Subjective Stated Complaint: Pt states "I ate a cinnamon doghnut and woke up this way." Triage Nursing Assessment: PT presented alert and oriented X 3, skin pwd. Pt ambulates with an upright steady gait, able to speak in clear full sentences. Pt face is swollen, pt left eye swollen, pt lips swollen, respirations clear, pt has slight cough. Physician History: 59-year-old male presents to our ED for evaluation of facial swelling. Patient attributes the swelling to a cinnamon doughnut that he ate last night. Patient is not aware that he is allergic to cinnamon donuts however he attributes his symptoms to cinnamon doughnut. Patient presents to our ED with facial swelling and lip swelling. Patient is conversant. No respiratory distress. No wheezing. Patient has an occasional dry cough. Patient otherwise feels well. He voices no other complaints or concerns at this time. Patient reports he had similar episode back in January. At that time he was on lisinopril. It was believed that his facial swelling was secondary to the lisinopril. Lisinopril was discontinued. Patient had been well up until today. He is still off of lisinopril Portions of this note were created with voice recognition technology. There may be grammatical, spelling, punctuation or sound alike errors Timing/Duration: today Severity: moderate Modifying Factors: Improves With: nothing Associated Symptoms: denies symptoms Allergies/Adverse Reactions: codeine Allergy (Severe, Verified 02/05/24 09:04) Hives lisinopril Allergy (Severe, Verified 02/05/24 09:04) angioedema losartan Allergy (Severe, Verified 02/05/24 09:04) Swelling of Tongue and Lips Home Medications: Metoprolol Tartrate 50 mg [Lopressor 50 MG] 50 mg PO BID 09/27/23 [Hist ory] Albuterol Sulfate/Budesonide [Airsupra 90-80 Mcg Inhaler] 2 puffs IH DAILY PRN PRN 01/22/24 [History] Albuterol/Ipratropium 3ml Neb* [DUONEB 0.5-3 MG/3 ml Neb] 3 ml IH Q6H PRN PRN 01/22/24 [History] Amlodipine Besylate 5 mg [Norvasc 5 mg] 5 mg PO DAILY 01/22/24 [History] Pantoprazole 20 mg [Protonix 20MG Tablet] 20 mg PO BID 02/05/24 [History] Rivaroxaban [Xarelto] 20 mg PO HS 02/05/24 [History] Hx Tetanus, Diphtheria Vaccination/Date Given: Yes Hx Influenza Vaccination/Date Given: Yes Hx Pneumococcal Vaccination/Date Given: Yes Immunizations Up to Date: No Travel Risk - International Travel Have you traveled outside of the country in past 3 weeks: No - Emerging Infectious Disease Are you exhibiting symptoms associated with any current EIDs: No - Review of Systems Constitutional: No Symptoms, No Fever, No Chills Eyes: No Symptoms Ears, Nose, & Throat: No Symptoms Respiratory: No Symptoms, No Cough, No Dyspnea Cardiac: No Symptoms, No Chest Pain, No Edema, No Syncope Abdominal/Gastrointestinal: No Symptoms, No Abdominal Pain, No Nausea, No Vomiting, No Diarrhea Genitourinary Symptoms: No Symptoms, No Dysuria Musculoskeletal: No Symptoms, No Back Pain, No Neck Pain Skin: No Symptoms, No Rash Neurological: No Symptoms, No Dizziness, No Focal Weakness, No Sensory Changes Psychological: No Symptoms Endocrine: No Symptoms Hematologic/Lymphatic: No Symptoms Immunological/Allergic: No Symptoms All Other Systems: Reviewed and Negative - Past Medical History Pertinent Past Medical History: Yes Neurological History: Other ENT History: No Pertinent History Cardiac History: Hypertension Respiratory History: Asthma Endocrine Medical History: No Pertinent History Musculoskeletal History: Other GI Medical History: Hepatitis History: No Pertinent History Psycho-Social History: No Pertinent History Male Reproductive Disorders: No Pertinent History Other Medical History: mrsa/ Hep C, sciatica - Past Surgical History Past Surgical History: Yes Neuro Surgical History: No Pertinent History Cardiac: No Pertinent History Respiratory: No Pertinent History Gastrointestinal: No Pertinent History Genitourinary: No Pertinent History Musculoskeletal: No Pertinent History Male Surgical History: No Pertinent History Other Surgical History: drainage tube in head, left eye, right chin Significant Family History: no pertinent family hx - Social History Smoking Status: Former smoker How long have you smoked: 13yo Exposure to second hand smoke: Yes Alcohol Use: Socially Drug Use: none Patient Lives Alone: No - Social Determinants of Health Will the patient participate in the screening: Yes Do you worry about a steady place to live?: No Do you have any problems with any of the following?: No known problems In the past 12 months,have you had to go without utilities?: No Transportation Issues: No Has anyone in your support network made you feel unsafe?: No Have you or anyone in your house had to go without enough: No - Nursing Vital Signs Nursing Vital Signs: Initial Vital Signs Temperature 96.3 F 09/21/24 11:43 Pulse Rate 61 09/21/24 11:43 Respiratory Rate 22 09/21/24 11:43 O2 Sat by Pulse Oximetry 94 L 09/21/24 11:43 Pain Scale Pain Intensity 2 - Physical Exam General Appearance: no apparent distress, alert Eye Exam: PERRL/EOMI, eyes nml inspection Ears, Nose, Throat Exam: normal ENT inspection, moist mucous membranes, other (Facial swelling lip swelling. Airway patent. Patient tolerating oral secretions well. No respiratory distress.) Neck Exam: normal inspection, full range of motion Respiratory Exam: respiratory distress, airway intact (Coarse breath sounds faint expiratory wheezing at bases), rhonchi, wheezing, other Cardiovascular Exam: regular rate/rhythm, normal heart sounds, normal peripheral pulses Gastrointestinal/Abdomen Exam: soft, normal bowel sounds, No tenderness, No mass Back Exam: normal inspection, normal range of motion, No CVA tenderness, No vertebral tenderness Extremity Exam: normal inspection, normal range of motion, pelvis stable Neurologic Exam: alert, oriented x 3, cooperative, normal mood/affect, sensation nml, No motor deficits Skin Exam: normal color, warm, dry, other (No rash no hives no pruritus. Intact skin), No rash Lymphatic Exam: No adenopathy SpO2 Interpretation: normal SpO2: 93 O2 Delivery: Room Air - Course Nursing assessment & vital signs reviewed: Yes Ordered Tests: Active Orders 24 hr Category Date Time Status Transfer Order Routine Transfer 09/21/24 Ordered Medication Summary Discontinued Medications Generic Name Dose Route Start Last Admin Trade Name Freq PRN Reason Stop Dose Admin Methylprednisolone Sodium 0 mg 09/21/24 11:49 09/21/24 11:53 Succinate 125 mg/ Sterile IV 09/21/24 11:50 125 mg Water 2 ml STAT ONE Administration Diphenhydramine HCl Confirm 09/21/24 11:49 Diphenhydramine Hcl 50 Mg/Ml Vial Administered 09/21/24 11:50 Dose 50 mg .ROUTE .STK-MED ONE Diphenhydramine HCl 50 mg 09/21/24 11:49 09/21/24 11:53 Diphenhydramine Hcl 50 Mg/Ml Vial IV 09/21/24 11:50 50 mg STAT ONE Administration Epinephrine HCl Confirm 09/21/24 11:49 Epinephrine 1 Mg/1 Ml Pf Amp 1 Mg/Ml Ml Administered 09/21/24 11:50 Dose 1 mg .ROUTE .STK-MED ONE Epinephrine HCl 0.3 mg 09/21/24 11:50 09/21/24 11:54 Epinephrine 1 Mg/1 Ml Pf Amp 1 Mg/Ml Ml IJ 09/21/24 11:51 0.3 mg STAT ONE Administration Famotidine Confirm 09/21/24 11:49 Famotidine 20 Mg/1 Vial Administered 09/21/24 11:50 Dose 20 mg IV .STK-MED ONE Famotidine 20 mg 09/21/24 11:49 09/21/24 11:53 Famotidine 20 Mg/1 Vial IV 09/21/24 11:50 20 mg STAT ONE Administration Methylprednisolone Sodium Succinate Confirm 09/21/24 11:49 Methylprednis Sod Succ 125 Mg/2 Ml Vial Administered 09/21/24 11:50 Dose 125 mg .ROUTE .STK-MED ONE Sterile Water Confirm 09/21/24 11:49 Water For Injection,Sterile 10 Ml Vial Administered 09/21/24 11:50 Dose 10 ml IJ .STK-MED ONE - Progress Progress: improved Progress Note: 59-year-old male presents to emergency department for evaluation treatment of fa cial swelling. Physical exam reveals facial swelling and coarse breath sounds. Patient received epinephrine, Solu-Medrol, Pepcid and Benadryl. Patient feels much better. Breathing treatment ordered treatment pending. Patient will be admitted for observation. Case discussed with hospitalist who accepts admission to observation at 12:43 PM. Plan of care discussed with patient. He agrees to admission to [facility] for further evaluation and treatment. Portions of this note were created with voice recognition technology. There may be grammatical, spelling, punctuation or sound alike errors Complexity of problem addressed is moderate acute complicated no critical care time. Complexity of data reviewed and analyzed is extensive. Test ordered test reviewed results analyzed and correlated clinically with history and physical exam. Risk of complication and or risk of morbidity/mortality of patient management is high. Patient requires hospitalization for further evaluation and treatment. Vital stable. Time spent to admit patient is approximately 15 minutes. Plan of care established for shared decision making. No social determinants of health present to impede follow-up. Portions of this note were created with voice recognition technology. There may be grammatical, spelling, punctuation or sound alike errors 09/21/24 12:49 Counseled pt/family regarding: diagnosis - Departure Departure Disposition: Observation Clinical Impression: Angioedema Condition: Stable Critical Care Time: No Referrals: ЕЛЕНА DOVER [Primary Care Provider] - Follow up/PCP as directed
[2024-09-21] MEDS ORDERED: DUONEB 0.5-3 MG/3 ml Neb IH ONE (12:59)
[2024-09-21] MEDS: DUONEB 0.5-3 MG/3 ml Neb IH ONE (13:02)
[2024-09-21] MEDS ORDERED: NON-FORMULARY ITEM (Albuterol Sulfate/Budesonide [Airsupra 90-80 Mcg Inhaler] 10.7 GM Hfa. IH PRN (14:57)
[2024-09-21] MEDS ORDERED: DUONEB 0.5-3 MG/3 ml Neb IH PRN (14:57)
--- NOTE | 2024-09-21 14:58 | PCM.HP ---
History of Present Illness - Chief Complaint Chief Complaint: Angioedema Date: 09/21/24 History of Present Illness: is a 59 year old male with pmhx of AFIB, HTN, asthma, hepatitis, and MRSA (5-6 year ago). He presented to emergency department today for eval uation and treatment of facial swelling. He states he ate a donut with cinnamon last night and this could be the cause. He reports no previous reaction like this before with cinnamon. He had a reaction in the past that was similar d/t medication but he has not taken that medication for some time. He has never seen an electrolysis investigator. Physical exam in ER revealed facial swelling and coarse breath sounds. Patient received epinephrine, Solu-Medrol, Pepcid and Benadryl. Patient feels much better but continues to have some facial swelling. Lung sounds have wheezing throughout. Will continue with same plan of care and breathing treatments PRN. He denies CP, abd. pain, N/V/D. - Review of Systems Constitutional: No Fever, No Chills Eyes: No Symptoms, Other (edema of face and around eye and lips) Ears, Nose, & Throat: No Symptoms Respiratory: No Cough, No Short Of Breath Cardiac: No Chest Pain, No Edema, No Syncope Abdominal/Gastrointestinal: No Abdominal Pain, No Nausea, No Vomiting, No Diarrhea Genitourinary Symptoms: No Dysuria Musculoskeletal: No Back Pain, No Neck Pain Skin: No Rash Neurological: No Dizziness, No Focal Weakness, No Sensory Changes Psychological: No Symptoms Endocrine: No Symptoms Hematologic/Lymphatic: No Symptoms Immunological/Allergic: No Symptoms Medications & Allergies Home Medications: Home Medication List Metoprolol Tartrate 50 mg [Lopressor 50 MG] 50 mg PO BID 09/27/23 [History Confirmed 09/21/24] Albuterol Sulfate/Budesonide [Airsupra 90-80 Mcg Inhaler] 2 puffs IH DAILY PRN PRN 01/22/24 [History Confirmed 09/21/24] Albuterol/Ipratropium 3ml Neb* [DUONEB 0.5-3 MG/3 ml Neb] 3 ml IH Q6H PRN PRN 01/22/24 [History Confirmed 09/21/24] Amlodipine Besylate 5 mg [Norvasc 5 mg] 5 mg PO DAILY 01/22/24 [History Confirmed 09/21/24] Rivaroxaban [Xarelto] 20 mg PO HS 02/05/24 [History Confirmed 09/21/24] Fluticasone Propion/Salmeterol [Advair 100-50 Diskus] 1 each IH DAILY 09/21/24 [History Confirmed 09/21/24] Furosemide 40 mg [Lasix 40 MG] 40 mg PO DAILY 09/21/24 [History Confirmed 09/21/24] Allergies/Adverse Reactions: Allergies Allergy/AdvReac Type Severity Reaction Status Date / Time codeine Allergy Severe Hives Verified 02/05/24 09:04 lisinopril Allergy Severe angioedema Verified 02/05/24 09:04 losartan Allergy Severe Swelling Verified 02/05/24 09:04 of Tongue and Lips - Past Medical History Past Medical History: Yes Neurological History: Other ENT History: No Pertinent History Cardiac History: Hypertension Respiratory History: Asthma Endocrine Medical History: No Pertinent History Musculoskelatal History: Other GI Medical History: Hepatitis History: No Pertinent History Pyscho-Social History: No Pertinent History Male Reproductive Disorders: No Pertinent History Comment: mrsa/ Hep C, sciatica - Past Surgical History Past Surgical History: Yes Neuro Surgical History: No Pertinent History Cardiac History: No Pertinent History Respiratory Surgery: No Pertinent History GI Surgical History: No Pertinent History Genitourinary Surgical Hx: No Pertinent History Musculskeletal Surgical Hx: No Pertinent History Male Surgical History: No Pertinent History Other Surgical History: drainage tube in head, left eye, right chin Significant Family History: no pertinent family hx - Social History Smoking Status: Former smoker How long have you smoked: 13yo Exposure to second hand smoke: Yes Alcohol: None Drug Use: none - Social Determinants of Health Will the patient participate in the screening: Yes Do you worry about a steady place to live?: No Do you have any problems with any of the following?: No known problems In the past 12 months,have you had to go without utilities?: No Have you or anyone in your house had to go without enough: No Transportation Issues: No Has anyone in your support network made you feel unsafe?: No Does the patient want assistance with any of the above?: No - Physical Exam Vital Signs: Vital Signs - 24 hr Temp Pulse Resp BP Pulse Ox 09/21/24 14:15 61 18 161/76 98 09/21/24 14:01 137/85 98 09/21/24 13:45 159/78 97 09/21/24 13:30 149/74 97 09/21/24 13:15 58 L 18 139/80 97 09/21/24 13:03 78 18 97 09/21/24 13:01 135/71 96 09/21/24 12:54 93 L 09/21/24 12:52 133/81 98 09/21/24 12:47 64 20 133/78 96 09/21/24 11:43 96.3 F 61 22 93 L General Appearance: no apparent distress, alert, obese Neurologic Exam: alert, oriented x 3, cooperative, normal mood/affect, nml cerebellar function, nml station & gait, sensation nml, No motor deficits Eye Exam: PERRL/EOMI, eyes nml inspection, other (edema around eyes) Ears, Nose, Throat Exam: TMs normal, pharynx normal, moist mucous membranes, other (edema of lips and face) Neck Exam: normal inspection, non-tender, supple, full range of motion Respiratory Exam: wheezing, No respiratory distress Cardiovascular Exam: regular rate/rhythm, normal heart sounds, normal peripheral pulses Gastrointestinal/Abdomen Exam: soft, normal bowel sounds, No tenderness, No mass Back Exam: normal inspection, normal range of motion, No CVA tenderness, No vertebral tenderness Extremity Exam: normal inspection, normal range of motion, pelvis stable Skin Exam: normal color, warm, dry, No rash Lymphatic Exam: No adenopathy Results - Other Procedures and Tests Respiratory Therapy 09/21/24 14:55 Respiratory Therapy Assessment DAILY Assessment/Plan (1) Angioedema Current Visit: Yes Status: Acute Assessment & Plan: - improved with meds gave in ER - Continue same plan of care- Solu-Medrol, Pepcid, and Benadryl. - Will need referral to electrolysis investigator at d/c - Tele - Labs ordered - Will need Epi-pen at d/c Code(s): T78.3XXA - ANGIONEUROTIC EDEMA, INITIAL ENCOUNTER (2) Asthma Current Visit: No Status: Chronic Assessment & Plan: - With acute exacerbation - Xoponex Q4 PRN - CXR: Impression: Continued nonacute hyperinflated chest with chronic features. - RA 95% Code(s): J45.909 - UNSPECIFIED ASTHMA, UNCOMPLICATED (3) Essential (primary) hypertension Current Visit: No Status: Chronic Assessment & Plan: - Continue home meds - BP stable Code(s): I10 - ESSENTIAL (PRIMARY) HYPERTENSION (4) History of atrial fibrillation Current Visit: Yes Status: Acute Assessment & Plan: - Continue Xarelto VTE: Xarelto PPI: Pepcid Next of KIN: Friend D/C plan: tomorrow Code status: Full Code(s): Z86.79 - PERSONAL HISTORY OF OTHER DISEASES OF THE CIRCULATORY SYSTEM Telemedicine Encounter - Telemedicine Encounter Telemedicine Encounter: "The entirety of this encounter was performed via Telemedicine" This visit was performed using real-time audio and video connection between my location and thepatients locationwith the assistance of a surrogateat the patients location. Written or verbal consent was obtained from the patient/guardian to perform this visit usingsynchronoustelemedicine technology. Any patient questions regarding the telemedicine interaction were answered.
[2024-09-21] MEDS ORDERED: Xopenex 1.25 MG/0.5 ML UD NEBULE IH PRN (15:26)
[2024-09-21] MEDS ORDERED: BENADRYL 25 MG CAPSULE PO PRN (15:28)
[2024-09-21 15:39] LABS: Hematocrit 43.3 % (40.1-51.0); Hemoglobin 13.8 g/dL (13.7-17.5); Mean Cell Volume 88.5 fL (79.0-92.2); Mean Corpuscular Hemoglobin 28.2 pg (25.7-32.2); Mean Corpuscular Hgb Concent. 31.9 g/dL (32.3-36.5); Mean Platelet Volume 9.6 fL (9.4-12.4); Platelet Count 343 x10^3/uL (163-337); Red Blood Count 4.89 x10^6/uL (4.63-6.08); Red Cell Distribution Width 12.8 % (11.6-14.4); White Blood Count 10.3 x10^3/uL (4.23-9.07)
[2024-09-21 15:52] LABS: ALBUMIN 4.3 g/dL (3.5-5.0); ANION GAP 10.7 MEQ/L (5-15); BILIRUBIN,TOTAL 0.3 mg/dL (0.2-1.3); Calcium 9.5 mg/dL (8.4-10.2); Creatinine 1 0.92 mg/dL (0.66-1.25); EST GLOMERULAR FILTRATION RATE 94.6 ML/MIN; Potassium 4.2 mmol/L (3.5-5.1); Total Protein 7.7 g/dL (6.3-8.2)
[2024-09-21] MEDS: DUONEB 0.5-3 MG/3 ml Neb IH SCH (18:51)
[2024-09-21] MEDS: Advair Hfa 115/21 Common canister IH SCH (18:59)
[2024-09-21] MEDS: XARELTO 10 MG TABLET PO SCH (21:21)
[2024-09-21] MEDS: Lopressor 50 MG PO SCH (21:22)
[2024-09-21] MEDS: Pepcid 20 MG VIAL IV SCH (21:28)
[2024-09-21] MEDS: solu-MEDROL 40 MG, Sterile H2O 10 ml 1 ML IV SCH (21:39)
[2024-09-21] MEDS ORDERED: solu-MEDROL 40 MG, Sterile H2O 10 ml 1 ML IV SCH (22:00)
[2024-09-22 05:39] LABS: Hemoglobin 13.6 g/dL (13.7-17.5); Mean Cell Volume 87.9 fL (79.0-92.2); Mean Corpuscular Hemoglobin 27.8 pg (25.7-32.2); Mean Corpuscular Hgb Concent. 31.6 g/dL (32.3-36.5); Platelet Count 378 x10^3/uL (163-337); Red Blood Count 4.89 x10^6/uL (4.63-6.08); Red Cell Distribution Width 12.9 % (11.6-14.4); White Blood Count 16.7 x10^3/uL (4.23-9.07)
[2024-09-22 05:53] LABS: ANION GAP 14.1 MEQ/L (5-15); BILIRUBIN,TOTAL 0.3 mg/dL (0.2-1.3); Calcium 9.8 mg/dL (8.4-10.2); Creatinine 1 0.83 mg/dL (0.66-1.25); EST GLOMERULAR FILTRATION RATE 99.6 ML/MIN; Potassium 4.4 mmol/L (3.5-5.1); Total Protein 6.9 g/dL (6.3-8.2)
[2024-09-22 07:40] VITALS: O2SAT 95
[2024-09-22 08:22] VITALS: RESP 18
[2024-09-22] MEDS: NORVASC 5 MG PO SCH (09:25)
[2024-09-22] MEDS: Lasix 40 MG PO SCH (09:26)
[2024-09-22] MEDS ORDERED: Pepcid 20 MG VIAL IV SCH (10:00)
[2024-09-22] MEDS ORDERED: NON-FORMULARY ITEM (Fluticasone Propion/Salmeterol [Advair 100-50 Diskus] 1 EACH Blst.W.De IH SCH (10:00)
[2024-09-22] MEDS ORDERED: PATIENT OWN MEDICATION IH SCH (10:00)
--- NOTE | 2024-09-22 10:17 | PCM.DS ---
Discharge Summary Date of Admission: 09/21/24 14: Date of Discharge: 09/22/24 Admitting Physician: CORETTA ESTRELLA MD Primary Care Provider: ЕЛЕНА DOVER Allergies Allergies codeine Allergy (Severe, Verified 02/05/24 09:04) Hives lisinopril Allergy (Severe, Verified 02/05/24 09:04) angioedema losartan Allergy (Severe, Verified 02/05/24 09:04) Swelling of Tongue and Lips Hospital Summary - Hospital Course Hospital Course: 09/21/24 is a 59 year old male with pmhx of AFIB, HTN, asthma, hepatitis, and MRSA (5-6 year ago). He presented to emergency department today for evaluation and treatment of facial swelling. He states he ate a donut with cinnamon last night and this could be the cause. He reports no previous reaction like this before with cinnamon. He had a reaction in the past that was similar d/t medication but he has not taken that medication for some time. He has never seen an leather goods assembler. Physical exam in ER revealed facial swelling and coarse breath sounds. Patient received epinephrine, Solu-Medrol, Pepcid and Benadryl. Patient feels much better but continues to have some facial swelling. Lung sounds have wheezing throughout. Will continue with same plan of care and breathing treatments PRN. He denies CP, abd. pain, N/V/D. 09/22/24 Pt wanting to d/c today as he is feeling much better. Angioedema resolved and he is no longer SOB. Epi- pen sent in. Appointment made with leather goods assembler. He denies any further concerns at this time. - Vitals & Intake/Output Vital Signs: Vital Signs Temperature 97.6 F 09/22/24 08:00 Pulse Rate 73 09/22/24 08:00 Respiratory Rate 18 09/22/24 08:00 Blood Pressure 142/81 09/22/24 08:00 O2 Sat by Pulse Oximetry 95 09/22/24 08:00 Intake & Output: Intake & Output 09/19/24 09/20/24 09/21/24 09/22/24 11:59 11:59 11:59 11:59 Intake Total 1000 Balance 1000 Weight 89.358 kg 87 kg - Lab Result Diagrams: 09/22/24 05:30 09/22/24 05:30 Lab Results-Last 24 Hrs: Lab Results-Last 24 Hours 09/21/24 09/21/24 09/22/24 Range/Units 15:39 15:39 05:30 WBC 10.3 H 16.7 H (4.23-9.07) x10^3/uL RBC 4.89 4.89 (4.63-6.08) x10^6/uL Hgb 13.8 13.6 L (13.7-17.5) g/dL Hct 43.3 43.0 (40.1-51.0) % MCV 88.5 87.9 (79.0-92.2) fL MCH 28.2 27.8 (25.7-32.2) pg MCHC 31.9 L 31.6 L (32.3-36.5) g/dL RDW 12.8 12.9 (11.6-14.4) % Plt Count 343 H 378 H (163-337) x10^3/uL MPV 9.6 10.0 (9.4-12.4) fL Sodium 138 (135-145) mmol/L Potassium 4.2 (3.5-5.1) mmol/L Chloride 107 (98-107) mmol/L Carbon Dioxide 25 (22-30) mmol/L Anion Gap 10.7 (5-15) MEQ/L BUN 11 (9-20) mg/dL Creatinine 0.92 (0.66-1.25) mg/dL Estimated GFR 94.6 ML/MIN Glucose 125 H (74-106) mg/dL Calcium 9.5 (8.4-10.2) mg/dL Total Bilirubin 0.30 (0.2-1.3) mg/dL AST 27 (17-59) U/L ALT 21 (0-50) U/L Alkaline Phosphatase 101 (38-126) U/L Serum Total Protein 7.7 (6.3-8.2) g/dL Albumin 4.3 (3.5-5.0) g/dL 09/22/24 Range/Units 05:30 WBC (4.23-9.07) x10^3/uL RBC (4.63-6.08) x10^6/uL Hgb (13.7-17.5) g/dL Hct (40.1-51.0) % MCV (79.0-92.2) fL MCH (25.7-32.2) pg MCHC (32.3-36.5) g/dL RDW (11.6-14.4) % Plt Count (163-337) x10^3/uL MPV (9.4-12.4) fL Sodium 137 (135-145) mmol/L Potassium 4.4 (3.5-5.1) mmol/L Chloride 105 (98-107) mmol/L Carbon Dioxide 22 (22-30) mmol/L Anion Gap 14.1 (5-15) MEQ/L BUN 14 (9-20) mg/dL Creatinine 0.83 (0.66-1.25) mg/dL Estimated GFR 99.6 ML/MIN Glucose 134 H (74-106) mg/dL Calcium 9.8 (8.4-10.2) mg/dL Total Bilirubin 0.30 (0.2-1.3) mg/dL AST 27 (17-59) U/L ALT 22 (0-50) U/L Alkaline Phosphatase 92 (38-126) U/L Serum Total Protein 6.9 (6.3-8.2) g/dL Albumin 4.0 (3.5-5.0) g/dL - Procedures and Test Procedures and Tests throughout Hospitalization: Therapy Orders & Screens 09/21/24 13:02 Respiratory Therapy Assessment DAILY Comment: 09/21/24 14:55 Respiratory Therapy Assessment DAILY Comment: Diagnosis: Angioedema 09/21/24 15:12 RT Screen per Nursing Assess ONCE Comment: Protocol Order Physician Instructions: Greater than 3 points order RT Admission Screen Reason For Exam: Triggered on Admission Diagnosis: Angioedema Diagnosis: Angioedema Pneumonia: No Home O2: No Asthma: Yes CHF: No Home CPAP/BIPAP: No Home Nebs/MDI: Yes Total Points: 9 09/21/24 15:17 Respiratory MDI BID Comment: Diagnosis: Angioedema Discharge Exam General Appearance: no apparent distress, alert Neurologic Exam: alert, oriented x 3, cooperative, normal mood/affect, nml cere bellar function, sensation nml, No motor deficits Eye Exam: PERRL, EOMI, eyes nml inspection Ears, Nose, Throat Exam: normal ENT inspection, pharynx normal, moist mucous membranes Neck Exam: normal inspection, non-tender, supple, full range of motion Respiratory Exam: normal breath sounds, lungs clear, No respiratory distress Cardiovascular Exam: regular rate/rhythm, normal heart sounds Gastrointestinal/Abdomen Exam: soft, No tenderness, No mass Male Genitalia Exam: deferred Rectal Exam: deferred Back Exam: normal inspection, normal range of motion, No CVA tenderness, No vertebral tenderness Extremity Exam: normal inspection, normal range of motion Skin Exam: normal color, warm, dry Final Diagnosis/Problem List - Final Discharge Diagnosis/Problem (1) Angioedema Current Visit: Yes Status: Acute Code(s): T78.3XXA - ANGIONEUROTIC EDEMA, INITIAL ENCOUNTER (2) Asthma Current Visit: No Status: Chronic Code(s): J45.909 - UNSPECIFIED ASTHMA, UNCOMPLICATED (3) Essential (primary) hypertension Current Visit: No Status: Chronic Code(s): I10 - ESSENTIAL (PRIMARY) HYPERTENSION (4) History of atrial fibrillation Current Visit: Yes Status: Acute Assessment & Plan: (1) Angioedema Current Visit: Yes Status: Acute Assessment & Plan: - improved with meds gave in ER - Continue same plan of care- Solu-Medrol, Pepcid, and Benadryl. - Will need referral to leather goods assembler at d/c - Tele - Labs ordered - Will need Epi-pen at d/c 09/22 - resolved - epi- pen sent in Code(s): T78.3XXA - ANGIONEUROTIC EDEMA, INITIAL ENCOUNTER (2) Asthma Current Visit: No Status: Chronic Assessment & Plan: - With acute exacerbation - Xoponex Q4 PRN - CXR: Impression: Continued nonacute hyperinflated chest with chronic features. - RA 95% Code(s): J45.909 - UNSPECIFIED ASTHMA, UNCOMPLICATED (3) Essential (primary) hypertension Current Visit: No Status: Chronic Assessment & Plan: - Continue home meds - BP stable Code(s): I10 - ESSENTIAL (PRIMARY) HYPERTENSION (4) History of atrial fibrillation Current Visit: Yes Status: Acute Assessment & Plan: - Continue Xarelto Code(s): Z86.79 - PERSONAL HISTORY OF OTHER DISEASES OF THE CIRCULATORY SYSTEM - Discharge Discharge Date: 09/22/24 Disposition: Home, Self-Care Condition: Stable Prescriptions: New EPINEPHrine [Epipen 2-Terry] 0.3 mg IM DAILY PRN PRN 2 Days #1 pkt PRN Reason: Allergies Continue Metoprolol Tartrate 50 mg [Lopressor 50 MG] 50 mg PO BID Albuterol Sulfate/Budesonide [Airsupra 90-80 Mcg Inhaler] 2 puffs IH DAILY PRN PRN PRN Reason: Shortness Of Breath Amlodipine Besylate 5 mg [Norvasc 5 mg] 5 mg PO DAILY Albuterol/Ipratropium 3ml Neb* [DUONEB 0.5-3 MG/3 ml Neb] 3 ml IH Q6H PRN PRN PRN Reason: Shortness Of Breath Rivaroxaban [Xarelto] 20 mg PO HS Fluticasone Propion/Salmeterol [Advair 100-50 Diskus] 1 each IH DAILY Furosemide 40 mg [Lasix 40 MG] 40 mg PO DAILY Instructions: Angioedema, Anaphylaxis - Discharge instructions Follow up with: ЕЛЕНА DOVER [Primary Care Provider] - 09/29/24 11:15 am KORY DACOSTA [NON-STAFF PHY W/O PRIVILEGES] - Call for Appointment
[2024-09-22] MEDS: TYLENOL 325 MG PO PRN (11:35)
[2024-09-22 11:52] VITALS: BP 140/79; PULSE 82; TEMP 97.8
== END 2024-09-22 12:33 | disposition home or self-care (01) ==
LOC: ED 11:41 → MED SURG 14:25
PROVIDERS: ADMIT Internal Medicine; ATTEND Internal Medicine
DX: T78.3XXA Angioneurotic edema, initial encounter (principal); J45.909 Unspecified asthma, uncomplicated; I10 Essential (primary) hypertension; Z86.79 Personal history of other diseases of the circulatory system; Z79.899 Other long term (current) drug therapy; Z79.01 Long term (current) use of anticoagulants; Z86.14 Personal history of Methicillin resistant Staphylococcus aureus infection
CPT/HCPCS: 36415; 80053; 85027; 93268; 94640; 94760; 96372; 96374; 96375; 99285; G0378; 99284; J0171; J1200; J2919; A9270-GY

== ENCOUNTER 2024-10-11 19:34 | Emergency (ER) | payer BC, OTHER ==
[2024-10-11 19:38] VITALS: TEMP 98.9
--- NOTE | 2024-10-11 19:39 | ERPHSYRPT ---
- History of Present Illness Time Seen by Provider: 10/11/24 19:39 Source: patient, family Exam Limitations: no limitations Physician History: This is a 59-year-old white male patient who is mildly overweight and presents with what he thinks is an allergic reaction to an unknown etiology. Patient was at friend's house and playing with the dogs which she has been done before without any issues and he ate the same type of ice cream he normally does and he suddenly began having some chin swelling, facial swelling lip swelling without any respiratory compromise. He did not have chest pain. He has no shortness of breath. Patient has a history of asthma/COPD and is on nebulizer treatments. There is been no new medications. Patient has an appointment to see an finish production manager to determine why he periodically has these episodes. Timing/Duration: today Severity: mild (To moderate) Associated Symptoms: No nausea, No vomiting, No shortness of breath, No cough, No chest pain Allergies/Adverse Reactions: codeine Allergy (Severe, Verified 10/11/24 19:50) Hives lisinopril Allergy (Severe, Verified 10/11/24 19:50) angioedema losartan Allergy (Severe, Verified 10/11/24 19:50) Swelling of Tongue and Lips Home Medications: Metoprolol Tartrate 50 mg [Lopressor 50 MG] 50 mg PO BID 09/27/23 [History] Albuterol Sulfate/Budesonide [Airsupra 90-80 Mcg Inhaler] 2 puffs IH DAILY PRN PRN 01/22/24 [History] Albuterol/Ipratropium 3ml Neb* [DUONEB 0.5-3 MG/3 ml Neb] 3 ml IH Q6H PRN PRN 01/22/24 [History] Amlodipine Besylate 5 mg [Norvasc 5 mg] 5 mg PO DAILY 01/22/24 [History] Rivaroxaban [Xarelto] 20 mg PO UD 02/05/24 [History] Fluticasone Propion/Salmeterol [Advair 100-50 Diskus] 1 each IH DAILY PRN PRN 09/21/24 [History] Furosemide 40 mg [Lasix 40 MG] 40 mg PO DAILY 09/21/24 [History] Albuterol/Ipratropium 3ml Neb* [DUONEB 0.5-3 MG/3 ml Neb] 1 neb Q6H PRN PRN 10/11/24 [History] Hx Tetanus, Diphtheria Vaccination/Date Given: Yes Hx Influenza Vaccination/Date Given: Yes Hx Pneumococcal Vaccination/Date Given: Yes Travel Risk - International Travel Have you traveled outside of the country in past 3 weeks: No - Emerging Infectious Disease Are you exhibiting symptoms associated with any current EIDs: No - Review of Systems Constitutional: No Symptoms Eyes: No Symptoms Ears, Nose, & Throat: Other (Mild facial and lip swelling. No tongue swelling) Respiratory: No Symptoms, Other, No Stridor, No Wheezing Cardiac: No Symptoms Abdominal/Gastrointestinal: No Symptoms Genitourinary Symptoms: No Symptoms Musculoskeletal: No Symptoms Skin: No Symptoms Neurological: No Symptoms Psychological: No Symptoms Endocrine: No Symptoms Hematologic/Lymphatic: No Symptoms Immunological/Allergic: No Symptoms All Other Systems: Reviewed and Negative - Past Medical History Pertinent Past Medical History: Yes Neurological History: Other ENT History: No Pertinent History Cardiac History: Hypertension Respiratory History: Asthma Endocrine Medical History: No Pertinent History Musculoskeletal History: Other GI Medical History: Hepatitis History: No Pertinent History Psycho-Social History: No Pertinent History Male Reproductive Disorders: No Pertinent History Other Medical History: mrsa/ Hep C, sciatica - Past Surgical History Past Surgical History: Yes Neuro Surgical History: No Pertinent History Cardiac: No Pertinent History Respiratory: No Pertinent History Gastrointestinal: No Pertinent History Genitourinary: No Pertinent History Musculoskeletal: No Pertinent History Male Surgical History: No Pertinent History Other Surgical History: drainage tube in head, left eye, right chin Significant Family History: no pertinent family hx - Social History Smoking Status: Former smoker How long have you smoked: 13yo Exposure to second hand smoke: Yes Alcohol Use: Socially Drug Use: none Patient Lives Alone: No - Social Determinants of Health Will the patient participate in the screening: Yes Do you worry about a steady place to live?: No In the past 12 months,have you had to go without utilities?: No Transportation Issues: No Has anyone in your support network made you feel unsafe?: No Have you or anyone in your house had to go without enough: No - Nursing Vital Signs Nursing Vital Signs: Initial Vital Signs Temperature 98.9 F 10/11/24 19:37 Pulse Rate 65 10/11/24 19:37 Respiratory Rate 20 10/11/24 19:37 Blood Pressure 142/95 10/11/24 19:37 O2 Sat by Pulse Oximetry 96 10/11/24 19:37 Pain Scale Pain Intensity 0 - Physical Exam General Appearance: no apparent distress, alert, anxiety, obese Eye Exam: PERRL/EOMI, eyes nml inspection Ears, Nose, Throat Exam: moist mucous membranes, other (Mild lip swelling. No tongue swelling. Mild chin swelling as well) Neck Exam: normal inspection, non-tender, supple, full range of motion Respiratory Exam: normal breath sounds, chest tenderness, lungs clear, airway intact, No respiratory distress, No wheezing, No stridor Cardiovascular Exam: regular rate/rhythm, normal heart sounds, normal peripheral pulses Gastrointestinal/Abdomen Exam: soft, normal bowel sounds, tenderness Rectal Exam: not done Back Exam: normal inspection, normal range of motion, No CVA tenderness, No vertebral tenderness Extremity Exam: normal inspection, normal range of motion, pelvis stable Neurologic Exam: alert, oriented x 3, cooperative, electric motor and generator assembler II-XII nml as tested, nml cerebellar function, nml station & gait, sensation nml Skin Exam: normal color, warm, dry Lymphatic Exam: No adenopathy SpO2 Interpretation: normal SpO2: 96 O2 Delivery: Room Air - Course Nursing assessment & vital signs reviewed: Yes Ordered Tests: Active Orders 24 hr Category Date Time Status Pulse Oximetry (ED) STAT Care 10/11/24 19:52 Active ACO SDOH Referral ONCE Cons 10/11/24 19:49 Active Medication Summary Discontinued Medications Generic Name Dose Route Start Last Admin Trade Name Melvinq PRN Reason Stop Dose Admin Methylprednisolone Sodium 0 mg 10/11/24 19:52 10/11/24 20:02 Succinate 125 mg/ Sterile IV 10/11/24 19:53 125 mg Water 2 ml STAT ONE Administration Diphenhydramine HCl 50 mg 10/11/24 19:52 10/11/24 20:03 Diphenhydramine Hcl 50 Mg/Ml Vial IV 10/11/24 19:53 50 mg STAT ONE Administration Diphenhydramine HCl Confirm 10/11/24 19:57 Diphenhydramine Hcl 50 Mg/Ml Vial Administered 10/11/24 19:58 Dose 50 mg .ROUTE .STK-MED ONE Famotidine 40 mg 10/11/24 19:52 10/11/24 20:01 Famotidine 20 Mg Tablet PO 10/11/24 19:53 40 mg STAT ONE Administration Famotidine Confirm 10/11/24 19:57 Famotidine 20 Mg Tablet Administered 10/11/24 19:58 Dose 40 mg .ROUTE .STK-MED ONE Methylprednisolone Sodium Succinate Confirm 10/11/24 19:57 Methylprednis Sod Succ 125 Mg/2 Ml Vial Administered 10/11/24 19:58 Dose 125 mg .ROUTE .STK-MED ONE Sterile Water Confirm 10/11/24 19:57 Water For Injection,Sterile 10 Ml Vial Administered 10/11/24 19:58 Dose 10 ml IJ .STK-MED ONE - Progress Progress: improved Progress Note: 10/11/24 20:26 My medical decision making and the assignment of low to moderate complexity of this patient's medical issue today is based on review of the patient's medication list, reviewed patient drug allergy list, history present illness and physical findings on examination. The workup does not require any laboratory radiographic studies. We provided the patient with intramuscular Benadryl, oral Pepcid and intramuscular Solu-Medrol. Differential diagnosis includes contact dermatitis, allergic reaction, angioedema Reassessment shows improvement after the above medications. Counseled pt/family regarding: diagnosis, need for follow-up Medical Desision Making - Risk of complications The pt has a mod risk of morbidity or mortality based on: Need for prescription drug management - Departure Departure Disposition: Home Clinical Impression: Allergic reaction Condition: Stable Critical Care Time: No Referrals: ЕЛЕНА DOVER [Primary Care Provider] - Follow up/PCP as directed Additional Instructions: Benadryl 25 to 50 mg orally every 6-8 hours for the next 4 days. Take your Pepcid and prednisone prescription as prescribed. Call your finish production manager and primary care provider tomorrow, to make arrangement for follow-up appointment to be seen in the next 3 to 5 days. Return to the emergency department if symptoms recur/worsen Prescriptions: Prednisone 10 mg [Deltasone 10 mg] 10 mg PO TID #12 tablet Famotidine 20 mg [Pepcid 20 MG] 20 mg PO DAILY #10 tablet
[2024-10-11] MEDS ORDERED: BENADRYL 50 MG/ML ONE (19:57)
[2024-10-11] MEDS ORDERED: solu-MEDROL ONE (19:57)
[2024-10-11] MEDS ORDERED: Pepcid 20 MG ONE (19:57)
[2024-10-11] MEDS ORDERED: Sterile H2O 10 ml IJ ONE (19:57)
[2024-10-11] MEDS: Pepcid 20 MG PO ONE (20:01)
[2024-10-11] MEDS: solu-MEDROL 125 MG, Sterile H2O 10 ml 2 ML IV ONE (20:02)
[2024-10-11] MEDS: BENADRYL 50 MG/ML IV ONE (20:03)
[2024-10-11 21:13] VITALS: O2SAT 95
[2024-10-11 21:48] VITALS: BP 157/97; PULSE 63; RESP 16
== END 2024-10-11 21:50 | disposition home or self-care (01) ==
LOC: ED 19:34
DX: T78.40XA Allergy, unspecified, initial encounter (principal); I10 Essential (primary) hypertension; Z79.52 Long term (current) use of systemic steroids; Z79.01 Long term (current) use of anticoagulants; Z79.899 Other long term (current) drug therapy; Z59.82 Transportation insecurity; Z59.19 Other inadequate housing
CPT/HCPCS: 94760; 96374; 96375; 99283; 99284; J1200; J2919; A9270-GY

== ENCOUNTER 2024-11-07 02:44 | Emergency (ER) | payer OTHER ==
[2024-11-07 02:54] VITALS: PULSE 79; RESP 18; TEMP 96.8; O2SAT 97
[2024-11-07] MEDS ORDERED: ARZOL Silver Nitrate Applicator TP ONE (03:06)
[2024-11-07] MEDS: ARZOL Silver Nitrate Applicator TP STA (03:06)
--- NOTE | 2024-11-07 03:07 | ERPHSYRPT ---
- History of Present Illness Source: patient Patient Subjective Stated Complaint: "I was catfishing and the howard standing by me went to cast and hooked my ear". Triage Nursing Assessment: Pt presents to ER with complaints of right ear wound that occurred just EVENTS INTER[employer] while catfishing. States someone went to cast their line and their hook punctured his right ear. He was able to get the hook out of his ear but couldn't get the bleeding to stop. Pt has red oozing blood coming from right upper ear small 1mm puncture wound site. Pt is on blood thinners. No other injuries or complaints. Pt is alert and oriented x 3. Skin pink, warm, and dry. Respirations are easy and unlabored. Physician History: Patient has a small abrasion on his right earlobe that will not stop bleeding. It got snagged with a fishhook. He is on Xarelto. There is no other complaints. Allergies/Adverse Reactions: codeine Allergy (Severe, Verified 11/07/24 02:54) Hives lisinopril Allergy (Severe, Verified 11/07/24 02:54) angioedema losartan Allergy (Severe, Verified 11/07/24 02:54) Swelling of Tongue and Lips Home Medications: Metoprolol Tartrate 50 mg [Lopressor 50 MG] 50 mg PO BID 09/27/23 [History] Albuterol Sulfate/Budesonide [Airsupra 90-80 Mcg Inhaler] 2 puffs IH DAILY PRN PRN 01/22/24 [History] Albuterol/Ipratropium 3ml Neb* [DUONEB 0.5-3 MG/3 ml Neb] 3 ml IH Q6H PRN PRN 01/22/24 [History] Amlodipine Besylate 5 mg [Norvasc 5 mg] 5 mg PO DAILY 01/22/24 [History] Rivaroxaban [Xarelto] 20 mg PO UD 02/05/24 [History] Fluticasone Propion/Salmeterol [Advair 100-50 Diskus] 1 each IH DAILY PRN PRN 09/21/24 [History] Furosemide 40 mg [Lasix 40 MG] 40 mg PO DAILY 09/21/24 [History] Albuterol/Ipratropium 3ml Neb* [DUONEB 0.5-3 MG/3 ml Neb] 1 neb Q6H PRN PRN 10/11/24 [History] Hx Tetanus, Diphtheria Vaccination/Date Given: Yes Hx Influenza Vaccination/Date Given: Yes Hx Pneumococcal Vaccination/Date Given: Yes Immunizations Up to Date: Yes Travel Risk - International Travel Have you traveled outside of the country in past 3 weeks: No - Emerging Infectious Disease Are you exhibiting symptoms associated with any current EIDs: No - Review of Systems Constitutional: No Symptoms Ears, Nose, & Throat: Other (Abrasion) - Past Medical History Pertinent Past Medical History: Yes Neurological History: Other ENT History: No Pertinent History Cardiac History: Hypertension, Other Respiratory History: Asthma Endocrine Medical History: No Pertinent History Musculoskeletal History: Other GI Medical History: Hepatitis History: No Pertinent History Psycho-Social History: No Pertinent History Male Reproductive Disorders: No Pertinent History Other Medical History: mrsa/ Hep C, sciatica, heart ablasion - Past Surgical History Past Surgical History: Yes Neuro Surgical History: No Pertinent History Cardiac: No Pertinent History Respiratory: No Pertinent History Gastrointestinal: No Pertinent History Genitourinary: No Pertinent History Musculoskeletal: No Pertinent History Male Surgical History: No Pertinent History Other Surgical History: drainage tube in head, left eye, right chin Significant Family History: no pertinent family hx - Social History Smoking Status: Former smoker How long have you smoked: 13yo Exposure to second hand smoke: Yes Drug Use: none - Social Determinants of Health Will the patient participate in the screening: Yes Do you worry about a steady place to live?: No Do you have any problems with any of the following?: No known problems In the past 12 months,have you had to go without utilities?: No Transportation Issues: No Has anyone in your support network made you feel unsafe?: No Have you or anyone in your house had to go w/o enough food: No - Nursing Vital Signs Nursing Vital Signs: Initial Vital Signs Temperature 96.8 F 11/07/24 02:47 Pulse Rate 79 11/07/24 02:47 Respiratory Rate 18 11/07/24 02:47 Blood Pressure 139/68 11/07/24 02:47 O2 Sat by Pulse Oximetry 97 11/07/24 02:47 Pain Scale Pain Intensity 2 - Physical Exam Ears, Nose, Throat Exam: other (Abrasion on the right ear) SpO2: 97 - Progress Progress Note: 11/07/24 03:05 Procedure note The area was cauterized with silver nitrate hemostasis was obtained. 11/07/24 03:05 - Departure Departure Disposition: Home Clinical Impression: Ear abrasion Condition: Stable Critical Care Time: No Referrals: ЕЛЕНА DOVER [Primary Care Provider] - Follow up/PCP as directed Additional Instructions: Return as needed
[2024-11-07] MEDS ORDERED: Augmentin 875-125 Tablet ONE (03:11)
[2024-11-07] MEDS: Augmentin 875-125 Tablet PO ONE (03:13)
[2024-11-07 03:21] VITALS: BP 134/71
== END 2024-11-07 03:16 | disposition home or self-care (01) ==
LOC: ED 02:44
DX: S00.411A Abrasion of right ear, initial encounter (principal); W26.8XXA Contact with other sharp object(s), not elsewhere classified, initial encounter; I10 Essential (primary) hypertension; Z79.01 Long term (current) use of anticoagulants; Z79.899 Other long term (current) drug therapy
CPT/HCPCS: 99282; 99283; A9270-GY

== ENCOUNTER 2024-12-27 10:35 | Emergency (ER) | payer OTHER ==
[2024-12-27 10:42] VITALS: TEMP 98.7
--- NOTE | 2024-12-27 10:44 | ERPHSYRPT ---
- History of Present Illness Time Seen by Provider: 12/27/24 10:43 Source: patient, family Exam Limitations: no limitations Physician History: This is an obese 59-year-old white male patient who arrives by private vehicle sent to us by the patient's primary care provider from her clinic office after receiving an injection of steroid intramuscularly. Sometime between last evening and this morning when the patient awoke he had swelling around his eyes lips and wheezing without stridor. His room air oxygen saturation level on arrival to the emergency department is approximately 94 to 96%. He has no chest pain. He has no abdominal pain. He is not having difficulty breathing. Patient has had at least 6 of these episodes and the etiology behind them has not been determined. In October 2024, there is a note that I reviewed and it stated that he was in the process of obtaining an appointment with an early childhood. That has not been done yet. Patient was out of his epinephrine that he uses when he has these episodes. Patient has a history of asthma, COPD, hypertension, sciatica and hepatitis. Timing/Duration: today Severity: moderate Modifying Factors: Improves With: nothing Associated Symptoms: denies symptoms, No abdominal pain, No cough, No chest pain, No fever Allergies/Adverse Reactions: codeine Allergy (Severe, Verified 12/27/24 10:39) Hives lisinopril Allergy (Severe, Verified 12/27/24 10:39) angioedema losartan Allergy (Severe, Verified 12/27/24 10:39) Swelling of Tongue and Lips Home Medications: Metoprolol Tartrate 50 mg [Lopressor 50 MG] 50 mg PO BID 09/27/23 [History] Amlodipine Besylate 5 mg [Norvasc 5 mg] 5 mg PO DAILY 01/22/24 [History] Rivaroxaban [Xarelto] 20 mg PO UD 02/05/24 [History] Furosemide 40 mg [Lasix 40 MG] 40 mg PO DAILY PRN 09/21/24 [History] Aspirin EC 81 mg [Ecotrin 81 mg] 81 mg PO DAILY 12/27/24 [History] Hx Tetanus, Diphtheria Vaccination/Date Given: Yes Hx Influenza Vaccination/Date Given: Yes Hx Pneumococcal Vaccination/Date Given: Yes Travel Risk - International Travel Have you traveled outside of the country in past 3 weeks: No - Emerging Infectious Disease Are you exhibiting symptoms associated with any current EIDs: No - Review of Systems Constitutional: No Symptoms Eyes: Other (Bilateral periorbital swelling, edema), No Eye Pain, No Eye Redness, No Itchy, No Vision Changes Ears, Nose, & Throat: No Symptoms Respiratory: Wheezing, No Cough, No Dyspnea, No Stridor Cardiac: No Symptoms Abdominal/Gastrointestinal: No Symptoms Genitourinary Symptoms: No Symptoms Musculoskeletal: No Symptoms Skin: No Symptoms Neurological: No Symptoms Psychological: No Symptoms Endocrine: No Symptoms Hematologic/Lymphatic: No Symptoms Immunological/Allergic: No Symptoms All Other Systems: Reviewed and Negative - Past Medical History Pertinent Past Medical History: Yes Neurological History: Other ENT History: No Pertinent History Cardiac History: Hypertension, Other Respiratory History: Asthma Endocrine Medical History: No Pertinent History Musculoskeletal History: Other GI Medical History: Hepatitis History: No Pertinent History Psycho-Social History: No Pertinent History Male Reproductive Disorders: No Pertinent History Other Medical History: mrsa/ Hep C, sciatica, heart ablasion - Past Surgical History Past Surgical History: Yes Neuro Surgical History: No Pertinent History Cardiac: No Pertinent History Respiratory: No Pertinent History Gastrointestinal: No Pertinent History Genitourinary: No Pertinent History Musculoskeletal: No Pertinent History Male Surgical History: No Pertinent History Other Surgical History: drainage tube in head, left eye, right chin Significant Family History: no pertinent family hx - Social History Smoking Status: Former smoker How long have you smoked: 13yo Exposure to second hand smoke: Yes Drug Use: none - Social Determinants of Health Will the patient participate in the screening: Yes Do you worry about a steady place to live?: No In the past 12 months,have you had to go without utilities?: No Transportation Issues: No Has anyone in your support network made you feel unsafe?: No Have you or anyone in your house had to go w/o enough food: No - Nursing Vital Signs Nursing Vital Signs: Initial Vital Signs Temperature 98.7 F 12/27/24 10:35 Pulse Rate 72 12/27/24 10:35 Respiratory Rate 19 12/27/24 10:35 Blood Pressure 150/81 12/27/24 10:35 O2 Sat by Pulse Oximetry 96 12/27/24 10:35 Pain Scale Pain Intensity 0 - Physical Exam General Appearance: no apparent distress, alert, anxiety, obese Eye Exam: PERRL/EOMI, other (Bilateral, periorbital swelling and edema of upper and lower eyelids) Ears, Nose, Throat Exam: TMs normal, pharynx normal, moist mucous membranes Neck Exam: normal inspection, non-tender, supple, full range of motion, other (No stridor) Respiratory Exam: airway intact, wheezing (Bilateral expiratory wheezing), No chest tenderness, No respiratory distress, No stridor Cardiovascular Exam: regular rate/rhythm, normal heart sounds, normal peripheral pulses Gastrointestinal/Abdomen Exam: soft, normal bowel sounds, No tenderness Rectal Exam: not done Back Exam: normal inspection, normal range of motion, No CVA tenderness Extremity Exam: normal inspection, normal range of motion, pelvis stable Neurologic Exam: alert, oriented x 3, cooperative, manager editorial II-XII nml as tested, nml cerebellar function, nml station & gait, sensation nml Skin Exam: normal color, warm, dry Lymphatic Exam: No adenopathy SpO2 Interpretation: normal SpO2: 96 O2 Delivery: Room Air - Course Nursing assessment & vital signs reviewed: Yes Ordered Tests: Active Orders 24 hr Category Date Time Status Rehabilitation Services Coordinator STAT Care 12/27/24 10:51 Active IV Insertion STAT Care 12/27/24 10:51 Active Pulse Oximetry (ED) STAT Care 12/27/24 10:51 Active CBC W DIFF Stat Lab 12/27/24 11:09 Completed CMP Stat Lab 12/27/24 11:09 Completed Respiratory Therapy Assessment DAILY RT 12/27/24 11:35 Active Medication Summary Discontinued Medications Generic Name Dose Route Start Last Admin Trade Name Melvinq PRN Reason Stop Dose Admin Albuterol/Ipratropium Confirm 12/27/24 11:29 Ipratropium/Albuterol Sulfate 3 Ml Ampul.Neb Administered 12/27/24 11:30 Dose 3 ml IH .STK-MED ONE Albuterol/Ipratropium 3 ml 12/27/24 11:33 12/27/24 11:34 Ipratropium/Albuterol Sulfate 3 Ml Ampul.Neb IH 12/27/24 11:34 3 ml STAT ONE Administration Diphenhydramine HCl 50 mg 12/27/24 10:51 12/27/24 10:57 Diphenhydramine Hcl 50 Mg/Ml Vial IV 12/27/24 10:52 50 mg STAT ONE Administration Diphenhydramine HCl Confirm 12/27/24 10:55 Diphenhydramine Hcl 50 Mg/Ml Vial Administered 12/27/24 10:56 Dose 50 mg .ROUTE .STK-MED ONE Epinephrine HCl 0.3 mg 12/27/24 10:51 12/27/24 10:57 Epinephrine 1 Mg/1 Ml Pf Amp 1 Mg/Ml Ml SQ 12/27/24 10:52 0.3 mg STAT ONE Administration Epinephrine HCl Confirm 12/27/24 10:55 Epinephrine 1 Mg/1 Ml Pf Amp 1 Mg/Ml Ml Administered 12/27/24 10:56 Dose 1 mg .ROUTE .STK-MED ONE Famotidine 40 mg 12/27/24 10:51 12/27/24 10:57 Famotidine 20 Mg/1 Vial IV 12/27/24 10:52 40 mg STAT ONE Administration Famotidine Confirm 12/27/24 10:55 Famotidine 20 Mg/1 Vial Administered 12/27/24 10:56 Dose 40 mg IV .STK-MED ONE Lab/Rad Data: Laboratory Result Diagrams 12/27/24 11:09 12/27/24 11:09 Laboratory Results 12/27/24 12/27/24 Range/Units 11:09 11:09 WBC 12.0 H (4.23-9.07) x10^3/uL RBC 5.09 (4.63-6.08) x10^6/uL Hgb 14.2 (13.7-17.5) g/dL Hct 45.4 (40.1-51.0) % MCV 89.2 (79.0-92.2) fL MCH 27.9 (25.7-32.2) pg MCHC 31.3 L (32.3-36.5) g/dL RDW 13.1 (11.6-14.4) % Plt Count 392 H (163-337) x10^3/uL MPV 9.7 (9.4-12.4) fL Gran % 69.9 H (34.0-67.9) % Immature Gran % (Auto) 0.3 (0.001-0.429) % Nucleat RBC Rel Count 0.0 (0.00-0.2) % Eos # (Auto) 0.38 (0.04-0.54) x10^3/uL Immature Gran # (Auto) 0.04 H (0.001-0.031) x10^3u/L Absolute Lymphs (auto) 2.13 (1.32-3.57) x10^3/uL Absolute Monos (auto) 1.00 H (0.30-0.82) x10^3/uL Absolute Nucleated RBC 0.00 (0.00-0.012) x10^3u/L Lymphocytes % 17.8 L (21.8-53.1) % Monocytes % 8.4 (5.3-12.2) % Eosinophils % 3.2 (0.8-7.0) % Basophils % 0.4 (0.2-1.2) % Absolute Granulocytes 8.35 H (1.78-5.38) x10^3/uL Basophils # 0.05 (0.01-0.08) x10^3/uL Sodium 141 (135-145) mmol/L Potassium 4.5 (3.5-5.1) mmol/L Chloride 103 (98-107) mmol/L Carbon Dioxide 27 (22-30) mmol/L Anion Gap 15.2 H (5-15) MEQ/L BUN 13 (9-20) mg/dL Creatinine 0.95 (0.66-1.25) mg/dL Estimated GFR 91.1 ML/MIN Glucose 110 H (74-106) mg/dL Calcium 9.6 (8.4-10.2) mg/dL Total Bilirubin 0.40 (0.2-1.3) mg/dL AST 21 (17-59) U/L ALT 15 (0-50) U/L Alkaline Phosphatase 95 (38-126) U/L Serum Total Protein 7.9 (6.3-8.2) g/dL Albumin 4.4 (3.5-5.0) g/dL - Progress Progress: improved, re-examined Progress Note: 12/27/24 11:06 I medical decision making and the assignment of moderate complexity of this patient's medical issue today is based on review of the patient's past medical history, review the patient's medication list, review the patient drug allergy list, history of present illness and physical findings on examination. The workup in this patient includes placement of a intravenous line, infusion of Benadryl venously, infusion of Pepcid intravenously, and subcutaneous instillation of epinephrine 0.3 mg. In addition we ordered a CBC, CMP and a C1 esterase inhibitor. We do not have the ability to order a C4 level, I see 1 inhibitor AQ or C1 inhibitor function test. Differential diagnosis includes but is not limited to allergic reaction, anaphylaxis, angioedema (histamine versus bradykinin induced) 12/27/24 11:48 I interpreted the patient's laboratory data results. The patient does have a mild leukocytosis and a mild thrombocytosis level. I do not feel the patient has an acute infectious process. The C1 esterase inhibitor level is a send out. I reexamined the patient and this patient's clinical findings and symptoms are improving. Will continue to observe him here for short time more and will remotely send prescription for Pepcid, prednisone and EpiPen's to his pharmacy. We are attempting to make an appointment with an early childhood so the patient can have a more thorough workup to determine the cause of these multiple, recurring episodes that may be angioedema. 12/27/24 12:21 I reexamined the patient and his clinical findings and symptoms are continuing to improve. 12/27/24 12:30 Patient is breathing comfortably. He has no wheezing. There is no stridor. The swelling has decreased significantly. His room air oxygen saturation level now is 97%. He is comfortable and wants to go home. We have attempted to contact several early childhood in the area and are waiting for calls to come back. The emergency room nurses are checking with [place] [facility] and if they are unable to secure an appointment we will provide him with names and phone numbers of early childhood to contact. 12/27/24 12:31 Counseled pt/family regarding: lab results, diagnosis, need for follow-up Medical Desision Making - Diagnostic Testing Diagnostic test were ordered, analyzed, and reviewed by me: Yes - Risk of complications The pt has a mod risk of morbidity or mortality based on: Need for prescription drug management - Departure Departure Disposition: Home Clinical Impression: Allergic reaction, Angioedema Condition: Stable Critical Care Time: No Referrals: ЕЛЕНА DOVER [Primary Care Provider, [facility]] - Follow up/PCP as directed Additional Instructions: Take your medications as prescribed. Follow-up with early childhood at recommended date and time. Make sure that you add Benadryl 25 mg orally 4 times a day for the next 4 days. Prescriptions: Prednisone 10 mg [Deltasone 10 mg] 10 mg PO TID #12 tablet EPINEPHrine [Epipen 2-Terry] 0.3 mg IJ UD #1 packet Famotidine 20 mg [Pepcid 20 MG] 20 mg PO DAILY #5 tablet
[2024-12-27] MEDS ORDERED: Epinephrine Preservative Free 1 MG/ML ONE (10:55)
[2024-12-27] MEDS ORDERED: BENADRYL 50 MG/ML ONE (10:55)
[2024-12-27] MEDS ORDERED: Pepcid 20 MG VIAL IV ONE (10:55)
[2024-12-27] MEDS: Pepcid 20 MG VIAL IV ONE (10:57)
[2024-12-27] MEDS: BENADRYL 50 MG/ML IV ONE (10:57)
[2024-12-27] MEDS: Epinephrine Preservative Free 1 MG/ML SQ ONE (10:57)
[2024-12-27 11:10] LABS: Absolute Neutrophil Ct (ANC) 8.35 x10^3/uL (1.78-5.38); BASOPHIL % 0.4 % (0.2-1.2); Basophil (Absolute #) 0.05 x10^3/uL (0.01-0.08); Eosinophil % 3.2 % (0.8-7.0); Eosinophil (Absolute #) 0.38 x10^3/uL (0.04-0.54); Hematocrit 45.4 % (40.1-51.0); Hemoglobin 14.2 g/dL (13.7-17.5); IMMATURE GRAN # 0.04 x10^3u/L (0.001-0.031); IMMATURE GRAN % 0.3 % (0.001-0.429); Lymphocyte (Absolute #) 2.13 x10^3/uL (1.32-3.57); Lymphocytes % 17.8 % (21.8-53.1); Mean Cell Volume 89.2 fL (79.0-92.2); Mean Corpuscular Hemoglobin 27.9 pg (25.7-32.2); Mean Corpuscular Hgb Concent. 31.3 g/dL (32.3-36.5); Mean Platelet Volume 9.7 fL (9.4-12.4); Monocytes % 8.4 % (5.3-12.2); Neutrophil % 69.9 % (34.0-67.9); Platelet Count 392 x10^3/uL (163-337); Red Blood Count 5.09 x10^6/uL (4.63-6.08); Red Cell Distribution Width 13.1 % (11.6-14.4)
[2024-12-27 11:23] LABS: ALBUMIN 4.4 g/dL (3.5-5.0); ANION GAP 15.2 MEQ/L (5-15); BILIRUBIN,TOTAL 0.4 mg/dL (0.2-1.3); Calcium 9.6 mg/dL (8.4-10.2); Creatinine 1 0.95 mg/dL (0.66-1.25); EST GLOMERULAR FILTRATION RATE 91.1 ML/MIN; Potassium 4.5 mmol/L (3.5-5.1); Total Protein 7.9 g/dL (6.3-8.2)
[2024-12-27] MEDS ORDERED: DUONEB 0.5-3 MG/3 ml Neb IH ONE (11:29)
[2024-12-27] MEDS: DUONEB 0.5-3 MG/3 ml Neb IH ONE (11:34)
[2024-12-27 12:22] VITALS: O2SAT 96
[2024-12-27 12:35] VITALS: BP 162/79; PULSE 66; RESP 19
== END 2024-12-27 12:44 | disposition home or self-care (01) ==
LOC: ED 10:35
DX: T78.40XA Allergy, unspecified, initial encounter (principal); T78.3XXA Angioneurotic edema, initial encounter; I10 Essential (primary) hypertension; Z79.01 Long term (current) use of anticoagulants; Z79.899 Other long term (current) drug therapy
CPT/HCPCS: 36415; 80053; 85025; 86160; 93041; 94640; 94760; 96374; 96375; 99284; J0171; J1200; A9270-GY

== ENCOUNTER 2025-01-16 07:55 | Emergency (ER) | payer OTHER ==
[2025-01-16 08:04] VITALS: TEMP 97.5
[2025-01-16] MEDS ORDERED: Epinephrine Preservative Free 1 MG/ML ONE (08:12)
[2025-01-16] MEDS: Epinephrine Preservative Free 1 MG/ML SQ ONE (08:14)
[2025-01-16] MEDS ORDERED: BENADRYL 50 MG/ML ONE (08:18)
[2025-01-16] MEDS ORDERED: Sterile H2O 10 ml IJ ONE (08:18)
[2025-01-16] MEDS ORDERED: solu-MEDROL ONE (08:18)
[2025-01-16] MEDS: solu-MEDROL 125 MG, Sterile H2O 10 ml 2 ML IV ONE (08:19)
[2025-01-16] MEDS: BENADRYL 50 MG/ML IV ONE (08:19)
[2025-01-16] MEDS ORDERED: Zofran 4 MG/2 ML VIAL ONE (08:31)
[2025-01-16] MEDS: Zofran 4 MG/2 ML VIAL IV ONE (08:33)
[2025-01-16 10:10] VITALS: BP 134/81; PULSE 66; RESP 17
[2025-01-16 10:13] VITALS: O2SAT 94
--- NOTE | 2025-01-16 10:13 | ERPHSYRPT ---
- History of Present Illness Source: patient Exam Limitations: no limitations Patient Subjective Stated Complaint: pt here for swelling to lower lip and right eye, pt has hx of angioedema. did not take meds at home Triage Nursing Assessment: pt alert, walked in, resp easy, skin w/d/p. swelling to lower lip and eight eye, no drooling Physician History: Patient has a history of angioedema. He is having an episode now. He had an appointment with an banana loader and had to miss it. He is going to reschedule. They do not know exactly what he is allergic to but they think it may be KAROLYN inhibitor's and ARB's.He does not have any respiratory distress. His airway is patent. He does not have a rash. He is breathing easily. He has some edema mainly in his left lower lip.His tongue is not involved and his pharynx is not involved.He is had this happen to him before. He is usually able to be discharged to home after we get it under control. He has not had any late phase reactions. He has not had any difficulties with rebound or relapse. Severity: moderate Associated Symptoms: denies symptoms Allergies/Adverse Reactions: codeine Allergy (Severe, Verified 01/16/25 07:59) Hives lisinopril Allergy (Severe, Verified 01/16/25 07:59) angioedema losartan Allergy (Severe, Verified 01/16/25 07:59) Swelling of Tongue and Lips Home Medications: Metoprolol Tartrate 50 mg [Lopressor 50 MG] 50 mg PO BID 09/27/23 [History] Amlodipine Besylate 5 mg [Norvasc 5 mg] 5 mg PO DAILY 01/22/24 [History] Furosemide 40 mg [Lasix 40 MG] 40 mg PO DAILY PRN 09/21/24 [History] Aspirin EC 81 mg [Ecotrin 81 mg] 81 mg PO DAILY 12/27/24 [History] Hx Tetanus, Diphtheria Vaccination/Date Given: Yes Hx Influenza Vaccination/Date Given: Yes Hx Pneumococcal Vaccination/Date Given: Yes Immunizations Up to Date: Yes Travel Risk - International Travel Have you traveled outside of the country in past 3 weeks: No - Emerging Infectious Disease Are you exhibiting symptoms associated with any current EIDs: No - Review of Systems Constitutional: No Symptoms Eyes: No Symptoms Ears, Nose, & Throat: Nose Pain Respiratory: No Symptoms All Other Systems: Reviewed and Negative - Past Medical History Pertinent Past Medical History: Yes Neurological History: Other ENT History: No Pertinent History Cardiac History: Hypertension, Other Respiratory History: Asthma Endocrine Medical History: No Pertinent History Musculoskeletal History: Other GI Medical History: Hepatitis History: No Pertinent History Psycho-Social History: No Pertinent History Male Reproductive Disorders: No Pertinent History Other Medical History: mrsa/ Hep C, sciatica, heart ablasion, angio edema-ch ronic - Past Surgical History Past Surgical History: Yes Neuro Surgical History: No Pertinent History Cardiac: No Pertinent History Respiratory: No Pertinent History Gastrointestinal: No Pertinent History Genitourinary: No Pertinent History Musculoskeletal: No Pertinent History Male Surgical History: No Pertinent History Other Surgical History: drainage tube in head, left eye, right chin Significant Family History: no pertinent family hx - Social History Smoking Status: Current some day smoker How long have you smoked: 13yo Exposure to second hand smoke: Yes Drug Use: none - Social Determinants of Health Will the patient participate in the screening: Yes Do you worry about a steady place to live?: No Do you have any problems with any of the following?: No known problems In the past 12 months,have you had to go without utilities?: No Transportation Issues: No Has anyone in your support network made you feel unsafe?: No Have you or anyone in your house had to go w/o enough food: No - Nursing Vital Signs Nursing Vital Signs: Initial Vital Signs Temperature 97.5 F 01/16/25 08:03 Pulse Rate 63 01/16/25 08:03 Respiratory Rate 18 01/16/25 08:03 Blood Pressure 175/116 01/16/25 08:03 O2 Sat by Pulse Oximetry 99 01/16/25 08:03 Pain Scale Pain Intensity 4 - Physical Exam General Appearance: no apparent distress Eye Exam: PERRL/EOMI Ears, Nose, Throat Exam: other (His pharynx is patent. His only involvement is in his lower lip and is mainly on the left.He does have a little bit of edema through his eyes bilaterally. His tongue is not involved.) Neck Exam: normal inspection, non-tender, supple, full range of motion Respiratory Exam: normal breath sounds, lungs clear, No chest tenderness, No respiratory distress Cardiovascular Exam: regular rate/rhythm Extremity Exam: normal inspection Neurologic Exam: alert, oriented x 3, No cooperative Skin Exam: normal color, warm, dry, No rash, No petechiae SpO2: 94 - Course Nursing assessment & vital signs reviewed: Yes Ordered Tests: Medication Summary Discontinued Medications Generic Name Dose Route Start Last Admin Trade Name Gaurav PRN Reason Stop Dose Admin Methylprednisolone Sodium 0 mg 01/16/25 08:09 01/16/25 08:19 Succinate 125 mg/ Sterile IV 01/16/25 08:10 125 mg Water 2 ml STAT ONE Administration Diphenhydramine HCl 50 mg 01/16/25 08:08 01/16/25 08:19 Diphenhydramine Hcl 50 Mg/Ml Vial IV 01/16/25 08:09 50 mg STAT ONE Administration Diphenhydramine HCl Confirm 01/16/25 08:18 Diphenhydramine Hcl 50 Mg/Ml Vial Administered 01/16/25 08:19 Dose 50 mg .ROUTE .STK-MED ONE Epinephrine HCl 1 mg 01/16/25 08:15 01/16/25 08:14 Epinephrine 1 Mg/1 Ml Pf Amp 1 Mg/Ml Ml SQ 01/16/25 08:16 0.5 mg ONCE ONE Administration Epinephrine HCl Confirm 01/16/25 08:12 Epinephrine 1 Mg/1 Ml Pf Amp 1 Mg/Ml Ml Administered 01/16/25 08:13 Dose 1 mg .ROUTE .STK-MED ONE Methylprednisolone Sodium Succinate Confirm 01/16/25 08:18 Methylprednis Sod Succ 125 Mg/2 Ml Vial Administered 01/16/25 08:19 Dose 125 mg .ROUTE .STK-MED ONE Ondansetron HCl 4 mg 01/16/25 08:29 01/16/25 08:33 Ondansetron Hcl 4 Mg/2 Ml Vial IV 01/16/25 08:30 4 mg STAT ONE Administration Ondansetron HCl Confirm 01/16/25 08:31 Ondansetron Hcl 4 Mg/2 Ml Vial Administered 01/16/25 08:32 Dose 4 mg .ROUTE .STK-MED ONE Sterile Water Confirm 01/16/25 08:18 Water For Injection,Sterile 10 Ml Vial Administered 01/16/25 08:19 Dose 10 ml IJ .STK-MED ONE - Progress Progress: improved Progress Note: Patient was stable throughout stay. I gave him 0.5 of epi subcutaneously. He was also given Solu-Medrol 125 mg IV. And 50 mg of Benadryl IV. His symptoms have basically completely resolved. I am going to have him take Benadryl at home. I suggested 50 mg 3 times a day. He is also to start his prednisone at 20 mg 3 times a day. I would have him start that around 2 PM. And he has an EpiPen at home. 01/16/25 10:10 Medical Desision Making - Risk of complications Low Risk: Low risk of morbidity from additional dx testing or treatment - Departure Departure Disposition: Home Clinical Impression: Angioedema of lips Condition: Stable Critical Care Time: No Referrals: ЕЛЕНА DOVER [Primary Care Provider, [facility]] - Follow up/PCP as directed Instructions: Angioedema
== END 2025-01-16 10:21 | disposition home or self-care (01) ==
LOC: ED 07:55
DX: T78.3XXA Angioneurotic edema, initial encounter (principal); I10 Essential (primary) hypertension; Z79.52 Long term (current) use of systemic steroids; Z79.899 Other long term (current) drug therapy; Z72.0 Tobacco use
CPT/HCPCS: 96374; 96375; 99283; 99284; J0171; J1200; J2405; J2919

== ENCOUNTER 2025-03-30 09:52 | Emergency (ER) | payer OTHER ==
[2025-03-30] MEDS: DUONEB 0.5-3 MG/3 ml Neb IH ONE (10:09)
[2025-03-30 10:11] VITALS: TEMP 97
--- NOTE | 2025-03-30 10:15 | ERPHSYRPT ---
- History of Present Illness Time Seen by Provider: 03/30/25 10:05 Source: patient Exam Limitations: no limitations Physician History: This is a 59-year-old edentulous right male patient who presents to the emergency department by private vehicle secondary to tongue swelling that came on relatively rapidly this morning within an hour after taking his high blood pressure medication. Patient has a history of perioral, labial and lingual swelling in the past. Patient felt tingling of his tongue followed by swelling and therefore he took an injection of his EpiPen prior to arrival. He drove in on his own. His room air oxygen saturation level is 93 to 95%. He has no lip swelling. Patient has a history of asthma, COPD, hypertension, sciatica and hepatitis. Patient has history of idiopathic angioedema. Severity: mild Associated Symptoms: shortness of breath (Mild with wheezing that is mild), No chest pain Allergies/Adverse Reactions: codeine Allergy (Severe, Verified 01/16/25 07:59) Hives lisinopril Allergy (Severe, Verified 01/16/25 07:59) angioedema losartan Allergy (Severe, Verified 01/16/25 07:59) Swelling of Tongue and Lips Home Medications: Metoprolol Tartrate 50 mg [Lopressor 50 MG] 50 mg PO BID 09/27/23 [History] Amlodipine Besylate 5 mg [Norvasc 5 mg] 5 mg PO DAILY 01/22/24 [History] Furosemide 40 mg [Lasix 40 MG] 40 mg PO DAILY PRN 09/21/24 [History] Aspirin EC 81 mg [Ecotrin 81 mg] 81 mg PO DAILY 12/27/24 [History] Rivaroxaban [Xarelto] 20 mg PO DAILY 03/30/25 [History] Hx Tetanus, Diphtheria Vaccination/Date Given: Yes Hx Influenza Vaccination/Date Given: Yes Hx Pneumococcal Vaccination/Date Given: Yes Travel Risk - International Travel Have you traveled outside of the country in past 3 weeks: No - Emerging Infectious Disease Are you exhibiting symptoms associated with any current EIDs: No - Review of Systems Constitutional: No Symptoms Eyes: No Symptoms Ears, Nose, & Throat: Other (Mild but noticeable lingual swelling) Respiratory: Dyspnea, Wheezing (Mild bilateral mild and diffuse), No Cough, No Stridor Cardiac: No Symptoms Abdominal/Gastrointestinal: No Symptoms Genitourinary Symptoms: No Symptoms Musculoskeletal: No Symptoms Skin: No Symptoms Neurological: No Symptoms Psychological: No Symptoms Endocrine: No Symptoms Hematologic/Lymphatic: No Symptoms Immunological/Allergic: No Symptoms All Other Systems: Reviewed and Negative - Past Medical History Pertinent Past Medical History: Yes Neurological History: Other ENT History: No Pertinent History Cardiac History: Hypertension, Other Respiratory History: Asthma Endocrine Medical History: No Pertinent History Musculoskeletal History: Other GI Medical History: Hepatitis History: No Pertinent History Psycho-Social History: No Pertinent History Male Reproductive Disorders: No Pertinent History Other Medical History: mrsa/ Hep C, sciatica, heart ablasion, angio edema- chronic - Past Surgical History Past Surgical History: Yes Neuro Surgical History: No Pertinent History Cardiac: No Pertinent History Respiratory: No Pertinent History Gastrointestinal: No Pertinent History Genitourinary: No Pertinent History Musculoskeletal: No Pertinent History Male Surgical History: No Pertinent History Other Surgical History: drainage tube in head, left eye, right chin Significant Family History: no pertinent family hx - Social History Smoking Status: Current some day smoker How long have you smoked: 13yo Exposure to second hand smoke: Yes Drug Use: none - Social Determinants of Health Will the patient participate in the screening: Yes Do you worry about a steady place to live?: No In the past 12 months,have you had to go without utilities?: No Transportation Issues: No Has anyone in your support network made you feel unsafe?: No Have you or anyone in your house had to go w/o enough food: No - Nursing Vital Signs Nursing Vital Signs: Initial Vital Signs Temperature 97.0 F 03/30/25 09:55 Pulse Rate 119 H 03/30/25 09:55 Respiratory Rate 24 03/30/25 09:55 Blood Pressure 161/119 03/30/25 09:55 O2 Sat by Pulse Oximetry 93 L 03/30/25 09:55 Pain Scale Pain Intensity 0 - Physical Exam General Appearance: mild distress, alert, anxiety Eye Exam: PERRL/EOMI, eyes nml inspection Ears, Nose, Throat Exam: normal ENT inspection, moist mucous membranes, other (Mild lingual swelling. 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, nml cerebellar function, nml station & gait, sensation nml Skin Exam: normal color, warm, dry Lymphatic Exam: No adenopathy SpO2 Interpretation: normal O2 Delivery: Room Air - Course Nursing assessment & vital signs reviewed: Yes Ordered Tests: Active Orders 24 hr Category Date Time Status Therapeutic Recreation Assistant STAT Care 03/30/25 10:03 Active IV Insertion STAT Care 03/30/25 10:03 Active Pulse Oximetry (ED) STAT Care 03/30/25 10:03 Active CBC W DIFF Stat Lab 03/30/25 10:10 Completed Respiratory Therapy Assessment DAILY RT 03/30/25 10:10 Active Medication Summary Discontinued Medications Generic Name Dose Route Start Last Admin Trade Name Freq PRN Reason Stop Dose Admin Albuterol Sulfate 2.5 mg 03/30/25 10:03 Albuterol Sulfate 2.5 Mg/3 Ml [facility] 03/30/25 10:04 STAT ONE Albuterol/Ipratropium 3 ml 03/30/25 10:08 03/30/25 10:09 Ipratropium/Albuterol Sulfate 3 Ml [facility] 03/30/25 10:09 3 ml STAT ONE Administration Methylprednisolone Sodium 0 mg 03/30/25 10:03 03/30/25 10:24 Succinate 125 mg/ Sterile IV 03/30/25 10:04 125 mg Water 2 ml STAT ONE Administration Methylprednisolone Sodium 0 mg 03/30/25 11:28 Succinate 125 mg/ Sterile IV 03/30/25 11:29 Water 2 ml STAT ONE Diphenhydramine HCl 50 mg 03/30/25 10:03 03/30/25 10:24 Diphenhydramine Hcl 50 Mg/Ml Vial IV 03/30/25 10:04 50 mg STAT ONE Administration Diphenhydramine HCl Confirm 03/30/25 10:21 Diphenhydramine Hcl 50 Mg/Ml Vial Administered 03/30/25 10:22 Dose 50 mg .ROUTE .[facility] ONE Famotidine 40 mg 03/30/25 10:03 03/30/25 10:24 Famotidine 20 Mg/1 Vial IV 03/30/25 10:04 40 mg STAT ONE Administration Famotidine Confirm 03/30/25 10:21 Famotidine 20 Mg/1 Vial Administered 03/30/25 10:22 Dose 20 mg IV .[facility] ONE Famotidine Confirm 03/30/25 10:25 Famotidine 20 Mg/1 Vial Administered 03/30/25 10:26 Dose 20 mg IV .STK-[facility] ONE Methylprednisolone Sodium Succinate Confirm 03/30/25 10:21 Methylprednis Sod Succ 125 Mg/2 Ml Vial Administered 03/30/25 10:22 Dose 125 mg .ROUTE .[facility] ONE Sterile Water Confirm 03/30/25 10:21 Water For Injection,Sterile 10 Ml Vial Administered 03/30/25 10:22 Dose 10 ml IJ .STK-[facility] ONE Lab/Rad Data: Laboratory Result Diagrams 03/30/25 10:10 Laboratory Results 03/30/25 Range/Units 10:10 WBC 6.8 (4.23-9.07) x10^3/uL RBC 4.95 (4.63-6.08) x10^6/uL Hgb 14.1 (13.7-17.5) g/dL Hct 44.4 (40.1-51.0) % MCV 89.7 (79.0-92.2) fL MCH 28.5 (25.7-32.2) pg MCHC 31.8 L (32.3-36.5) g/dL RDW 13.8 (11.6-14.4) % Plt Count 308 (163-337) x10^3/uL MPV 9.6 (9.4-12.4) fL Gran % 50.3 (34.0-67.9) % Immature Gran % (Auto) 0.1 (0.001-0.429) % Nucleat RBC Rel Count 0.0 (0.00-0.2) % Eos # (Auto) 0.53 (0.04-0.54) x10^3/uL Immature Gran # (Auto) 0.01 (0.001-0.031) x10^3u/L Absolute Lymphs (auto) 2.16 (1.32-3.57) x10^3/uL Absolute Monos (auto) 0.59 (0.30-0.82) x10^3/uL Absolute Nucleated RBC 0.00 (0.00-0.012) x10^3u/L Lymphocytes % 32.0 (21.8-53.1) % Monocytes % 8.7 (5.3-12.2) % Eosinophils % 7.9 H (0.8-7.0) % Basophils % 1.0 (0.2-1.2) % Absolute Granulocytes 3.39 (1.78-5.38) x10^3/uL Basophils # 0.07 (0.01-0.08) x10^3/uL - Progress Progress: improved Progress Note: 03/30/25 10:13 My medical decision making and the assignment of moderate complexity to this patient's medical issue today is based on review of the patient's past medical history, review the patient's medication list, review of patient drug allergy list, history present illness and physical findings on examination. The workup in this patient includes placement of intravenous line, CBC, CMP, respiratory therapy evaluation management, albuterol nebulizer treatment, infusion of intravenous Benadryl, famotidine and Solu-Medrol. Differential diagnosis includes but is not limited to allergic reaction, angioedema, contact dermatitis 03/30/25 11:33 The patient is subjectively and clinically improving. His tongue swelling has improved. He has no stridor. His wheezing is resolved. We will provide him with an additional 125 mg Solu-Medrol as there still is some swelling of his tongue present. His room air oxygen saturation has improved to 98%. Counseled pt/family regarding: lab results, diagnosis, need for follow-up Medical Desision Making - Diagnostic Testing Diagnostic test were ordered, analyzed, and reviewed by me: Yes - Risk of complications The pt has a mod risk of morbidity or mortality based on: Need for prescription drug management - Departure Departure Disposition: Home Clinical Impression: Swollen tongue Condition: Stable Critical Care Time: No Referrals: ЕЛЕНА DOVER [Primary Care Provider, INTERNAL MEDICINE] - Follow up/PCP as directed Additional Instructions: Call your primary care provider today, 03/30/2025, to make arrangements for follow-up appointment to be seen in the next 3 to 5 days. Return to the emergency department if symptoms recur/worsen. Continue outpatient Benadryl 50 mg orally 3 times a day for the next 4 days Prescriptions: Prednisone 10 mg [Deltasone 10 mg] 10 mg PO TID #12 tablet Famotidine 20 mg [Pepcid 20 MG] 20 mg PO DAILY #5 tablet
[2025-03-30] MEDS ORDERED: Pepcid 20 MG VIAL IV ONE ×2 (10:21→10:25)
[2025-03-30] MEDS ORDERED: BENADRYL 50 MG/ML ONE (10:21)
[2025-03-30] MEDS ORDERED: Sterile H2O 10 ml IJ ONE ×2 (10:21→11:42)
[2025-03-30 10:22] LABS: BASOPHIL % 1.0 % (0.2-1.2); Basophil (Absolute #) 0.07 x10^3/uL (0.01-0.08); Eosinophil (Absolute #) 0.53 x10^3/uL (0.04-0.54); Hematocrit 44.4 % (40.1-51.0); Hemoglobin 14.1 g/dL (13.7-17.5); IMMATURE GRAN # 0.01 x10^3u/L (0.001-0.031); IMMATURE GRAN % 0.1 % (0.001-0.429); Lymphocyte (Absolute #) 2.16 x10^3/uL (1.32-3.57); Mean Corpuscular Hemoglobin 28.5 pg (25.7-32.2); Mean Corpuscular Hgb Concent. 31.8 g/dL (32.3-36.5); Monocyte (Absolute #) 0.59 x10^3/uL (0.30-0.82); NUCLEATED RBC # 0.00 x10^3u/L (0.00-0.012); NUCLEATED RBC % 0.0 % (0.00-0.2); Platelet Count 308 x10^3/uL (163-337); Red Blood Count 4.95 x10^6/uL (4.63-6.08); White Blood Count 6.8 x10^3/uL (4.23-9.07)
[2025-03-30] MEDS: Pepcid 20 MG VIAL IV ONE (10:24)
[2025-03-30] MEDS: solu-MEDROL 125 MG, Sterile H2O 10 ml 2 ML IV ONE ×2 (10:24→11:43)
[2025-03-30] MEDS: BENADRYL 50 MG/ML IV ONE (10:24)
[2025-03-30] MEDS ORDERED: PROVENTIL 2.5 MG/3 ML NEB IH ONE (11:45)
[2025-03-30] MEDS: PROVENTIL 2.5 MG/3 ML NEB IH ONE (11:46)
[2025-03-30 12:41] VITALS: RESP 18
[2025-03-30 12:47] VITALS: BP 105/88; PULSE 91; O2SAT 98
== END 2025-03-30 12:48 | disposition home or self-care (01) ==
LOC: ED 09:52
DX: K14.8 Other diseases of tongue (principal); I10 Essential (primary) hypertension; Z79.01 Long term (current) use of anticoagulants; Z79.899 Other long term (current) drug therapy; Z72.0 Tobacco use